=== PATIENT | male | born 1985 | race African-American/Black ===

== ENCOUNTER 2016-05-12 12:33 | Emergency (ER) | payer MEDICAID ==
--- NOTE | 2016-05-12 12:47 | ER Document Report ---
ED Medical Screen (RME) - General Stated Complaint: CHEST DISCOMFORT Mode of Arrival: Ambulatory Information source: Patient Notes: Patient complains of palpitations this morning off and on. Patient denies any chest pain, nausea, vomiting, or shortness of breath. hx: Hypertension, right bundle branch block I have greeted and performed a rapid initial assessment of this patient. A comprehensive ED assessment and evaluation of the patient, analysis of test results and completion of the medical decision making process will be conducted by additional ED providers. TRAVEL OUTSIDE OF THE [place] IN LAST 30 DAYS: No - Related Data Allergies/Adverse Reactions: sulfamethoxazole [From Bactrim] Allergy (Verified 07/08/15 13:34) trimethoprim [From Bactrim] Allergy (Verified 07/08/15 13:34) Past Medical History - Past Medical History Cardiac Medical History: Reports: Hx Hypercholesterolemia, Hx Hypertension Psychiatric Medical History: Denies: Hx Depression - Immunizations Immunizations up to date: Yes Hx Diphtheria, Pertussis, Tetanus Vaccination: Yes Physical Exam - Cardiovascular Rhythm: Regular Heart sounds: S1 appreciated, S2 appreciated
[2016-05-12 13:51] LABS: HEMATOCRIT 51.3 % (37.9-51.0); HEMOGLOBIN 17.3 g/dL (13.5-17.0); HGB HCT DIFFERENCE 0.6; MEAN CORPUSCULAR HEMOGLOBIN 27.9 pg (27.0-33.4); MEAN CORPUSCULAR HGB CONC 33.7 g/dL (32.0-36.0); MEAN CORPUSCULAR VOLUME 83 fl (80-97); RED CELL DISTRIBUTION WIDTH 14.3 % (11.5-14.0); WHITE BLOOD COUNT 4.8 10^3/uL (4.0-10.5)
[2016-05-12 14:08] LABS: ALANINE AMINOTRANSFERASE 61 U/L (21-72); ALBUMIN 4.3 g/dL (3.5-5.0); ALKALINE PHOSPHATASE 254 U/L (38-126); ANION GAP 10 (5-19); ASPARTATE AMINO TRANSFERASE 48 U/L (17-59); BILIRUBIN,TOTAL 0.9 mg/dL (0.2-1.3); BLOOD UREA NITROGEN 19 mg/dL (7-20); CARBON DIOXIDE 25 mmol/L (22-30); CHLORIDE 102 mmol/L (98-107); CREATINE KINASE 110 U/L (55-170); CREATININE RESULT 1.36 mg/dL (0.52-1.25); GLUCOSE 88 mg/dL (75-110); MAGNESIUM 1.8 mg/dL (1.6-2.3); POTASSIUM 4.5 mmol/L (3.6-5.0); TOTAL PROTEIN 7.4 g/dL (6.3-8.2)
[2016-05-12 14:24] LABS: BASOPHILS % (MANUAL) 0 % (0-2); EOSINOPHILS % (MANUAL) 4 % (0-6); LYMPHOCYTES % (MANUAL) 17 % (13-45); TOTAL CELLS COUNTED 100
[2016-05-12 14:25] LABS: RBC MORPHOLOGY COMMENT NORMO-CYTIC/CHROMIC
[2016-05-12 14:26] LABS: CREATINE KINASE MB 0.79 ng/mL (<4.55)
[2016-05-12 14:27] LABS: TROPONIN I < 0.012 ng/mL
--- NOTE | 2016-05-12 14:40 | ER Document Report ---
ED Cardiac - General Chief Complaint: Palpitations Stated Complaint: CHEST DISCOMFORT Time seen by provider: 14:40 Mode of Arrival: Ambulatory Information source: Patient Notes: 30-year-old male with a history of right bundle monik block and PVCs is treated by mail teller Dr. Holguin at [facility]. One year ago they did an ablation and he did not feel any PVCs for 8 months until last night He thinks he forgot one of his flecainide 100 mg that he supposed to take twice a day. He had run out he didn't get it filled untiltoday and took the dose at 11 AM. He has fewer PVCs since he took it 4 hours ago. He wants to make sure his blood work is okay. He has no chest pain or shortness of breath. TRAVEL OUTSIDE OF THE [place] IN LAST 30 DAYS: No - Related Data Allergies/Adverse Reactions: sulfamethoxazole [From Bactrim] Allergy (Verified 07/08/15 13:34) trimethoprim [From Bactrim] Allergy (Verified 07/08/15 13:34) Past Medical History - General Information source: Patient - Social History Smoking Status: Current Every Day Smoker Chew tobacco use (# tins/day): No Frequency of alcohol use: None Drug Abuse: None Lives with: Spouse/Significant other Family History: Reviewed & Not Pertinent Patient has suicidal ideation: No Patient has homicidal ideation: No - Past Medical History Cardiac Medical History: Reports: Hx Hypercholesterolemia, Hx Hypertension Renal/ Medical History: Denies: Hx Peritoneal Dialysis Past Surgical History: Reports: Hx Cardiac Surgery - ablation 1 year ago - Immunizations Immunizations up to date: Yes Hx Diphtheria, Pertussis, Tetanus Vaccination: Yes Review of Systems - Review of Systems Constitutional: No symptoms reported EENT: No symptoms reported Cardiovascular: See HPI Respiratory: No symptoms reported Gastrointestinal: No symptoms reported Genitourinary: No symptoms reported Male Genitourinary: No symptoms reported Musculoskeletal: No symptoms reported Skin: No symptoms reported Hematologic/Lymphatic: No symptoms reported Neurological/Psychological: No symptoms reported Physical Exam - Vital signs Vitals: Temp Pulse Resp BP Pulse Ox 97.7 F 89 19 121/77 99 05/12/16 12:45 05/12/16 12:45 05/12/16 12:45 05/12/16 12:45 05/12/16 12:45 Interpretation: Normal - General General appearance: Appears well, Alert - HEENT Head: Normocephalic, Atraumatic Eyes: Normal Conjunctiva: Normal Pupils: PERRL Pharynx: Normal Neck: Supple. No: Lymphadenopathy, Thyromegally - Respiratory Respiratory status: No respiratory distress Chest status: Nontender Breath sounds: Normal Chest palpation: Normal - Cardiovascular Rhythm: Regular Heart sounds: Normal auscultation Murmur: No - Abdominal Inspection: Normal Distension: No distension Bowel sounds: Normal Tenderness: Nontender Organomegaly: No organomegaly - Back Back: Normal, Nontender. No: CVA tenderness - Extremities General upper extremity: Normal inspection, Nontender, Normal color, Normal ROM , Normal temperature General lower extremity: Normal inspection, Nontender, Normal color, Normal ROM , Normal temperature, Normal weight bearing. No: Abel's sign - Neurological Neuro grossly intact: Yes Cognition: Normal Orientation: AAOx4 [place] Coma Scale Eye Opening: Spontaneous [place] Coma Scale Verbal: Oriented Enrique Coma Scale Motor: Obeys Commands Enrique Coma Scale Total: 15 Speech: Normal Motor strength normal: LUE, RUE, LLE, RLE Sensory: Normal - Psychological Associated symptoms: Normal affect, Normal mood - Skin Skin Temperature: Warm Skin Moisture: Dry Skin Color: Normal Skin irregularity: negative: Rash Course - Re-evaluation Re-evalutation: 05/12/16 15:41 hemoconcentrated. TSH 0.[address] lopez. who he can follow up with for the possible hyperthyroidism, consult dr. bell he can go home and follow up with the mail teller for the resurgence of PVC's 05/12/16 18:24 Free T3 and free T4 are within normal limits. The patient called me back and he googled about elevated creatinine and thyroid function and found that the Biotin supplement that he has been taking may cause that so he is going to stop it and see Dr. Lopez next week. - Vital Signs Vital signs: Temp Pulse Resp BP Pulse Ox 97.7 F 89 17 114/84 98 05/12/16 13:00 05/12/16 13:00 05/12/16 16:14 05/12/16 16:14 05/12/16 15:01 - Laboratory Result Diagrams: 05/12/16 13:35 05/12/16 13:35 Laboratory results interpreted by me: 02/18/17 02/18/17 02/18/17 13:35 13:35 13:35 RBC 6.20 H Hgb 17.3 H Hct 51.3 H RDW 14.3 H Monocytes % (Manual) 17 H Creatinine 1.36 H Alkaline Phosphatase 254 H TSH 0.07 L - EKG Interpretation by Me EKG shows normal: Sinus rhythm Rate: Normal Rhythm: PVC's - a few on the bedside monitor unifocal [place]/QRS: RBBB Additional EKG results interpreted by me: 05/12/16 20:33 no ekg changes from previous ekg's Discharge - Discharge Clinical Impression: Unifocal PVCs, possible hyperthyroidism, mild elevation of creatinine Condition: Good Disposition: HOME, SELF-CARE Instructions: PVCs (REPLACED BY [facility]) Additional Instructions: see Dr. Lopez for the possible overactive thyroid (hyperthyroidism) and the mildly elevated creatinine that he will have to recheck and possibly refer to telephone appointment clerk and herpetology teacher See your mail teller for follow-up in [place] Return to the emergency room for any worsening symptoms call me in 2 hours at [phone] for the thyroid additional test results Referrals: MARYLU HORNE MD [Primary Care Provider] - Follow up as needed
[2016-05-12 16:17] VITALS: BP 114/84
[2016-05-12 16:51] LABS: FREE T3 3.95 pg/mL (2.77-5.27)
--- NOTE | 2016-05-12 18:39 | EKG REPORT ---
SEVERITY:- ABNORMAL ECG - SINUS RHYTHM RBBB AND LPFB CONSIDER INFERIOR INFARCT : Confirmed by: Robert Cabrera 12-May-2016 18:39:23
== END 2016-05-12 16:17 | disposition home or self-care (01) ==
LOC: ER 12:33
DX: I49.3 Ventricular premature depolarization (principal); R00.2 Palpitations; R07.9 Chest pain, unspecified; F17.210 Nicotine dependence, cigarettes, uncomplicated
CPT/HCPCS: 36415; 71020; 80053; 82550; 82553; 83735; 84439; 84443; 84481; 84484; 85025; 93005; 93010; 99285

== ENCOUNTER → 2016-05-16 | Outpatient (CLI) | payer OTHER ==
[2016-05-16 14:15] LABS: ANION GAP 12 (5-19); BLOOD UREA NITROGEN 20 mg/dL (7-20); CALCIUM 9.9 mg/dL (8.4-10.2); CARBON DIOXIDE 22 mmol/L (22-30); CHLORIDE 101 mmol/L (98-107); CHOLESTEROL 164.57 mg/dL (0-200); CREATININE RESULT 1.42 mg/dL (0.52-1.25); Direct HDL 28 mg/dL (>40); GLUCOSE 86 mg/dL (75-110); MAGNESIUM 1.8 mg/dL (1.6-2.3); POTASSIUM 4.6 mmol/L (3.6-5.0); TRIGLYCERIDES 163 mg/dL (<150)
[2016-05-16 14:26] LABS: DIRECT LDL 88 mg/dL (<100)
[2016-05-16 14:31] LABS: VLDL CHOLESTEROL 32.6 mg/dL (10-31)
== END ==
LOC: CCC 12:50
DX: I10 Essential (primary) hypertension (principal); E78.5 Hyperlipidemia, unspecified; I49.9 Cardiac arrhythmia, unspecified
CPT/HCPCS: 36415; 80048; 80061; 83735

== ENCOUNTER → 2016-09-23 | Outpatient (CLI) | payer SELFPAY ==
--- NOTE | 2016-09-23 13:55 | RADIOLOGY REPORT (SQ) ---
EXAM DESCRIPTION: HIP LEFT AP/LATERAL COMPLETED DATE/TIME: 09/23/2016 11:53 am REASON FOR STUDY: LT HIP PAIN, OLD INJURY M25.552 COMPARISON: 05/25/2014 NUMBER OF VIEWS: Two views. TECHNIQUE: AP pelvis and additional frog-leg view of the left hip. LIMITATIONS: None. FINDINGS: MINERALIZATION: Normal. LEFT HIP: 3 cm nonaggressive lesion well corticated in the intertrochanteric left femur stable. Poss ible tiny loose bodies in the joint. RIGHT HIP: No fracture or dislocation. No worrisome bone lesions. PUBIS AND ISCHIUM: No fracture. PELVIS: No fracture. SACRUM: No fracture or dislocation. No worrisome bone lesions. LOWER LUMBAR SPINE: No fracture or dislocation. No worrisome bone lesions. No significant disc disea se. SOFT TISSUES: No findings. OTHER: No other significant finding. IMPRESSION: Stable lesion proximal left femur nonaggressive possibly bone cyst. Tiny radiodensities possible loose bodies in left hip joint. TECHNICAL DOCUMENTATION: JOB ID: [id number]- All Rights Reserved
== END ==
LOC: RAD 10:44
DX: M25.552 Pain in left hip (principal)

== ENCOUNTER 2016-12-19 16:09 | Emergency (ER) | payer SELFPAY ==
--- NOTE | 2016-12-19 16:47 | ER Document Report ---
ED General - General Chief Complaint: Dizziness Stated Complaint: DIZZINESS Time Seen by Provider: 12/19/16 16:45 Notes: The patient is a 31-year-old male, past medical history PVCs s/p ablation, hypertension, presents with 2 days of dry cough and congestion. Multiple family members have URI symptoms at home. He took his blood pressure earlier today and it was 90/65 after he took his blood pressure medications. On arrival to the ER, his blood pressure is 119/72. He denies fevers, hemoptysis, nausea, vomiting, diarrhea, constipation, focal weakness, numbness, tingling or dysuria. TRAVEL OUTSIDE OF THE [place] IN LAST 30 DAYS: No - Related Data Allergies/Adverse Reactions: sulfamethoxazole [From Bactrim] Allergy (Verified 12/19/16 16:13) trimethoprim [From Bactrim] Allergy (Verified 12/19/16 16:13) Home Medications: Current Home Medications Flecainide Acetate [Tambocor 100 mg Tablet] 1 tab PO BID 12/19/16 [History] Magnesium Oxide [Magnesium Oxide] 1 tab PO TID 12/19/16 [History] Potassium Chloride [Klor-Con 10] 10 meq PO DAILY 12/19/16 [History] Valsartan [Diovan] 160 mg PO DAILY 12/19/16 [History] Past Medical History - General Information source: Patient - Social History Smoking Status: Unknown if Ever Smoked Family History: Reviewed & Not Pertinent - Past Medical History Cardiac Medical History: Reports: Hx Hypercholesterolemia, Hx Hypertension Renal/ Medical History: Denies: Hx Peritoneal Dialysis Psychiatric Medical History: Denies: Hx Depression Past Surgical History: Reports: Hx Cardiac Surgery - ablation 1 year ago - Immunizations Immunizations up to date: Yes Hx Diphtheria, Pertussis, Tetanus Vaccination: Yes Review of Systems - Review of Systems Notes: REVIEW OF SYSTEMS: CONSTITUTIONAL: -fevers, -chills EENT: -eye pain, -difficulty swallowing, -nasal congestion CARDIOVASCULAR:-chest pain, -syncope. RESPIRATORY: +cough, -SOB GASTROINTESTINAL: -abdominal pain, - nausea, -vomiting, -diarrhea GENITOURINARY: -dysuria, -hematuria MUSCULOSKELETAL: -back pain, -neck pain SKIN: -rash or skin lesions. HEMATOLOGIC: -easy bruising or bleeding. LYMPHATIC: -swollen, enlarged glands. NEUROLOGICAL: -altered mental status or loss of consciousness, -headache, - neurologic symptoms PSYCHIATRIC: -anxiety, -depression. ALL OTHER SYSTEMS REVIEWED AND NEGATIVE. Physical Exam - Vital signs Vitals: Temp Pulse Resp BP Pulse Ox 98.7 F 91 16 114/71 99 12/19/16 16:13 12/19/16 16:13 12/19/16 16:13 12/19/16 16:13 12/19/16 16:13 - Notes Notes: PHYSICAL EXAMINATION: GENERAL: Well-appearing, well-nourished and in no acute distress. HEAD: Atraumatic, normocephalic. EYES: Pupils equal round and reactive to light, extraocular movements intact, sclera anicteric, conjunctiva are normal. ENT: nares patent, oropharynx clear without exudates. Moist mucous membranes. NECK: Normal range of motion, supple without lymphadenopathy LUNGS: Breath sounds clear to auscultation bilaterally and equal. No wheezes rales or rhonchi. HEART: Regular rate and rhythm without murmurs ABDOMEN: Soft, nontender, normoactive bowel sounds. No guarding, no rebound. No masses appreciated. EXTREMITIES: Normal range of motion, no pitting or edema. No cyanosis. NEUROLOGICAL: Cranial nerves grossly intact. Normal speech, normal gait. Normal sensory and motor exams. PSYCH: Normal mood, normal affect. SKIN: Warm, Dry, normal turgor, no rashes or lesions noted. Course - Re-evaluation Re-evalutation: Patient appears well and he has normal vital signs. His chest x-ray does not show any focal infiltrates or any acute changes. Told him to hold his evening amlodipine tonight due to his prior low blood pressures at home and to follow- up with his pathology technologist for further evaluation and treatment. Instructed patient about URI management symptomatically and he understands. - Vital Signs Vital signs: Temp Pulse Resp BP Pulse Ox 98.7 F 91 18 114/71 99 12/19/16 16:13 12/19/16 16:13 12/19/16 16:35 12/19/16 16:13 12/19/16 16:13 - Diagnostic Test Radiology reviewed: Image reviewed, Reports reviewed Radiology results interpreted by me: CXR: NAD Discharge - Discharge Clinical Impression: Cough URI (upper respiratory infection) Qualifiers: URI type: unspecified URI Qualified Code(s): J06.9 - Acute upper respiratory infection, unspecified Condition: Stable Disposition: HOME, SELF-CARE Additional Instructions: Do not take your amlodipine tonight. Keep a blood pressure log and speak to your pathology technologist for further adjustments to your medications. UPPER RESPIRATORY ILLNESS: You have a viral infection of the respiratory passages -- a "cold." This common infection causes nasal congestion, drainage, and often sore throat and cough. It is highly contagious. The disease usually lasts about 10 to 14 days. There is no "cure" for the viral infection -- it must run its course. If there is a complication, such as bacterial infection in the nose, sinuses, middle ear, or bronchial tubes, antibiotics may be required. The antibiotics won't affect the virus. Drink plenty of fluids. A humidifier may help. An expectorant medication or decongestant may make you more comfortable. Use acetaminophen or ibuprofen for fever or aches. See the doctor if fever persists over two days, if there is any significant worsening of your symptoms, or if you simply fail to improve as expected. COUGH-SUPPRESSANT & EXPECTORANT MEDICATION: You are to use a cough medication as needed for relief of symptoms. This medicine is a combination of an expectorant (to make the mucous thinner and more easily "coughed up") and a cough suppressant (to reduce the frequency of coughing). The cough-suppressant medicine is related to narcotics. You may experience mild nausea and sleepiness. Some patients who are very sensitive to narcotics may have stomach pain from this medicine. Taking the medicine with food reduces these side effects. Do not drive or work with machinery until you know how this medicine affects you. The expectorant should have no side effects. Iodine-containing expectorants (such as organidin) should not be taken by persons with active thyroid disease unless approved by your doctor. Call the doctor if you develop shortness of breath, hives, rash, itching, lightheadedness, or severe nausea and vomiting. USE OF ACETAMINOPHEN (Tylenol): Acetaminophen may be taken for pain relief or fever control. It's much safer than aspirin, offering a wider range of "safe" dosages. It is safe during . Some brand names are Tylenol, Panadol, Datril, Anacin 3, Tempra, and Liquiprin. Acetaminophen can be repeated every four hours. The following are maximum recommended dosages: >89 pounds or adults 650 mg to 900 mg Acetaminophen can be repeated every four hours. Maximum dose not to exceed 4000 mg a day. SMOKING: If you smoke, you should stop smoking. The tar and chemicals in cigarette smoke are harmful. Smoking has been shown to cause: emphysema chronic bronchitis lung cancer mouth and throat cancer stomach and pancreas cancer premature aging defects In addition, smoking increases ear and lung infections in children of smokers. FOLLOW-UP CARE: If you have been referred to a physician for follow-up care, call the physician s office for an appointment as you were instructed or within the next two days. If you experience worsening or a significant change in your symptoms, notify the physician immediately or return to the Emergency Department at any time for re-evaluation. Forms: Return to Work
--- NOTE | 2016-12-19 17:21 | RADIOLOGY REPORT (SQ) ---
EXAM DESCRIPTION: CHEST PA/LAT COMPLETED DATE/TIME: 12/19/2016 5:13 pm REASON FOR STUDY: cough COMPARISON: 05/12/2016 EXAM PARAMETERS: NUMBER OF VIEWS: two views TECHNIQUE: Digital Frontal and Lateral radiographic views of the chest acquired. RADIATION DOSE: NA LIMITATIONS: none FINDINGS: LUNGS AND PLEURA: No opacities, masses or pneumothorax. No pleural effusion. Chronic left midzone scarring. MEDIASTINUM AND HILAR STRUCTURES: No masses or contour abnormalities. HEART AND VASCULAR STRUCTURES: Heart normal size. No evidence for failure. BONES: No acute findings. HARDWARE: None in the chest. OTHER: No other significant finding. IMPRESSION: No acute pulmonary disease. TECHNICAL DOCUMENTATION: JOB ID: [id number] [employer]- All Rights Reserved
[2016-12-19 18:35] VITALS: BP 105/66
== END 2016-12-19 18:35 | disposition home or self-care (01) ==
LOC: ER 16:09
DX: J06.9 Acute upper respiratory infection, unspecified (principal); I10 Essential (primary) hypertension; R05 Cough; Z79.899 Other long term (current) drug therapy; Z88.1 Allergy status to other antibiotic agents
CPT/HCPCS: 71020; 99284

== ENCOUNTER 2016-12-20 14:04 | Emergency (ER) | payer SELFPAY ==
--- NOTE | 2016-12-20 14:27 | ER Document Report ---
ED Medical Screen (RME) - General Chief Complaint: Dizziness Stated Complaint: WEAKNESS Time Seen by Provider: 12/20/16 14:25 Notes: Patient was seen here yesterday. He was diagnosed upper respiratory infection. Patient returns today stating that he feels no better. He states he is still weak and has no energy. Yesterday his blood pressure was low and he states today he continues to be low. He states he has had to discontinue his blood pressure medications because his blood pressure has been running low. He denies any vomiting or diarrhea. No fevers. He has had some upper respiratory cough and congestion. TRAVEL OUTSIDE OF THE [place] IN LAST 30 DAYS: No - Related Data Allergies/Adverse Reactions: sulfamethoxazole [From Bactrim] Allergy (Verified 12/20/16 14:10) trimethoprim [From Bactrim] Allergy (Verified 12/20/16 14:10) Past Medical History - Social History Chew tobacco use (# tins/day): No Frequency of alcohol use: Heavy Drug Abuse: None - Past Medical History Cardiac Medical History: Reports: Hx Hypercholesterolemia, Hx Hypertension Renal/ Medical History: Denies: Hx Peritoneal Dialysis Psychiatric Medical History: Denies: Hx Depression Past Surgical History: Reports: Hx Cardiac Surgery - ablation 1 year ago - Immunizations Immunizations up to date: Yes Hx Diphtheria, Pertussis, Tetanus Vaccination: No Physical Exam - Vital signs Vitals: Temp Pulse Resp BP Pulse Ox 98.5 F 97 18 102/64 98 12/20/16 14:08 12/20/16 14:08 12/20/16 14:08 12/20/16 14:08 12/20/16 14:08 Course - Vital Signs Vital signs: Temp Pulse Resp BP Pulse Ox 98.5 F 97 18 102/64 98 12/20/16 14:08 12/20/16 14:08 12/20/16 14:08 12/20/16 14:08 12/20/16 14:08
[2016-12-20 15:23] LABS: ABSOLUTE EOSINOPHILS # (AUTO) 0.1 10^3/uL (0.0-0.6); ABSOLUTE LYMPHOCYTES (AUTO) 0.9 10^3/uL (0.5-4.7); ABSOLUTE NEUT (AUTO) 6.9 10^3/uL (1.7-8.2); BASOPHILS % (AUTO) 0.4 % (0-2); EOSINOPHILS % (AUTO) 1.4 % (0-6); HEMOGLOBIN 16.1 g/dL (13.5-17.0); HGB HCT DIFFERENCE 2.3; LYMPHOCYTES % (AUTO) 10.1 % (13-45); MEAN CORPUSCULAR HEMOGLOBIN 32.1 pg (27.0-33.4); MEAN CORPUSCULAR VOLUME 92 fl (80-97); MONOCYTES % (AUTO) 10.9 % (3-13); RED BLOOD COUNT 5.02 10^6/uL (4.35-5.55); SEGMENTED NEUTROPHILS % (AUTO) 77.2 % (42-78); WHITE BLOOD COUNT 8.9 10^3/uL (4.0-10.5)
[2016-12-20 15:28] LABS: APPEARANCE,URINE SLIGHTLY-CLOUDY; BILIRUBIN,URINE SMALL (NEGATIVE); GLUCOSE, URINE NEGATIVE (NEGATIVE); KETONES,URINE TRACE mg/dL (NEGATIVE); LEUKOCYTE ESTERASE,URINE NEGATIVE (NEGATIVE); NITRITE,URINE NEGATIVE (NEGATIVE); PROTEIN,URINE 100 mg/dL (NEGATIVE); URINE SPECIFIC GRAVITY 1.039
[2016-12-20 15:38] LABS: ALANINE AMINOTRANSFERASE 128 U/L (21-72); ALBUMIN 4.6 g/dL (3.5-5.0); ALKALINE PHOSPHATASE 287 U/L (38-126); ANION GAP 14 (5-19); ASPARTATE AMINO TRANSFERASE 123 U/L (17-59); BILIRUBIN,DIRECT 0.5 mg/dL (0.0-0.4); BILIRUBIN,TOTAL 0.9 mg/dL (0.2-1.3); BLOOD UREA NITROGEN 24 mg/dL (7-20); CALCIUM 9.8 mg/dL (8.4-10.2); CARBON DIOXIDE 22 mmol/L (22-30); CHLORIDE 104 mmol/L (98-107); CREATININE RESULT 1.62 mg/dL (0.52-1.25); GLUCOSE 115 mg/dL (75-110); MAGNESIUM 2.2 mg/dL (1.6-2.3); POTASSIUM 4.4 mmol/L (3.6-5.0); SODIUM 140.1 mmol/L (137-145); TOTAL PROTEIN 7.6 g/dL (6.3-8.2)
[2016-12-20] MEDS ORDERED: MECLIZINE HCL 25 MG TABLET PO ONE (15:51)
[2016-12-20] MEDS: NORMAL SALINE 1000 ML 1,000 ML IV PRN ×2 (15:57→16:02)
--- NOTE | 2016-12-20 18:23 | ER Document Report ---
ED Dizziness/Weakness - General Chief Complaint: Dizziness Stated Complaint: WEAKNESS Time Seen by Provider: 12/20/16 14:25 Mode of Arrival: Ambulatory Information source: Patient TRAVEL OUTSIDE OF THE [place] IN LAST 30 DAYS: No - HPI Patient complains to provider of: Dizziness Onset/Duration: Intermittent, Persistent Associated symptoms: Lightheaded Exacerbated by: Change in position Notes: Patient is a 31-year-old male presenting to the emergency room today complaining of dizziness with a slight headache, and episodes of decreased blood pressure, he denies any nausea, no vomiting, no abdominal pain, no fever or chills, states when he stands for too long or stands up too quickly he feels like he is going to pass out, he has had a cough, cold and congestion for the past few days, with several family members sick at home recently, and was seen in the emergency room yesterday for this, diagnosed with viral illness, patient is a smoker, states he drinks 2-3 beers daily, has a history of hypertension and cardiac ablation several years ago - Related Data Allergies/Adverse Reactions: sulfamethoxazole [From Bactrim] Allergy (Verified 12/20/16 14:10) trimethoprim [From Bactrim] Allergy (Verified 12/20/16 14:10) Past Medical History - General Information source: Patient - Social History Smoking Status: Current Every Day Smoker Chew tobacco use (# tins/day): No Frequency of alcohol use: Heavy Drug Abuse: None Family History: Reviewed & Not Pertinent - Past Medical History Cardiac Medical History: Reports: Hx Hypercholesterolemia, Hx Hypertension Renal/ Medical History: Denies: Hx Peritoneal Dialysis Psychiatric Medical History: Denies: Hx Depression Past Surgical History: Reports: Hx Cardiac Surgery - ablation 1 year ago - Immunizations Immunizations up to date: Yes Hx Diphtheria, Pertussis, Tetanus Vaccination: No Review of Systems - Review of Systems -: Yes ROS unobtainable due to patient's medical condition Constitutional: No symptoms reported EENT: No symptoms reported Cardiovascular: See HPI Respiratory: No symptoms reported Gastrointestinal: No symptoms reported Genitourinary: No symptoms reported Male Genitourinary: No symptoms reported Musculoskeletal: No symptoms reported Skin: No symptoms reported Hematologic/Lymphatic: No symptoms reported Neurological/Psychological: No symptoms reported -: Yes All other systems reviewed and negative Physical Exam - Vital signs Vitals: Temp Pulse Resp BP Pulse Ox 98.5 F 97 18 102/64 98 12/20/16 14:08 12/20/16 14:08 12/20/16 14:08 12/20/16 14:08 12/20/16 14:08 Interpretation: Normal - General General appearance: Appears well, Alert - HEENT Head: Normocephalic, Atraumatic Eyes: Normal Pupils: PERRL - Respiratory Respiratory status: No respiratory distress Chest status: Nontender Breath sounds: Normal Chest palpation: Normal - Cardiovascular Rhythm: Regular Heart sounds: Normal auscultation Murmur: No - Abdominal Inspection: Normal Distension: No distension Bowel sounds: Normal Tenderness: Nontender Organomegaly: No organomegaly - Back Back: Normal, Nontender - Extremities General upper extremity: Normal inspection, Nontender, Normal color, Normal ROM , Normal temperature General lower extremity: Normal inspection, Nontender, Normal color, Normal ROM , Normal temperature, Normal weight bearing. No: Abel's sign - Neurological Neuro grossly intact: Yes Cognition: Normal Orientation: AAOx4 [place] Coma Scale Eye Opening: Spontaneous Enrique Coma Scale Verbal: Oriented [place] Coma Scale Motor: Obeys Commands Enrique Coma Scale Total: 15 Speech: Normal Motor strength normal: LUE, RUE, LLE, RLE Sensory: Normal - Psychological Associated symptoms: Normal affect, Normal mood - Skin Skin Temperature: Warm Skin Moisture: Dry Skin Color: Normal Course - Re-evaluation Re-evalutation: 12/20/16 18:37 Patient is noted to have slightly elevated liver enzymes, therefore ultrasound was ordered of the right upper quadrant of the abdomen, otherwise labs are relatively unremarkable and stable, symptoms likely related to patient's recent cold symptoms causing him to have some sinus congestion and pressure related to dizziness, patient will be discharged with instructions for follow-up, advised to return if any additional concerns, patient acknowledges understanding and agreement with this plan - Vital Signs Vital signs: Temp Pulse Resp BP Pulse Ox 97.9 F 94 18 117/67 100 12/20/16 17:49 12/20/16 17:49 12/20/16 17:49 12/20/16 17:49 12/20/16 17:49 - Laboratory Result Diagrams: 12/20/16 14:40 12/20/16 14:40 Laboratory results interpreted by me: 12/20/16 12/20/16 12/20/16 14:40 14:40 14:40 Lymphocytes % 10.1 L BUN 24 H Creatinine 1.62 H Est GFR (Non-Af Amer) 50 L Glucose 115 H Direct Bilirubin 0.5 H AST 123 H ALT 128 H Alkaline Phosphatase 287 H Urine Protein 100 H Urine Ketones TRACE H Urine Bilirubin SMALL H Urine Urobilinogen 4.0 H - Diagnostic Test Radiology reviewed: Image reviewed, Reports reviewed Discharge - Discharge Clinical Impression: Dizziness, Elevated liver enzymes Condition: Stable Disposition: HOME, SELF-CARE Instructions: Dizziness ([facility]), Liver Function Abnormality ([facility]) Additional Instructions: Follow up with your primary care provider in one to 2 days. Return to the emergency room immediately if symptoms worsen or any additional concerns.
--- NOTE | 2016-12-20 18:45 | RADIOLOGY REPORT (SQ) ---
EXAM DESCRIPTION: U/S ABDOMEN LIMITED W/O DOP COMPLETED DATE/TIME: 12/20/2016 6:23 pm REASON FOR STUDY: PAIN COMPARISON: None. TECHNIQUE: Dynamic and static grayscale images acquired of the abdomen and recorded on PACS. Additio nal selected color Doppler and spectral images recorded. LIMITATIONS: Study is limited due to overlying bowel gas. FINDINGS: PANCREAS: The pancreas was incompletely visualized due to overlying bowel gas. The visual ized portions of the pancreatic head and body showed no pancreatic masses. LIVER: Echotexture is coarse with increased echogenicity consistent with fatty infiltration. LIVER VASCULATURE: Normal blood flow is identified in the portal vein. GALLBLADDER: No stones. Normal wall thickness. No pericholecystic fluid. ULTRASOUND-DETECTED FREEMAN'S SIGN: Negative. INTRAHEPATIC DUCTS AND COMMON DUCT: CBD and intrahepatic ducts normal caliber. No filling defects. INFERIOR VENA CAVA: Normal flow. AORTA: No aneurysm. RIGHT KIDNEY: 10.7 cm in length. Normal echogenicity. No solid or suspicious masses. No hydron ephrosis. No calcifications. PERITONEAL AND RIGHT PLEURAL SPACE: No ascites or effusions. OTHER: No other significant finding. IMPRESSION: FATTY INFILTRATION OF THE LIVER. No other significant intra-abdominal abnormalities wer e identified. Other findings as noted above TECHNICAL DOCUMENTATION: JOB ID: [id number] [employer]- All Rights Reserved
[2016-12-20] MEDS ORDERED: ONDANSETRON ODT 4 MG TAB (6 TAB/DSPK) PO PRN (18:56)
[2016-12-20 19:11] VITALS: BP 107/71
== END 2016-12-20 19:11 | disposition home or self-care (01) ==
LOC: ER 14:04
DX: R42 Dizziness and giddiness (principal); R74.8 Abnormal levels of other serum enzymes; Z88.2 Allergy status to sulfonamides
CPT/HCPCS: 99284; 96360; 36415; 83735; 85025; 80053; 81001; 76705; J7030

== ENCOUNTER → 2017-01-07 | Outpatient (CLI) | payer OTHER ==
[2017-01-07 10:24] LABS: ABSOLUTE EOSINOPHILS # (AUTO) 0.2 10^3/uL (0.0-0.6); ABSOLUTE LYMPHOCYTES (AUTO) 1.2 10^3/uL (0.5-4.7); ABSOLUTE MONOCYTES (AUTO) 0.8 10^3/uL (0.1-1.4); ABSOLUTE NEUT (AUTO) 2.7 10^3/uL (1.7-8.2); BASOPHILS % (AUTO) 0.8 % (0-2); EOSINOPHILS % (AUTO) 3.4 % (0-6); HEMATOCRIT 42.1 % (37.9-51.0); HEMOGLOBIN 14.7 g/dL (13.5-17.0); LYMPHOCYTES % (AUTO) 25.1 % (13-45); MEAN CORPUSCULAR HEMOGLOBIN 32.5 pg (27.0-33.4); MEAN CORPUSCULAR VOLUME 93 fl (80-97); MONOCYTES % (AUTO) 16.7 % (3-13); RED BLOOD COUNT 4.53 10^6/uL (4.35-5.55); RED CELL DISTRIBUTION WIDTH 14.3 % (11.5-14.0)
[2017-01-07 10:56] LABS: ALANINE AMINOTRANSFERASE 80 U/L (21-72); ALBUMIN 3.6 g/dL (3.5-5.0); ALKALINE PHOSPHATASE 140 U/L (38-126); ANION GAP 11 (5-19); ASPARTATE AMINO TRANSFERASE 46 U/L (17-59); BILIRUBIN,DIRECT 0.4 mg/dL (0.0-0.4); BILIRUBIN,TOTAL 0.5 mg/dL (0.2-1.3); BLOOD UREA NITROGEN 10 mg/dL (7-20); CALCIUM 9.3 mg/dL (8.4-10.2); CARBON DIOXIDE 25 mmol/L (22-30); CHLORIDE 108 mmol/L (98-107); CHOLESTEROL 104.82 mg/dL (0-200); CREATININE RESULT 1.28 mg/dL (0.52-1.25); Direct HDL 33 mg/dL (>40); GLUCOSE 95 mg/dL (75-110); MAGNESIUM 1.8 mg/dL (1.6-2.3); SODIUM 144.2 mmol/L (137-145); TRIGLYCERIDES 86 mg/dL (<150)
[2017-01-07 11:07] LABS: DIRECT LDL 55 mg/dL (<100)
== END ==
LOC: CCC 09:12
DX: I49.9 Cardiac arrhythmia, unspecified (principal); R94.5 Abnormal results of liver function studies; E78.5 Hyperlipidemia, unspecified
CPT/HCPCS: 36415; 80053; 80061; 83036; 83735; 84443; 85025

== ENCOUNTER → 2017-01-30 | Outpatient (CLI) | payer OTHER ==
[2017-02-01 05:40] LABS: HEPATITIS C VIRUS AB 0.1 s/co ratio (0.0-0.9)
== END ==
LOC: OD 16:44
DX: R79.89 Other specified abnormal findings of blood chemistry (principal)
CPT/HCPCS: 36415; 86704; 86705; 86803; 86804

== ENCOUNTER → 2017-02-08 | Outpatient (CLI) | payer OTHER ==
--- NOTE | 2017-02-08 10:37 | RADIOLOGY REPORT (SQ) ---
EXAM DESCRIPTION: U/S ABDOMEN LIMITED W/O DOP COMPLETED DATE/TIME: 02/08/2017 8:45 am REASON FOR STUDY: R79.89 OTHER SPECIFIED ABNORMAL FINDINGS OF BLOOD CHEMISTRY R79.89 OTHER SPECIFIE D ABNORMAL FINDINGS OF BLOOD CHEMISTRY COMPARISON: 12/20/2016 TECHNIQUE: Dynamic and static grayscale images acquired of the abdomen and recorded on PACS. Additio nal selected color Doppler and spectral images recorded. LIMITATIONS: None. FINDINGS: PANCREAS: Obscured by gas. LIVER: 19.3 cm. Increased echogenicity. LIVER VASCULATURE: Normal directional flow of the main portal vein and hepatic veins. GALLBLADDER: There is thickening gallbladder wall at 3 mm. No gallstones are seen. ULTRASOUND-DETECTED FREEMAN'S SIGN: Negative. INTRAHEPATIC DUCTS AND COMMON DUCT: CBD and intrahepatic ducts normal caliber. No filling defects. INFERIOR VENA CAVA: Normal flow. AORTA: No aneurysm. RIGHT KIDNEY: Normal size, 11.4 cm. Normal echogenicity. No solid or suspicious masses. No hydroneph rosis. No calcifications. PERITONEAL AND RIGHT PLEURAL SPACE: No ascites or effusions. OTHER: No other significant findings. IMPRESSION: 1. Fatty infiltration of the liver with hepatomegaly. 2. There is gallbladder wall thickening. Correlate for cholecystitis. TECHNICAL DOCUMENTATION: JOB ID: [id number] [employer]- All Rights Reserved
== END ==
LOC: RAD 07:56
DX: R79.89 Other specified abnormal findings of blood chemistry (principal)
CPT/HCPCS: 76705

== ENCOUNTER 2017-03-21 00:15 | Emergency (ER) | payer OTHER ==
[2017-03-21 00:24] VITALS: BP 133/82
[2017-03-21] MEDS ORDERED: ACETAMINOPHEN 325 MG TABLET PO ONE (01:12)
--- NOTE | 2017-03-21 01:13 | ER Document Report ---
HPI - HPI Patient complains to provider of: ankle injury Onset: Yesterday Onset/Duration: Sudden Quality of pain: Achy Pain Level: 4 Context: Patient states he was moving furniture yesterday and rolled his right ankle. Patient complains of continued right ankle pain with ambulation. Associated Symptoms: Other - Right ankle injury Exacerbated by: Standing, Movement, Walking Relieved by: Denies Similar symptoms previously: No Recently seen / treated by doctor: No - ROS ROS below otherwise negative: Yes Systems Reviewed and Negative: Yes All other systems reviewed and negative - NEURO Neurology: DENIES: Weakness - REPRODUCTIVE Reproductive: DENIES: : - MUSCULOSKELETAL Musculoskeletal: REPORTS: Extremity pain, Swelling - DERM Skin Color: Normal Skin Problems: None Past Medical History - General Information source: Patient - Social History Smoking Status: Current Every Day Smoker Smoking Education Provided: Yes Frequency of alcohol use: None Drug Abuse: None Occupation: Foodservice Family History: Reviewed & Not Pertinent - Past Medical History Cardiac Medical History: Reports: Hx Hypercholesterolemia, Hx Hypertension, Other - PVCs Renal/ Medical History: Denies: Hx Peritoneal Dialysis Psychiatric Medical History: Denies: Hx Depression Past Surgical History: Reports: Hx Cardiac Surgery - ablation 1 year ago - Immunizations Immunizations up to date: Yes Hx Diphtheria, Pertussis, Tetanus Vaccination: No Vertical Provider Document - CONSTITUTIONAL Agree With Documented VS: Yes Exam Limitations: No Limitations General Appearance: WD/WN, No Apparent Distress - INFECTION CONTROL TRAVEL OUTSIDE OF THE [place] IN LAST 30 DAYS: No - HEENT HEENT: Atraumatic, Normocephalic - NECK Neck: Normal Inspection - RESPIRATORY Respiratory: No Respiratory Distress O2 Sat by Pulse Oximetry: 96 - CARDIOVASCULAR Pulses: Normal: Dorsalis pedis - BACK Back: Normal Inspection - MUSCULOSKELETAL/EXTREMETIES Musculoskeletal/Extremeties: MAEW, FROM, Tender - Right ankle tenderness over medial lateral malleolar area, trace edema to the right lateral malleolar area, no deformity. negative: Eccymosis - NEURO Level of Consciousness: Awake, Alert, Appropriate Motor/Sensory: No Motor Deficit - DERM Integumentary: Warm, Dry, No Rash Course - Vital Signs Vital signs: Temp Pulse Resp BP Pulse Ox 98.3 F 71 20 133/82 H 96 03/21/17 00:24 03/21/17 00:24 03/21/17 00:24 03/21/17 00:24 03/21/17 00:24 - Diagnostic Test Radiology reviewed: Pending, Image reviewed Procedures - Immobilization Right Ankle Pre-Proc Neuro Vasc Exam: Normal Immobilizer type: Ankle stirrup Performed by: PCT Post-Proc Neuro Vasc Exam: Normal Alignment checked and good: Yes Discharge - Discharge Clinical Impression: Ankle sprain Qualifiers: Encounter type: initial encounter Involved ligament of ankle: unspecified ligament Laterality: right Qualified Code(s): S93.401A - Sprain of unspecified ligament of right ankle, initial encounter Condition: Stable Disposition: HOME, SELF-CARE Instructions: Ankle Stirrup Splint ([facility]), Use of Crutches ([facility]), Ice & Elevation ([facility]), Oral Narcotic Medication ([facility]), Sprained Ankle ([facility]) Additional Instructions: Return immediately for any new or worsening symptoms Followup with your primary care provider, call tomorrow to make a followup appointment Weightbearing as tolerated Follow-up with orthopedic doctor for any continued pain or problems Prescriptions: Naproxen [Naprosyn 250 Nmg Tablet] 1 tab PO BID #14 tablet Forms: Smoking Cessation Education, Return to Work Referrals: [facility] [Provider Group] - Follow up as needed
[2017-03-21] MEDS ORDERED: HYDROCODONE/ACETAMINOPHEN 5-325 MG (6 TAB/ER DISP) PO PRN (01:50)
--- NOTE | 2017-03-21 01:51 | RADIOLOGY REPORT (SQ) ---
EXAM DESCRIPTION: ANKLE RIGHT COMPLETE CLINICAL HISTORY: rolled ankle COMPARISON: None. FINDINGS: 3 views of the right ankle. No acute fracture or dislocation. Normal osseous mineralization. Tibial plafond and talar dome are intact. Base of the fifth metatarsal is intact. Plantar calcaneal spur. IMPRESSION: No acute fracture or dislocation.
== END 2017-03-21 02:12 | disposition home or self-care (01) ==
LOC: ER 00:15
PROC: 2W3QX1Z Immobilization of Right Lower Leg using Splint (ICD-10-PCS; principal; 2017-03-21)
DX: S93.401A Sprain of unspecified ligament of right ankle, initial encounter (principal); M25.571 Pain in right ankle and joints of right foot; M79.89 Other specified soft tissue disorders; F17.200 Nicotine dependence, unspecified, uncomplicated; X50.1XXA Overexertion from prolonged static or awkward postures, initial encounter
CPT/HCPCS: 99283; 73610; 29515; L1902

== ENCOUNTER 2017-10-06 15:37 | Emergency (ER) | payer SELFPAY ==
--- NOTE | 2017-10-06 16:53 | ER Document Report ---
ED Medical Screen (RME) - General Chief Complaint: Chest Pain Stated Complaint: CHEST PAIN Time Seen by Provider: 10/06/17 16:51 Mode of Arrival: Ambulatory Information source: Patient Notes: 32-year-old male with hypertension, hyperlipidemia, recent cardiac ablation for multiple PVCs presents with complaint of chest pain that started 7 hours prior to arrival while at rest. Patient describes the pain as sharp, intermittent. He denies any associated nausea, diaphoresis, lightheadedness. He is a half of pack per day smoker. He denies any recent illness, cough, fever, chills. Patient's current medications include metoprolol, flecainide and simvastatin for which he states he has been compliant. I have greeted and performed a rapid initial assessment of this patient. A comprehensive ED assessment and evaluation of the patient including analysis of labs and imaging ( if obtained) and completion of medical decision making will be conducted by an additional ED provider. PHYSICAL EXAMINATION: GENERAL: Well-appearing, well-nourished and in no acute distress. HEAD: Atraumatic, normocephalic. EYES: Pupils equal round extraocular movements intact, conjunctiva are normal. ENT: Nares patent NECK: Normal range of motion LUNGS: No respiratory distress Musculoskeletal: Normal range of motion NEUROLOGICAL: Normal speech, normal gait. PSYCH: Normal mood, normal affect. SKIN: Warm, Dry, normal turgor, no rashes or lesions noted. TRAVEL OUTSIDE OF THE [place] IN LAST 30 DAYS: No - Related Data Allergies/Adverse Reactions: sulfamethoxazole [From Bactrim] Allergy (Verified 10/06/17 16:47) trimethoprim [From Bactrim] Allergy (Verified 10/06/17 16:47) Past Medical History - Social History Chew tobacco use (# tins/day): No Frequency of alcohol use: None Drug Abuse: None - Past Medical History Cardiac Medical History: Reports: Hx Hypercholesterolemia, Hx Hypertension Renal/ Medical History: Denies: Hx Peritoneal Dialysis Psychiatric Medical History: Denies: Hx Depression Past Surgical History: Reports: Hx Cardiac Surgery - ablation 1 year ago - Immunizations Immunizations up to date: Yes Hx Diphtheria, Pertussis, Tetanus Vaccination: No Physical Exam - Vital signs Vitals: Temp Pulse Resp BP Pulse Ox 98.9 F 82 16 128/83 H 98 10/06/17 16:01 10/06/17 16:01 10/06/17 16:01 10/06/17 16:01 10/06/17 16:01 Course - Vital Signs Vital signs: Temp Pulse Resp BP Pulse Ox 98.9 F 82 16 128/83 H 98 10/06/17 16:01 10/06/17 16:01 10/06/17 16:01 10/06/17 16:01 10/06/17 16:01 Doctor's Discharge - Discharge Referrals: DAMASO ORELLANA MD [Primary Care Provider] - Follow up as needed
[2017-10-06 17:30] LABS: HEMATOCRIT 46.5 % (37.9-51.0); HEMOGLOBIN 15.7 g/dL (13.5-17.0); MEAN CORPUSCULAR HGB CONC 33.8 g/dL (32.0-36.0); MEAN CORPUSCULAR VOLUME 83 fl (80-97); PLATELET COUNT 219 10^3/uL (150-450); RED BLOOD COUNT 5.62 10^6/uL (4.35-5.55); RED CELL DISTRIBUTION WIDTH 14.6 % (11.5-14.0); WHITE BLOOD COUNT 4.9 10^3/uL (4.0-10.5)
--- NOTE | 2017-10-06 17:36 | RADIOLOGY REPORT (SQ) ---
EXAM DESCRIPTION: CHEST 2 VIEWS COMPLETED DATE/TIME: 10/06/2017 5:23 pm REASON FOR STUDY: chest pain COMPARISON: 12/19/2016 EXAM PARAMETERS: NUMBER OF VIEWS: two views TECHNIQUE: Digital Frontal and Lateral radiographic views of the chest acquired. RADIATION DOSE: NA LIMITATIONS: none FINDINGS: LUNGS AND PLEURA: No acute opacities, masses or pneumothorax. Similar interstitial markin gs -parenchymal scarring. No pleural effusion. MEDIASTINUM AND HILAR STRUCTURES: Stable. HEART AND VASCULAR STRUCTURES: Heart normal size. No evidence for failure. BONES: No acute findings. HARDWARE: None in the chest. OTHER: No other significant finding. IMPRESSION: NO ACUTE RADIOGRAPHIC FINDING IN THE CHEST. TECHNICAL DOCUMENTATION: JOB ID: [id number] [place]-72 2010 [employer]- All Rights Reserved Reading location - IP/workstation name: [email or web address]
[2017-10-06 17:53] LABS: ANION GAP 11 (5-19); BLOOD UREA NITROGEN 18 mg/dL (7-20); CALCIUM 9.7 mg/dL (8.4-10.2); CARBON DIOXIDE 26 mmol/L (22-30); CHLORIDE 103 mmol/L (98-107); CREATINE KINASE 49 U/L (55-170); GLUCOSE 86 mg/dL (75-110); SODIUM 139.6 mmol/L (137-145)
[2017-10-06 18:04] LABS: CREATINE KINASE MB 0.68 ng/mL (<4.55); TROPONIN I 0.02 ng/mL
[2017-10-06 18:06] LABS: ABSOLUTE LYMPHOCYTES# (MANUAL) 1.2 10^3/uL (0.5-4.7); ABSOLUTE MONOCYTES # (MANUAL) 0.8 10^3/uL (0.1-1.4); ABSOLUTE NEUTROPHILS# (MANUAL) 2.7 10^3/uL (1.7-8.2); BAND NEUTROPHILS % (MANUAL) 1 % (3-5); BASOPHILS % (MANUAL) 0 % (0-2); EOSINOPHILS % (MANUAL) 2 % (0-6); LYMPHOCYTES % (MANUAL) 25 % (13-45); MONOCYTES % (MANUAL) 17 % (3-13); SEGMENTED NEUTROPHILS % (MAN) 55 % (42-78); TOTAL CELLS COUNTED 100
[2017-10-06 18:07] LABS: PLATELET COMMENT ADEQUATE; RBC MORPHOLOGY COMMENT NORMO-CYTIC/CHROMIC
--- NOTE | 2017-10-06 20:39 | ER Document Report ---
ED General - General Chief Complaint: Chest Pain Stated Complaint: CHEST PAIN Time Seen by Provider: 10/06/17 16:51 Mode of Arrival: Ambulatory Notes: Patient is a 32 year old male with a past medical history of ventricular tachycardia status post multiple ablations who presents with intermittent chest pain since earlier this morning. The patient states that he has episodes of stabbing pain to the left side of his chest that lasts for approximately 5 seconds and then completely resolved. He states these episodes come on abruptly without any clear trigger and resolve without any intervention. He denies a history of similar symptoms in the past. He denies any symptoms at the time of my evaluation. He denies any associated shortness of breath, nausea , vomiting or diaphoresis. He has not contacted his manager front office regarding today's concerns. TRAVEL OUTSIDE OF THE [place] IN LAST 30 DAYS: No - Related Data Allergies/Adverse Reactions: sulfamethoxazole [From Bactrim] Allergy (Verified 10/06/17 16:47) trimethoprim [From Bactrim] Allergy (Verified 10/06/17 16:47) Past Medical History - General Information source: Patient - Social History Smoking Status: Current Every Day Smoker Chew tobacco use (# tins/day): No Frequency of alcohol use: None Drug Abuse: None Lives with: Family Family History: Reviewed & Not Pertinent Patient has suicidal ideation: No Patient has homicidal ideation: No - Past Medical History Cardiac Medical History: Reports: Hx Hypercholesterolemia, Hx Hypertension Renal/ Medical History: Denies: Hx Peritoneal Dialysis Psychiatric Medical History: Denies: Hx Depression Past Surgical History: Reports: Hx Cardiac Surgery - ablation 1 year ago - Immunizations Immunizations up to date: Yes Hx Diphtheria, Pertussis, Tetanus Vaccination: No Review of Systems - Review of Systems Notes: Constitutional: Negative for fever. HENT: Negative for sore throat. Eyes: Negative for visual changes. Cardiovascular: Positive for chest pain. Respiratory: Negative for shortness of breath. Gastrointestinal: Negative for abdominal pain, vomiting or diarrhea. Genitourinary: Negative for dysuria. Musculoskeletal: Negative for back pain. Skin: Negative for rash. Neurological: Negative for headaches, weakness or numbness. 10 point ROS negative except as marked above and in HPI. Physical Exam - Vital signs Vitals: Temp Pulse Resp BP Pulse Ox 98.9 F 82 16 128/83 H 98 10/06/17 16:01 10/06/17 16:01 10/06/17 16:01 10/06/17 16:01 10/06/17 16:01 Interpretation: Normal Notes: PHYSICAL EXAMINATION: GENERAL: Well-appearing, well-nourished and in no acute distress. HEAD: Atraumatic, normocephalic. EYES: Pupils equal round and reactive to light, extraocular movements intact, sclera anicteric, conjunctiva are normal. ENT: nares patent, oropharynx clear without exudates. Moist mucous membranes. NECK: Normal range of motion, supple without lymphadenopathy LUNGS: Breath sounds clear to auscultation bilaterally and equal. No wheezes rales or rhonchi. HEART: Regular rate and rhythm without murmurs ABDOMEN: Soft, nontender, normoactive bowel sounds. No guarding, no rebound. No masses appreciated. EXTREMITIES: Normal range of motion, no pitting or edema. No cyanosis. NEUROLOGICAL: No focal neurological deficits. Moves all extremities spontaneously and on command. PSYCH: Normal mood, normal affect. SKIN: Warm, Dry, normal turgor, no rashes or lesions noted. Course - Re-evaluation Re-evalutation: 10/06/17 20:36 Presentation of chest pain in an otherwise well appearing patient. Low clinical suspicion for ACS given clinical history, exam, EKG without ST elevations or depressions, and negative initial troponin. HEART score less than or equal to 3. PE also seems unlikely given clinical history, absence of tachycardia or dyspnea. Patient is PERC criteria negative. CXR without evidence of pneumothorax or pneumonia. No widened mediastinum. Aortic dissection also seems unlikely given history, symmetric pulses, CXR, and vitals. Pain has very atypical characterization of intermittent episodes of stabbing pain that lasted less than 5 seconds and none has been present for at least the past 6-8 hours. I do not see an indication for serial cardiac markers. Patient had a negative cardiac catheterization within the last 2 months. At this time will discharge with return precautions and follow-up recommendations. Verbal discharge instructions given a the bedside and opportunity for questions given. Medication warnings reviewed. Patient is in agreement with this plan and has verbalized understanding of return precautions and the need for primary care follow-up in the next 24-72 hours. - Vital Signs Vital signs: Temp Pulse Resp BP Pulse Ox 98.9 F 82 20 135/94 H 99 10/06/17 16:01 10/06/17 16:01 10/06/17 21:01 10/06/17 21:01 10/06/17 21:01 - Laboratory Result Diagrams: 10/06/17 17:10 10/06/17 17:10 Laboratory results interpreted by me: 10/06/17 10/06/17 17:10 17:10 RBC 5.62 H RDW 14.6 H Band Neutrophils % 1 L Monocytes % (Manual) 17 H Creatinine 1.59 H Est GFR (Non-Af Amer) 50 L Creatine Kinase 49 L - Diagnostic Test Radiology reviewed: Image reviewed, Reports reviewed Radiology results interpreted by me: 10/06/17 20:38 Chest x-ray: No acute infiltrate or pneumothorax - EKG Interpretation by Me Additional EKG results interpreted by me: 10/06/17 20:38 Sinus rhythm. Rate 71. Right bundle branch block unchanged from prior. No ST elevations or depressions. QTC is 461. Discharge - Discharge Clinical Impression: Chest pain Qualifiers: Chest pain type: unspecified Qualified Code(s): R07.9 - Chest pain, unspecified Condition: Good Disposition: HOME, SELF-CARE Additional Instructions: You were seen today for chest pain. The exact cause of your pain is unclear. However, based on your cardiac enzyme testing, chest x-ray, and EKG it does not appear that it is from an immediately life-threatening cause at this time. Although your testing here is normal is critical that you follow-up with your primary care physician for continued evaluation of this chest pain. Please return to emergency department immediately if you have worsening of your chest pain, shortness of breath, vomiting, become unable to exert yourself due to pain or difficulty breathing, you pass out, or have any pain that radiates into your arms, jaw, or back. Please also return if you have any additional symptoms that are concerning to you. Referrals: DAMASO ORELLANA MD [Primary Care Provider] - Follow up as needed
[2017-10-06 21:13] VITALS: BP 135/94
--- NOTE | 2017-10-07 00:55 | EKG REPORT ---
SEVERITY:- ABNORMAL ECG - SINUS RHYTHM RBBB AND LPFB : Confirmed by: Sera No MD 07-Oct-2017 00:54:18
== END 2017-10-06 21:12 | disposition home or self-care (01) ==
LOC: ER 15:37
DX: R07.9 Chest pain, unspecified (principal); I45.10 Unspecified right bundle-branch block; I10 Essential (primary) hypertension; F17.200 Nicotine dependence, unspecified, uncomplicated; Z86.79 Personal history of other diseases of the circulatory system; Z98.890 Other specified postprocedural states; Z88.1 Allergy status to other antibiotic agents
CPT/HCPCS: 36415; 71046; 80048; 82550; 82553; 84484; 85025; 93005; 93010; 99285

== ENCOUNTER 2017-11-09 12:48 | Inpatient (IN) | payer SELFPAY ==
[2017-11-09] MEDS ORDERED: NORMAL SALINE 1000 ML 1,000 ML IV ONE ×2 (14:18→15:47)
--- NOTE | 2017-11-09 14:56 | RADIOLOGY REPORT (SQ) ---
EXAM DESCRIPTION: CT LTD RENAL STONE PROTOCOL ON COMPLETED DATE/TIME: 11/09/2017 2:27 pm REASON FOR STUDY: right flank pain dark urine COMPARISON: 01/15/2015 TECHNIQUE: CT scan of the abdomen and pelvis performed without intravenous or oral contrast. Images reviewed with lung, soft tissue, and bone windows. Reconstructed coronal and sagittal MPR images revi ewed. All images stored on PACS. All CT scanners at this facility use dose modulation, iterative reconstruction, and/or weight based d osing when appropriate to reduce radiation dose to as low as reasonably achievable (ALARA). [facility]: Dose Right [facility]: CareDose [facility]: Dose Right [facility]: Teradose 4D [facility]: Smart [facility] RADIATION DOSE: CT Rad equipment meets quality standard of care and radiation dose reduction techniq ues were employed. CTDIvol: 10.8 mGy. DLP: 603 mGy-cm.mGy. LIMITATIONS: None. FINDINGS: LOWER CHEST: Chronic appearing changes of the visualized lung bases. Juxta diaphragmatic lymph node measuring 3.6 x 2.1 cm. NON-CONTRASTED LIVER, SPLEEN, ADRENALS: Evaluation limited by lack of IV contrast. Liver is enlarged with a slightly nodular contour. Spleen is enlarged measuring 14.7 cm in craniocaudal dimension. A drenal glands have a normal noncontrast CT appearance. PANCREAS: No masses. No peripancreatic inflammatory changes. GALLBLADDER: No identified stones by CT criteria. No inflammatory changes to suggest cholecystitis. RIGHT KIDNEY AND URETER: No suspicious masses. Assessment limited by lack of IV contrast. Nonobstru cting 3 mm stone within the proximal right ureter. No associated hydronephrosis or hydroureter. LEFT KIDNEY AND URETER: No suspicious masses. Assessment limited by lack of IV contrast. No signifi cant calcifications. No hydronephrosis or hydroureter. AORTA AND RETROPERITONEUM: No aneurysm. Minimal scattered calcified plaque of the visualized aortoil iac system. Retroperitoneal adenopathy. Reference node measures 1.2 cm in short axis diameter on th e left (axial image 40). There is a soft tissue mass that is isodense to the adjacent liver anterior to the proximal IVC and lateral to the pancreatic head measuring approximately 4.3 x 4.3 cm. Border s however are difficult to discern due to the lack of intravenous contrast and proximity to the adjac ent structures. BOWEL AND PERITONEAL CAVITY: No obvious masses or inflammatory changes. No dilated loops of bowel. Trace free fluid. No free air. Multiple enlarged lymph nodes within the anterior abdomen adjacent t o the inferior stomach. Reference node measures 9 mm in short axis diameter (axial image 32). APPENDIX: Not visualized. PELVIS, BLADDER, AND ABDOMINAL WALL:No abnormal masses. No free fluid. Bladder normal. BONES: 2.5 cm unchanged lucent lesion with a sclerotic margin of the left intertrochanteric region. Some large imaging dating back to 2017. No additional sinister bone lesions. OTHER: No other significant finding. IMPRESSION: 1. Non obstructing 3 mm stone in the proximal right ureter without associated hydronephrosis or hydro ureter. 2. Intraperitoneal and retroperitoneal adenopath. Findings are concerning for metastatic disease or lymphoma. 3. Questionable retroperitoneal mass/lymph node just lateral to the pancreatic head and anterior to t he IVC. Findings may also represent the caudate lobe of the liver. Contrast-enhanced imaging would be of benefit. 4. Splenomegaly. 5. Hepatomegaly with slightly nodular contour, suggestive of hepatic cirrhosis. 6. Trace pelvic ascites. COMMENT: Quality ID # [id number]: Final reports with documentation of one or more dose reduction techniques (e.g., Automated exposure control, adjustment of the mA and/or kV according to patient size, use of iterative reconstruction technique) TECHNICAL DOCUMENTATION: JOB ID: [id number] [employer]- All Rights Reserved Reading location - IP/workstation name: [email or web address]
[2017-11-09 15:10] LABS: APPEARANCE,URINE CLEAR; BILIRUBIN,URINE NEGATIVE (NEGATIVE); GLUCOSE, URINE NEGATIVE (NEGATIVE); KETONES,URINE NEGATIVE (NEGATIVE); LEUKOCYTE ESTERASE,URINE NEGATIVE (NEGATIVE); NITRITE,URINE NEGATIVE (NEGATIVE); PROTEIN,URINE 100 mg/dL (NEGATIVE); URINE SPECIFIC GRAVITY 1.021
[2017-11-09 15:11] LABS: COLOR,URINE RED
[2017-11-09 15:21] LABS: URINE AMPHETAMINES SCREEN NEGATIVE; URINE BARBITURATES SCREEN NEGATIVE; URINE BENZODIAZEPINES SCREEN NEGATIVE; URINE COCAINE SCREEN NEGATIVE; URINE MARIJUANA (THC) SCREEN NEGATIVE; URINE METHADONE SCREEN NEGATIVE; URINE PHENCYCLIDINE SCREEN NEGATIVE
[2017-11-09 15:40] LABS: ALANINE AMINOTRANSFERASE 39 U/L (21-72); ALBUMIN 3.7 g/dL (3.5-5.0); ALKALINE PHOSPHATASE 363 U/L (38-126); ANION GAP 11 (5-19); ASPARTATE AMINO TRANSFERASE 44 U/L (17-59); BILIRUBIN,DIRECT 0.5 mg/dL (0.0-0.4); BILIRUBIN,TOTAL 0.8 mg/dL (0.2-1.3); BLOOD UREA NITROGEN 16 mg/dL (7-20); CALCIUM 9.4 mg/dL (8.4-10.2); CARBON DIOXIDE 26 mmol/L (22-30); CHLORIDE 103 mmol/L (98-107); CREATINE KINASE 61 U/L (55-170); GLUCOSE 83 mg/dL (75-110); SODIUM 139.6 mmol/L (137-145); TOTAL PROTEIN 7.5 g/dL (6.3-8.2)
--- NOTE | 2017-11-09 15:48 | ER Document Report ---
ED GI/ - General Chief Complaint: Urinary Problem Stated Complaint: URINATING PROBLEMS Time Seen by Provider: 11/09/17 14:14 Mode of Arrival: Ambulatory Information source: Patient Notes: 32-year-old male presented to the ED around 2:00 for complaint of hematuria with right flank pain. He states that he felt kind of strange for the last couple weeks but not really bad. He states he has lost 30 pounds in the last 6 months and needs to know why he is urinating so frequently. He states he drinks a lot of water but still feels dehydrated all the time. He states he has a history of 2 cardiac ablations due to irregular fast heart beats with multiple PVCs. He states he also has high blood pressure and cholesterol but no other medical history. TRAVEL OUTSIDE OF THE [place] IN LAST 30 DAYS: No - HPI Patient complains to provider of: Flank pain, Hematuria Onset: Other - Patient states he has had very frequent urination with urgency since yesterday. He states it is progressively gotten worse all night and the day. He states that he had clear urine earlier than it became cloudy and then darker and darker as the day progressed. He states he has been drinking a plenty of water. Timing/Duration: Gradual Quality of pain: Achy - Right flank Severity at maximum: Moderate Severity in ED: Moderate Pain Level: 3 Location: Right flank Associated symptoms: Hematuria, Other - Right flank pain Exacerbated by: Denies Relieved by: Denies Similar symptoms previously: No Recently seen / treated by doctor: No - Related Data Allergies/Adverse Reactions: sulfamethoxazole [From Bactrim] Allergy (Verified 11/09/17 12:49) trimethoprim [From Bactrim] Allergy (Verified 11/09/17 12:49) Past Medical History - General Information source: Patient - Social History Smoking Status: Current Every Day Smoker Cigarette use (# per day): Yes - Half a pack a day Chew tobacco use (# tins/day): No Smoking Education Provided: Yes - Minutes Frequency of alcohol use: None Drug Abuse: None Occupation: Fast food Lives with: Spouse/Significant other Family History: Reviewed & Not Pertinent Patient has suicidal ideation: No Patient has homicidal ideation: No - Past Medical History Cardiac Medical History: Reports: Hx Hypercholesterolemia, Hx Hypertension, Other - Fast irregular heartbeat that he has needed heart ablations 2, PVCs Pulmonary Medical History: Reports: None EENT Medical History: Reports: None Neurological Medical History: Reports: None Endocrine Medical History: Reports: None Renal/ Medical History: Reports: None Malignancy Medical History: Reports None GI Medical History: Reports: None Musculoskeletal Medical History: Reports None Skin Medical History: Reports None Psychiatric Medical History: Reports: None Traumatic Medical History: Reports: None Infectious Medical History: Reports: None Past Surgical History: Reports: Hx Cardiac Catheterization - Cardiac ablation 2 , Hx Cardiac Surgery - ablation 1 year ago - Immunizations Immunizations up to date: Yes Hx Diphtheria, Pertussis, Tetanus Vaccination: No Review of Systems - Review of Systems Constitutional: No symptoms reported EENT: No symptoms reported Cardiovascular: No symptoms reported Respiratory: No symptoms reported Gastrointestinal: No symptoms reported Genitourinary: Frequency, Flank pain, Hematuria, Urgency Male Genitourinary: No symptoms reported Musculoskeletal: No symptoms reported Skin: No symptoms reported Hematologic/Lymphatic: No symptoms reported Neurological/Psychological: No symptoms reported -: Yes All other systems reviewed and negative Physical Exam - Vital signs Vitals: Temp Pulse Resp BP Pulse Ox 98.6 F 65 12 142/91 H 98 11/09/17 12:59 11/09/17 12:59 11/09/17 12:59 11/09/17 12:59 11/09/17 12:59 Interpretation: Normal - General General appearance: Appears well, Alert - HEENT Head: Normocephalic, Atraumatic Eyes: Normal Pupils: PERRL - Respiratory Respiratory status: No respiratory distress Chest status: Nontender Breath sounds: Normal Chest palpation: Normal - Cardiovascular Rhythm: Regular Heart sounds: Normal auscultation Murmur: No - Abdominal Inspection: Normal Distension: No distension Bowel sounds: Normal Tenderness: Nontender Organomegaly: No organomegaly - Back Back: Normal, CVA tenderness - right flank - Extremities General upper extremity: Normal inspection, Nontender, Normal color, Normal ROM , Normal temperature General lower extremity: Normal inspection, Nontender, Normal color, Normal ROM , Normal temperature, Normal weight bearing. No: Abel's sign - Neurological Neuro grossly intact: Yes Cognition: Normal Orientation: AAOx4 Dane Coma Scale Eye Opening: Spontaneous Enrique Coma Scale Verbal: Oriented Enrique Coma Scale Motor: Obeys Commands Dane Coma Scale Total: 15 Speech: Normal Motor strength normal: LUE, RUE, LLE, RLE Sensory: Normal - Psychological Associated symptoms: Normal affect, Normal mood - Skin Skin Temperature: Warm Skin Moisture: Dry Skin Color: Normal Course - Re-evaluation Re-evalutation: 11/09/17 20:[address] palomino and I went in and discussed the CAT scan and lab work with the patient. Dr. palomino had a long conversation about what the CAT scan meant. Patient was very confused and anxious due to the results of the CAT scan. I then consulted Dr. Campos the oncologist concerning the CAT scan results. He stated with his hematuria, his creatinine level, and his kidney stone he would need to be admitted. He stated he would like him to be well hydrated so that he can get a CAT scan tomorrow with contrast which she is not able to be done today with a creatinine of 1.6. Hospitalist was consulted and came and saw the patient. He admitted the patient to medical floor for hematuria and acute kidney injury due to the kidney stone. Patient was admitted with IV fluids running. - Vital Signs Vital signs: Temp Pulse Resp BP Pulse Ox 98.2 F 65 17 145/100 H 99 11/09/17 18:22 11/09/17 18:22 11/09/17 18:22 11/09/17 18:22 11/09/17 18:22 - Laboratory Result Diagrams: 11/09/17 15:03 11/09/17 15:03 Laboratory results interpreted by me: 11/09/17 11/09/17 11/09/17 14:08 15:03 15:03 RDW 15.4 H Monocytes % 18.5 H Creatinine 1.61 H Est GFR (Non-Af Amer) 50 L Direct Bilirubin 0.5 H Alkaline Phosphatase 363 H Urine Protein 100 H Urine Blood MODERATE H Urine Urobilinogen 2.0 H - Diagnostic Test Radiology reviewed: Image reviewed, Reports reviewed Discharge - Discharge Clinical Impression: Hematuria, gross, Acute kidney injury Disposition: ADMITTED INPATIENT Admitting Provider: Hospitalist - [place] [facility] Admitted: Medical Floor
[2017-11-09 16:01] LABS: ABSOLUTE EOSINOPHILS # (AUTO) 0.1 10^3/uL (0.0-0.6); ABSOLUTE LYMPHOCYTES (AUTO) 0.9 10^3/uL (0.5-4.7); ABSOLUTE MONOCYTES (AUTO) 0.8 10^3/uL (0.1-1.4); TOTAL CELLS COUNTED % (AUTO) 100 %
[2017-11-09 16:06] LABS: ABSOLUTE NEUT (AUTO) 2.5 10^3/uL (1.7-8.2); BASOPHILS % (AUTO) 0.6 % (0-2); HEMATOCRIT 46.4 % (37.9-51.0); HEMOGLOBIN 15.6 g/dL (13.5-17.0); LYMPHOCYTES % (AUTO) 20.5 % (13-45); MEAN CORPUSCULAR HEMOGLOBIN 28.1 pg (27.0-33.4); MEAN CORPUSCULAR HGB CONC 33.5 g/dL (32.0-36.0); MEAN CORPUSCULAR VOLUME 84 fl (80-97); MONOCYTES % (AUTO) 18.5 % (3-13); PLATELET COUNT 238 10^3/uL (150-450); RED BLOOD COUNT 5.55 10^6/uL (4.35-5.55); RED CELL DISTRIBUTION WIDTH 15.4 % (11.5-14.0); SEGMENTED NEUTROPHILS % (AUTO) 57.4 % (42-78); WHITE BLOOD COUNT 4.4 10^3/uL (4.0-10.5)
[2017-11-09] MEDS ORDERED: TAMSULOSIN HCL 0.4 MG CAP.SR.24H PO ONE (16:36)
[2017-11-09 17:21] LABS: INTERNATIONAL RATION (INR) 1.08; PROTHROMBIN TIME 14.6 SEC (11.4-15.4)
[2017-11-09] MEDS ORDERED: ACETAMINOPHEN 325 MG TABLET PO PRN (17:21)
[2017-11-09] MEDS ORDERED: ONDANSETRON 4 MG TAB.RAPDIS PO PRN (17:21)
[2017-11-09 17:22] LABS: FIBRINOGEN 339 mg/dL (209-497)
--- NOTE | 2017-11-09 17:51 | PDOC H&P ---
History of Present Illness Admission Date/PCP: 11/09/17 17:25 History of Present Illness: AARON ARIZMENDI is a 32 year old black male patient with past medical history of cirrhosis of the liver, hypertension, ventricular tachycardia requires electrical cardioversion and right bundle branch block, presented with chief complaint of gross painless hematuria of 1 day duration. Patient denies any chills, fever, palpitation or diaphoresis. He does not have any nausea, vomiting, abdominal pain or diarrhea. He endorses mild right flank pain. Initial workup shows acute kidney injury with creatinine of 1.[address] scan of the abdomen shows nonobstructing 3 mm stone in the proximal right ureter without associated hydronephrosis or hydroureter. There is also incidental finding of intra-peritoneal and retroperitoneal adenopathy and per radiologist the findings are concerning for for metastatic disease or lymphoma. For the acute kidney injury and hematuria patient started on aggressive hydration and the patient is being managed with Percocet. Dr. Campos has been consulted for his incidental finding of intraperitoneal and retroperitoneal adenopathy. 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 He smokes half a pack a day. Past Medical History Cardiac Medical History: Reports: Hyperlipidema, Hypertension Psychiatric Medical History: Denies: Depression Social History Smoking Status: Current Some Day Smoker Frequency of Alcohol Use: Social Hx Recreational Drug Use: No Drugs: None Hx Prescription Drug Abuse: No - Advance Directive Resuscitation Status: Full Code Family History Family History: Reviewed & Not Pertinent, DM, Hypertension Parental Family History Reviewed: Yes Children Family History Reviewed: Yes Sibling(s) Family History Reviewed.: Yes Medication/Allergy Home Medications: Amlodipine Besylate [Amlodipine Besylate] 10 mg PO DAILY 05/16/15 Simvastatin [Simvastatin] 20 mg PO DAILY 05/16/15 Chlorthalidone [Chlorthalidone 25 mg Tablet] 12.5 mg PO DAILY 10/20/15 Flecainide Acetate [Tambocor 100 mg Tablet] 1 tab PO BID 12/19/16 Magnesium Oxide [Magnesium Oxide] 1 tab PO TID 12/19/16 Potassium Chloride [Klor-Con 10] 10 meq PO DAILY 12/19/16 Valsartan [Diovan] 160 mg PO DAILY 12/19/16 Naproxen [Naprosyn 250 Nmg Tablet] 1 tab PO BID #14 tablet 12/28/17 Allergies/Adverse Reactions: sulfamethoxazole [From Bactrim] Allergy (Verified 11/09/17 12:49) trimethoprim [From Bactrim] Allergy (Verified 11/09/17 12:49) Review of Systems Constitutional: PRESENT: as per HPI Cardiovascular: PRESENT: as per HPI Gastrointestinal: PRESENT: as per HPI Genitourinary: PRESENT: hematuria Neurological: PRESENT: as per HPI Physical Exam Vital Signs: Temp Pulse Resp BP Pulse Ox 98.6 F 65 12 142/91 H 98 11/09/17 12:59 11/09/17 12:59 11/09/17 12:59 11/09/17 12:59 11/09/17 12:59 General appearance: PRESENT: no acute distress, well-developed, well-nourished Head exam: PRESENT: atraumatic, normocephalic Eye exam: PRESENT: conjunctiva pink, EOMI, PERRLA. ABSENT: scleral icterus Ear exam: PRESENT: normal external ear exam Mouth exam: PRESENT: moist, tongue midline Neck exam: ABSENT: carotid bruit, JVD, lymphadenopathy, thyromegaly Respiratory exam: PRESENT: clear to auscultation cecilio. ABSENT: rales, rhonchi, wheezes Cardiovascular exam: PRESENT: RRR. ABSENT: diastolic murmur, rubs, systolic murmur Pulses: PRESENT: normal dorsalis pedis pul Vascular exam: PRESENT: normal capillary refill GI/Abdominal exam: PRESENT: normal bowel sounds, soft. ABSENT: distended, guarding, mass, organolmegaly, rebound, tenderness Rectal exam: PRESENT: deferred Gentrourinary exam: PRESENT: other - Right CVA tenderness Extremities exam: PRESENT: full ROM. ABSENT: calf tenderness, clubbing, pedal edema Neurological exam: PRESENT: alert, awake, oriented to person, oriented to place , oriented to time, oriented to situation, CN II-XII grossly intact. ABSENT: motor sensory deficit Psychiatric exam: PRESENT: appropriate affect, normal mood. ABSENT: homicidal ideation, suicidal ideation Skin exam: PRESENT: dry, intact, warm. ABSENT: cyanosis, rash Results Impressions: Limited or Localized CT 11/09/17 14:16 IMPRESSION: 1. Non obstructing 3 mm stone in the proximal right ureter without associated hydronephrosis or hydroureter. 2. Intraperitoneal and retroperitoneal adenopath. Findings are concerning for metastatic disease or lymphoma. 3. Questionable retroperitoneal mass/lymph node just lateral to the pancreatic head and anterior to the IVC. Findings may also represent the caudate lobe of the liver. Contrast-enhanced imaging would be of benefit. 4. Splenomegaly. 5. Hepatomegaly with slightly nodular contour, suggestive of hepatic cirrhosis. 6. Trace pelvic ascites. Assessment & Plan - Diagnosis (1) Gross hematuria Is this a current diagnosis for this admission?: Yes Plan: Due to #2 (2) Calculus of proximal right ureter Is this a current diagnosis for this admission?: Yes Plan: Hydration and Flomax (3) Acute kidney injury Is this a current diagnosis for this admission?: Yes Plan: Aggressive hydration (4) Intra and retroperitoneal adenopathy Is this a current diagnosis for this admission?: Yes Plan: Patient is going to be evaluated by Dr. Campos. (5) Compensated cirrhosis of the liver Is this a current diagnosis for this admission?: Yes Plan: Stable (6) Hypertension Qualifiers: Hypertension type: essential hypertension Qualified Code(s): I10 - Essential (primary) hypertension Is this a current diagnosis for this admission?: Yes Plan: Continue home medication (7) Hyperlipidemia Qualifiers: Hyperlipidemia type: unspecified Qualified Code(s): E78.5 - Hyperlipidemia , unspecified Is this a current diagnosis for this admission?: Yes Plan: Continue home medication - Inpatient Certification Medical Necessity: Need Close Monitoring Due to Risk of Patient Decompensation, Need For IV Fluids
[2017-11-09] MEDS ORDERED: FLECAINIDE ACETATE 100 MG TABLET PO ONE (19:00)
[2017-11-09] MEDS ORDERED: SIMVASTATIN 40 MG TABLET PO ONE (19:00)
[2017-11-09] MEDS ORDERED: MAGNESIUM OXIDE 400 MG TABLET PO ONE (19:00)
[2017-11-09] MEDS ORDERED: METOPROLOL TARTRATE 25 MG TABLET PO ONE (19:00)
[2017-11-09] MEDS: NORMAL SALINE 1000 ML 1,000 ML IV PRN (20:11)
[2017-11-09] MEDS ORDERED: FLECAINIDE ACETATE 100 MG TABLET ONE (20:12)
[2017-11-10] MEDS: NORMAL SALINE 1000 ML 1,000 ML IV PRN ×3 (04:52→23:13)
[2017-11-10] MEDS: LANSOPRAZOLE 30 MG TAB.RAP.DR PO SCH (06:06)
[2017-11-10 07:19] LABS: ABSOLUTE EOSINOPHILS # (AUTO) 0.2 10^3/uL (0.0-0.6); ABSOLUTE LYMPHOCYTES (AUTO) 0.8 10^3/uL (0.5-4.7); ABSOLUTE MONOCYTES (AUTO) 0.8 10^3/uL (0.1-1.4); ABSOLUTE NEUT (AUTO) 2.1 10^3/uL (1.7-8.2); BASOPHILS % (AUTO) 0.6 % (0-2); LYMPHOCYTES % (AUTO) 20.4 % (13-45); MEAN CORPUSCULAR HEMOGLOBIN 28.5 pg (27.0-33.4); MEAN CORPUSCULAR VOLUME 84 fl (80-97); MONOCYTES % (AUTO) 19.9 % (3-13); PLATELET COUNT 160 10^3/uL (150-450); RED BLOOD COUNT 4.65 10^6/uL (4.35-5.55); RED CELL DISTRIBUTION WIDTH 15.2 % (11.5-14.0); SEGMENTED NEUTROPHILS % (AUTO) 55.1 % (42-78); TOTAL CELLS COUNTED % (AUTO) 100 %; WHITE BLOOD COUNT 3.9 10^3/uL (4.0-10.5)
[2017-11-10 07:22] LABS: HEMOGLOBIN 13.2 g/dL (13.5-17.0)
[2017-11-10 07:31] LABS: BLOOD UREA NITROGEN 19 mg/dL (7-20); CALCIUM 8.4 mg/dL (8.4-10.2); GLUCOSE 95 mg/dL (75-110)
[2017-11-10 07:32] LABS: ANION GAP 9 (5-19); CARBON DIOXIDE 21 mmol/L (22-30); CHLORIDE 108 mmol/L (98-107); SODIUM 137.7 mmol/L (137-145)
[2017-11-10] MEDS: METOPROLOL TARTRATE 25 MG TABLET PO SCH ×2 (09:15→21:51)
[2017-11-10] MEDS: MAGNESIUM OXIDE 400 MG TABLET PO SCH ×3 (09:16→18:29)
[2017-11-10] MEDS ORDERED: FLECAINIDE ACETATE 100 MG TABLET PO SCH (10:00)
[2017-11-10] MEDS: FLECAINIDE ACETATE 100 MG TABLET PO SCH ×2 (11:13→21:49)
--- NOTE | 2017-11-10 12:14 | PDOC PROGRESS REPORT ---
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 He CT scan of the abdomen revealed 0.3 mm right distal ureteral stone without obstruction. Incidentally CT of the abdomen also showed intra- abdominal and retroperitoneal lymphadenopathy worrisome for metastatic disease. His blood workup also revealed acute kidney injury with creatinine of 1.7 and after aggressive hydration his creatinine trended down to 1.3. CT scan of the abdomen and pelvis with contrast scheduled for this afternoon. Oncologist Dr. Campos is on board. Reason For Visit: GROSS HEMATURIA,ACUTE KIDNEY INJURY,INTRAPERITONEA Physical Exam Vital Signs: Temp Pulse Resp BP Pulse Ox 98.7 F 67 20 120/77 98 11/09/17 23:48 11/09/17 23:48 11/09/17 23:48 11/09/17 23:48 11/09/17 23:48 Intake & Output 11/09/17 11/10/17 11/11/17 06:59 06:59 06:59 Intake Total 1999 Balance 1999 Weight 95.9 kg General appearance: PRESENT: no acute distress, well-developed, well-nourished Head exam: PRESENT: atraumatic, normocephalic Eye exam: PRESENT: conjunctiva pink, EOMI, PERRLA. ABSENT: scleral icterus Ear exam: PRESENT: normal external ear exam Mouth exam: PRESENT: moist, tongue midline Neck exam: ABSENT: carotid bruit, JVD, lymphadenopathy, thyromegaly Respiratory exam: PRESENT: clear to auscultation cecilio. ABSENT: rales, rhonchi, wheezes Cardiovascular exam: PRESENT: RRR. ABSENT: diastolic murmur, rubs, systolic murmur Pulses: PRESENT: normal dorsalis pedis pul Vascular exam: PRESENT: normal capillary refill GI/Abdominal exam: PRESENT: normal bowel sounds, soft. ABSENT: distended, guarding, mass, organolmegaly, rebound, tenderness Rectal exam: PRESENT: deferred Gentrourinary exam: PRESENT: other - Right CVA tenderness Extremities exam: PRESENT: full ROM. ABSENT: calf tenderness, clubbing, pedal edema Neurological exam: PRESENT: alert, awake, oriented to person, oriented to place , oriented to time, oriented to situation, CN II-XII grossly intact. ABSENT: motor sensory deficit Psychiatric exam: PRESENT: appropriate affect, normal mood. ABSENT: homicidal ideation, suicidal ideation Skin exam: PRESENT: dry, intact, warm. ABSENT: cyanosis, rash Results Laboratory Results: 11/10/17 06:09 11/10/17 06:09 11/10/17 11/10/17 06:09 06:09 WBC 3.9 L RBC 4.65 Hgb 13.2 L D Hct 39.0 MCV 84 MCH 28.5 MCHC 34.0 RDW 15.2 H Plt Count 160 Seg Neutrophils % 55.1 Lymphocytes % 20.4 Monocytes % 19.9 H Eosinophils % 4.0 Basophils % 0.6 Absolute Neutrophils 2.1 Absolute Lymphocytes 0.8 Absolute Monocytes 0.8 Absolute Eosinophils 0.2 Absolute Basophils 0.0 Sodium 137.7 Potassium 4.0 Chloride 108 H Carbon Dioxide 21 L Anion Gap 9 BUN 19 Creatinine 1.34 H Est GFR ( Amer) > 60 Est GFR (Non-Af Amer) > 60 Glucose 95 Calcium 8.4 Impressions: Limited or Localized CT 11/09/17 14:16 IMPRESSION: 1. Non obstructing 3 mm stone in the proximal right ureter without associated hydronephrosis or hydroureter. 2. Intraperitoneal and retroperitoneal adenopath. Findings are concerning for metastatic disease or lymphoma. 3. Questionable retroperitoneal mass/lymph node just lateral to the pancreatic head and anterior to the IVC. Findings may also represent the caudate lobe of the liver. Contrast-enhanced imaging would be of benefit. 4. Splenomegaly. 5. Hepatomegaly with slightly nodular contour, suggestive of hepatic cirrhosis. 6. Trace pelvic ascites. Assessment & Plan - Diagnosis (1) Gross hematuria Is this a current diagnosis for this admission?: Yes Plan: Due to #2 (2) Calculus of proximal right ureter Is this a current diagnosis for this admission?: Yes Plan: Hydration and Flomax (3) Acute kidney injury Is this a current diagnosis for this admission?: Yes Plan: Aggressive hydration (4) Intra and retroperitoneal adenopathy Is this a current diagnosis for this admission?: Yes Plan: Patient scheduled to have CT abdomen and pelvis with contrast since his creatinine is trending down. (5) Compensated cirrhosis of the liver Is this a current diagnosis for this admission?: Yes Plan: Alcohol induced. Currently patient is sober (6) Hypertension Qualifiers: Hypertension type: essential hypertension Qualified Code(s): I10 - Essential (primary) hypertension Is this a current diagnosis for this admission?: Yes Plan: Continue home medication (7) Hyperlipidemia Qualifiers: Hyperlipidemia type: unspecified Qualified Code(s): E78.5 - Hyperlipidemia , unspecified Is this a current diagnosis for this admission?: Yes Plan: Continue home medication
--- NOTE | 2017-11-10 12:31 | PDOC CONSULTATION ---
Consultation Consult Date: 11/10/17 Attending physician:: ALISON OSULLIVAN Consult reason:: Newly noted diffuse adenopathy History of Present Illness Admission Date/PCP: 11/09/17 17:25 Patient complains of: Hematuria, weight loss History of Present Illness: AARON ARIZMENDI is a 32 year old male with recent history of hematuria, this is really what brought him in, he was not experiencing any severe back pain but he has had a weight loss of over 60 pounds over the last year. He tells me that some of that was intentional. He denies fevers chills and night sweats. Upon admission given the hematuria he had a CT stone protocol of the abdomen pelvis, this unfortunately indicated diffuse adenopathy, especially in the retroperitoneum with lymph nodes as large as 4-6 cm, also other abdominal adenopathy. He also had some element of acute renal failure with creatinine in the 1.6 range it is improved now to 1.3. He has had aggressive hydration. He feels better today. Past Medical History Cardiac Medical History: Reports: Hyperlipidema, Hypertension, Other - Fast irregular heartbeat that he has needed heart ablations 2, PVCs Cardiac History Note: Bog Cutter is Dr. Martinez [facility] and Dr. Villarreal EP of [facility] Pulmonary Medical History: Reports: None EENT Medical History: Reports: None Neurological Medical History: Reports: None Endocrine Medical History: Reports: None Renal/ Medical History: Reports: None Malignancy Medical History: Reports: None GI Medical History: Reports: None Musculoskeltal Medical History: Reports: None Skin Medical History: Reports: None Psychiatric Medical History: Reports: None Denies: Depression Traumatic Medical History: Reports: None Infectious Medical History: Reports: None Past Surgical History Past Surgical History: Reports: Cardiac Catheterization - Cardiac ablation 2, Other - Ablation Social History Information Source: Patient Lives with: Spouse/Significant other Smoking Status: Current Every Day Smoker Cigarettes Packs Per Day: 0.5 Frequency of Alcohol Use: None - He quit alcohol use about 1 year ago, previously was drinking 6-8 beers per day Hx Recreational Drug Use: No Drugs: None Hx Prescription Drug Abuse: No - Advance Directive Resuscitation Status: Full Code Family History Family History: Reviewed & Not Pertinent Parental Family History Reviewed: Yes Children Family History Reviewed: Yes Sibling(s) Family History Reviewed.: Yes Medication/Allergy Home Medications: Flecainide Acetate [Tambocor 100 mg Tablet] 100 mg PO Q12 11/10/17 Magnesium Oxide [Mag-Ox 400 mg Tablet] 400 mg PO Q8 11/10/17 Metoprolol Tartrate [Lopressor 25 mg Tablet] 25 mg PO Q12 11/10/17 Simvastatin [Zocor 20 mg Tablet] 20 mg PO QHS 11/10/17 Allergies/Adverse Reactions: sulfamethoxazole [From Bactrim] Allergy (Verified 11/09/17 12:49) trimethoprim [From Bactrim] Allergy (Verified 11/09/17 12:49) Review of Systems Constitutional: PRESENT: weight loss. ABSENT: chills, fever(s), headache(s), weight gain Eyes: ABSENT: visual disturbances Ears: ABSENT: hearing changes Cardiovascular: ABSENT: chest pain, dyspnea on exertion, edema, orthropnea, palpitations Respiratory: ABSENT: cough, hemoptysis Gastrointestinal: ABSENT: abdominal pain, constipation, diarrhea, hematemesis, hematochezia, nausea, vomiting Genitourinary: PRESENT: hematuria. ABSENT: dysuria Musculoskeletal: ABSENT: joint swelling Integumentary: ABSENT: rash, wounds Neurological: ABSENT: abnormal gait, abnormal speech, confusion, dizziness, focal weakness, syncope Psychiatric: ABSENT: anxiety, depression, homidical ideation, suicidal ideation Endocrine: ABSENT: cold intolerance, heat intolerance, polydipsia, polyuria Hematologic/Lymphatic: ABSENT: easy bleeding, easy bruising Physical Exam Vital Signs: Temp Pulse Resp BP Pulse Ox 98.7 F 67 20 120/77 98 11/09/17 23:48 11/09/17 23:48 11/09/17 23:48 11/09/17 23:48 11/09/17 23:48 Intake & Output 11/09/17 11/10/17 11/11/17 06:59 06:59 06:59 Intake Total 1999 Balance 1999 Weight 95.9 kg General appearance: PRESENT: no acute distress, well-developed, well-nourished Head exam: PRESENT: atraumatic, normocephalic Eye exam: PRESENT: conjunctiva pink, EOMI, PERRLA. ABSENT: scleral icterus Ear exam: PRESENT: normal external ear exam Mouth exam: PRESENT: moist, tongue midline Neck exam: ABSENT: carotid bruit, JVD, lymphadenopathy, thyromegaly Respiratory exam: PRESENT: clear to auscultation cecilio. ABSENT: rales, rhonchi, wheezes Cardiovascular exam: PRESENT: RRR. ABSENT: diastolic murmur, rubs, systolic murmur Pulses: PRESENT: normal dorsalis pedis pul Vascular exam: PRESENT: normal capillary refill GI/Abdominal exam: PRESENT: normal bowel sounds, soft. ABSENT: distended, guarding, mass, organolmegaly, rebound, tenderness Rectal exam: PRESENT: deferred Extremities exam: PRESENT: full ROM. ABSENT: calf tenderness, clubbing, pedal edema Neurological exam: PRESENT: alert, awake, oriented to person, oriented to place , oriented to time, oriented to situation, CN II-XII grossly intact. ABSENT: motor sensory deficit Psychiatric exam: PRESENT: appropriate affect, normal mood. ABSENT: homicidal ideation, suicidal ideation Skin exam: PRESENT: dry, intact, warm. ABSENT: cyanosis, rash Results Laboratory Results: 11/10/17 06:09 11/10/17 06:09 11/10/17 11/10/17 06:09 06:09 WBC 3.9 L RBC 4.65 Hgb 13.2 L D Hct 39.0 MCV 84 MCH 28.5 MCHC 34.0 RDW 15.2 H Plt Count 160 Seg Neutrophils % 55.1 Lymphocytes % 20.4 Monocytes % 19.9 H Eosinophils % 4.0 Basophils % 0.6 Absolute Neutrophils 2.1 Absolute Lymphocytes 0.8 Absolute Monocytes 0.8 Absolute Eosinophils 0.2 Absolute Basophils 0.0 Sodium 137.7 Potassium 4.0 Chloride 108 H Carbon Dioxide 21 L Anion Gap 9 BUN 19 Creatinine 1.34 H Est GFR ( Amer) > 60 Est GFR (Non-Af Amer) > 60 Glucose 95 Calcium 8.4 Impressions: Limited or Localized CT 11/09/17 14:16 IMPRESSION: 1. Non obstructing 3 mm stone in the proximal right ureter without associated hydronephrosis or hydroureter. 2. Intraperitoneal and retroperitoneal adenopath. Findings are concerning for metastatic disease or lymphoma. 3. Questionable retroperitoneal mass/lymph node just lateral to the pancreatic head and anterior to the IVC. Findings may also represent the caudate lobe of the liver. Contrast-enhanced imaging would be of benefit. 4. Splenomegaly. 5. Hepatomegaly with slightly nodular contour, suggestive of hepatic cirrhosis. 6. Trace pelvic ascites. Status: Image reviewed by me Assessment & Plan - Diagnosis (1) Intra and retroperitoneal adenopathy Is this a current diagnosis for this admission?: Yes Plan: Overall picture concerning for lymphoma process, in conjunction with extreme weight loss. CT of the neck chest abdomen pelvis ordered with IV contrast as his creatinine is improved to 1.3. Based upon that we will need to proceed with core needle biopsy of some area. - Time Time Spent: Greater than 70 Minutes - Inpatient Certification Based on my medical assessment, after consideration of the patient's comorbidities, presenting symptoms, or acuity I expect that the services needed warrant INPATIENT care.: Yes I certify that my determination is in accordance with my understanding of Medicare's requirements for reasonable and necessary INPATIENT services [42 CFR 412.3e].: Yes Medical Necessity: Need For IV Fluids, Need for Surgery, Risk of Complication if Not Cared For in Hospital
--- NOTE | 2017-11-10 13:37 | RADIOLOGY REPORT (SQ) ---
EXAM DESCRIPTION: CT SOFT TISSUE NECK WITH; CT ABD/PELVIS WITH IV ONLY; CT CHEST WITH COMPLETED DATE/TIME: 11/10/2017 12:32 pm REASON FOR STUDY: LYMPHOMA; Intraperitoneal and retroperitoneal lymphadenopathy; Lymphoma RENAL FUNCTION: BUN 19 creatinine 1.34 CHEST: See below COMPARISON: CT abdomen pelvis 11/09/2017 RADIATION DOSE: CT Rad equipment meets quality standard of care and radiation dose reduction techniq ues were employed. CTDIvol: 17.1 - 26.1 mGy. DLP: 4646 mGy-cm. mGy. TECHNIQUE: CT scan of the soft tissues of the neck, chest abdomen and pelvis performed with intraven ous and oral contrast using helical scanning technique with dynamic intravenous contrast injection. Images reviewed with lung, soft tissue and bone windows. Reconstructed coronal and sagittal MPR imag es reviewed. Delayed images were not acquired. All images stored on PACS. All CT scanners at this facility use dose modulation, iterative reconstruction, and/or weight based d osing when appropriate to reduce radiation dose to as low as reasonably achievable (ALARA). [facility]: Dose Right [facility]: [employer] [facility]: Dose Right [facility]: Teradose 4D [facility]: [employer] CT scan of the chest performed using helical scanning technique with dynamic intravenous contrast inj ection. Images reviewed with lung, soft tissue and bone windows. Reconstructed coronal and sagittal MPR images reviewed. All images stored on PACS. FINDINGS: NECK: SKULL BASE: Intact. MAJOR SALIVARY GLANDS: No solid or cystic masses. No inflammatory changes. LYMPHADENOPATHY: Symmetrically prominent bilateral supraclavicular lymph nodes. Otherwise, no adenop athy of the neck. MUCOSAL MASSES OR ASYMMETRY: No masses. LARYNX/CORDS: No abnormal findings. VASCULAR STRUCTURES: The major vessels are patent. Mild scattered vascular calcifications. BONES: Intact. THYROID: Normal size. No masses. PARANASAL SINUSES: Mild mucoperiosteal thickening of the right maxillary sinus. Remainder of the par anasal sinuses are clear. OTHER: No other significant finding. CHEST: AXILLAE: Unable to evaluate the left axilla due to artifact from dense contrast within the vessels of the left axilla. No right axillary adenopathy. CHEST WALL: No masses. No subcutaneous air. LUNGS: Peripheral ground-glass opacities, left greater than right. 1.5 x 2.2 cm mass like opacity of the peripheral left lower lobe. Atelectasis in the left upper lobe and right middle lobe. No addit ional focal consolidation. No pleural effusion or pneumothorax. THYROID: No masses or significant asymmetry. HILAR AND MEDIASTINAL STRUCTURES: Right peritracheal lymph node measuring 1.0 cm in short axis diamet er. Few additional prominent mediastinal lymph nodes. Right anterior juxta diaphragmatic/pericardia l conglomerate of lymph nodes measuring 2.4 x 4.1 cm. Soft tissue prominence within the posterior me diastinum just below the maria t, likely representing a tortuous, collapsed esophagus. No hilar adeno dev AORTA AND GREAT VESSELS: No aneurysm. No dissection. PULMONARY ARTERIES: No identified pulmonary emboli. Study not optimized for the pulmonary arteries. HEART: No pericardial effusion. HARDWARE AND LIFELINES: None. BONES: No significant finding. OTHER: No other significant finding. ABDOMEN/PELVIS: LIVER: Enlarged, heterogenous with a nodular contour. No discrete solid or cystic hepatic mass. SPLEEN: Enlarged with multiple hypoattenuating round masses. PANCREAS: No masses. No significant calcifications. No adjacent inflammation or peripancreatic flui d collections. Pancreatic duct not dilated. GALLBLADDER: Collapsed. ADRENAL GLANDS: No significant masses or asymmetry. RIGHT KIDNEY AND URETER: No solid masses. Unchanged nonobstructing 3 mm stone in the proximal right ureter. No hydronephrosis or hydroureter. LEFT KIDNEY AND URETER: No solid masses. No significant calcifications. No hydronephrosis or hydr oureter. AORTA AND VESSELS: No aneurysm. Mild scattered calcified noncalcified plaque. No dissection. Renal arteries, SMA, celiac without stenosis. RETROPERITONEUM: Multiple retroperitoneal lymph nodes. Large retroperitoneal lymph node located ante rior to the IVC and just lateral to the pancreatic head measuring 6.0 x 4.6 cm. LARGE AND SMALL BOWEL: No dilated loops of bowel. APPENDIX: Not visualized. ABDOMINAL WALL: No hernia or masses. PERITONEAL CAVITY: No free air. Trace pelvic free fluid. Multiple intraperitoneal lymph nodes of th e superior abdomen. Reference lymph node measures 1.2 x 1.2 cm located just anterior to the anterior ,inferior stomach wall. PELVIS: No mass or free fluid. Normal bladder. Prostate calcifications. BONES: Peripherally sclerotic lucent lesion of the intertrochanteric region of the left femur, unchan ged. No additional bone lesions. OTHER: No other significant finding. IMPRESSION: 1. Supraclavicular and mediastinal adenopathy. 2. Peripheral bilateral ground-glass opacities of the chest with a small masslike consolidation of th e left lower lobe. Findings may be due to underlying infectious or inflammatory etiology. However, metastatic disease is not excluded given the additional findings. 3. Previously questioned retroperitoneal mass between IVC and pancreas represents a large lymph node. Multiple splenic masses. Additional findings of the abdomen/pelvis are unchanged when compared to CT of 11/09/2017 TECHNICAL DOCUMENTATION: JOB ID: [id number] Quality ID # [id number]: Final reports with documentation of one or more dose reduction techniques (e.g., Au tomated exposure control, adjustment of the mA and/or kV according to patient size, use of iterative reconstruction technique) 2010 [employer]- All Rights Reserved RADIATION DOSE: CT Rad equipment meets quality standard of care and radiation dose reduction techniq ues were employed. CTDIvol: 17.1 - 26.1 mGy. DLP: 4646 mGy-cm. . LIMITATIONS: None. FINDINGS: See above IMPRESSION: See above ABDOMEN AND PELVIS See above CONTRAST TYPE AND DOSE: contrast/concentration: Isovue 350.00 mg/ml; Total Contrast Delivered: 100.0 ml; Total Saline Delivered: 72.0 ml 100 mL of Omnipaque 350- low osmolar. Reading location - IP/workstation name: [email or web address]
[2017-11-10] MEDS: SIMVASTATIN 40 MG TABLET PO SCH (21:50)
[2017-11-11] MEDS: LANSOPRAZOLE 30 MG TAB.RAP.DR PO SCH (05:42)
[2017-11-11] MEDS: NORMAL SALINE 1000 ML 1,000 ML IV PRN ×3 (05:42→21:39)
[2017-11-11 05:43] LABS: ABSOLUTE EOSINOPHILS # (AUTO) 0.1 10^3/uL (0.0-0.6); ABSOLUTE LYMPHOCYTES (AUTO) 0.8 10^3/uL (0.5-4.7); ABSOLUTE MONOCYTES (AUTO) 0.7 10^3/uL (0.1-1.4); BASOPHILS % (AUTO) 0.5 % (0-2); EOSINOPHILS % (AUTO) 3.7 % (0-6); HEMOGLOBIN 12.6 g/dL (13.5-17.0); MEAN CORPUSCULAR HEMOGLOBIN 28.4 pg (27.0-33.4); MEAN CORPUSCULAR HGB CONC 33.9 g/dL (32.0-36.0); MEAN CORPUSCULAR VOLUME 84 fl (80-97); MONOCYTES % (AUTO) 19.6 % (3-13); PLATELET COUNT 169 10^3/uL (150-450); RED BLOOD COUNT 4.43 10^6/uL (4.35-5.55); RED CELL DISTRIBUTION WIDTH 15.1 % (11.5-14.0); SEGMENTED NEUTROPHILS % (AUTO) 55.2 % (42-78); TOTAL CELLS COUNTED % (AUTO) 100 %; WHITE BLOOD COUNT 3.7 10^3/uL (4.0-10.5)
[2017-11-11 06:06] LABS: ANION GAP 10 (5-19); BLOOD UREA NITROGEN 13 mg/dL (7-20); CALCIUM 8.6 mg/dL (8.4-10.2); CARBON DIOXIDE 22 mmol/L (22-30); CHLORIDE 107 mmol/L (98-107); GLUCOSE 92 mg/dL (75-110); POTASSIUM 3.8 mmol/L (3.6-5.0); SODIUM 138.7 mmol/L (137-145)
--- NOTE | 2017-11-11 08:29 | PDOC PROGRESS REPORT ---
Subjective Progress Note for:: 11/11/17 Subjective:: Reviewed CT N/C/A/P, b/l supraclav, mediastinal and retroper LN, retroper are largest and most pathologic in appearance, d/w Gen Surg, Dr Montemayor who will see pt today. I Made pt NPO now Reason For Visit: GROSS HEMATURIA,ACUTE KIDNEY INJURY,INTRAPERITONEA Physical Exam Vital Signs: Temp Pulse Resp BP Pulse Ox 99.1 F 64 16 128/77 H 96 11/11/17 03:48 11/11/17 07:00 11/11/17 03:48 11/11/17 03:48 11/11/17 03:48 Intake & Output 11/10/17 11/11/17 11/12/17 06:59 06:59 06:59 Intake Total 1999 4505 Output Total 1725 Balance 1999 2780 Weight 95.9 kg 95.5 kg General appearance: PRESENT: no acute distress, well-developed, well-nourished Head exam: PRESENT: atraumatic, normocephalic Eye exam: PRESENT: conjunctiva pink, EOMI, PERRLA. ABSENT: scleral icterus Ear exam: PRESENT: normal external ear exam Mouth exam: PRESENT: moist, tongue midline Neck exam: ABSENT: carotid bruit, JVD, lymphadenopathy, thyromegaly Respiratory exam: PRESENT: clear to auscultation cecilio. ABSENT: rales, rhonchi, wheezes Cardiovascular exam: PRESENT: RRR. ABSENT: diastolic murmur, rubs, systolic murmur Pulses: PRESENT: normal dorsalis pedis pul Vascular exam: PRESENT: normal capillary refill GI/Abdominal exam: PRESENT: normal bowel sounds, soft. ABSENT: distended, guarding, mass, organolmegaly, rebound, tenderness Rectal exam: PRESENT: deferred Extremities exam: PRESENT: full ROM. ABSENT: calf tenderness, clubbing, pedal edema Neurological exam: PRESENT: alert, awake, oriented to person, oriented to place , oriented to time, oriented to situation, CN II-XII grossly intact. ABSENT: motor sensory deficit Psychiatric exam: PRESENT: appropriate affect, normal mood. ABSENT: homicidal ideation, suicidal ideation Skin exam: PRESENT: dry, intact, warm. ABSENT: cyanosis, rash Results Laboratory Results: 11/11/17 05:03 11/11/17 05:03 11/11/17 11/11/17 05:03 05:03 WBC 3.7 L RBC 4.43 Hgb 12.6 L Hct 37.0 L MCV 84 MCH 28.4 MCHC 33.9 RDW 15.1 H Plt Count 169 Seg Neutrophils % 55.2 Lymphocytes % 21.0 Monocytes % 19.6 H Eosinophils % 3.7 Basophils % 0.5 Absolute Neutrophils 2.0 Absolute Lymphocytes 0.8 Absolute Monocytes 0.7 Absolute Eosinophils 0.1 Absolute Basophils 0.0 Sodium 138.7 Potassium 3.8 Chloride 107 Carbon Dioxide 22 Anion Gap 10 BUN 13 Creatinine 1.35 H Est GFR ( Amer) > 60 Est GFR (Non-Af Amer) > 60 Glucose 92 Calcium 8.6 Impressions: Limited or Localized CT 11/09/17 14:16 IMPRESSION: 1. Non obstructing 3 mm stone in the proximal right ureter without associated hydronephrosis or hydroureter. 2. Intraperitoneal and retroperitoneal adenopath. Findings are concerning for metastatic disease or lymphoma. 3. Questionable retroperitoneal mass/lymph node just lateral to the pancreatic head and anterior to the IVC. Findings may also represent the caudate lobe of the liver. Contrast-enhanced imaging would be of benefit. 4. Splenomegaly. 5. Hepatomegaly with slightly nodular contour, suggestive of hepatic cirrhosis. 6. Trace pelvic ascites. Abdomen/Pelvis CT 11/10/17 00:00 IMPRESSION: 1. Supraclavicular and mediastinal adenopathy. 2. Peripheral bilateral ground-glass opacities of the chest with a small masslike consolidation of the left lower lobe. Findings may be due to underlying infectious or inflammatory etiology. However, metastatic disease is not excluded given the additional findings. 3. Previously questioned retroperitoneal mass between IVC and pancreas represents a large lymph node. Multiple splenic masses. Additional findings of the abdomen/pelvis are unchanged when compared to CT of 11/09/2017 IMPRESSION: See above Chest CT 11/10/17 00:00 IMPRESSION: 1. Supraclavicular and mediastinal adenopathy. 2. Peripheral bilateral ground-glass opacities of the chest with a small masslike consolidation of the left lower lobe. Findings may be due to underlying infectious or inflammatory etiology. However, metastatic disease is not excluded given the additional findings. 3. Previously questioned retroperitoneal mass between IVC and pancreas represents a large lymph node. Multiple splenic masses. Additional findings of the abdomen/pelvis are unchanged when compared to CT of 11/09/2017 IMPRESSION: See above Soft Tissue Neck CT 11/10/17 00:00 IMPRESSION: 1. Supraclavicular and mediastinal adenopathy. 2. Peripheral bilateral ground-glass opacities of the chest with a small masslike consolidation of the left lower lobe. Findings may be due to underlying infectious or inflammatory etiology. However, metastatic disease is not excluded given the additional findings. 3. Previously questioned retroperitoneal mass between IVC and pancreas represents a large lymph node. Multiple splenic masses. Additional findings of the abdomen/pelvis are unchanged when compared to CT of 11/09/2017 IMPRESSION: See above Assessment & Plan - Diagnosis (1) Intra and retroperitoneal adenopathy Is this a current diagnosis for this admission?: Yes Plan: Will need bx. - Time Time Spent with patient: 35 or more minutes
--- NOTE | 2017-11-11 10:45 | PDOC CONSULTATION ---
Consultation Consult Date: 11/11/17 Attending physician:: GEORGI CAMPOS Consult reason:: Biopsy lymph node History of Present Illness Admission Date/PCP: 11/09/17 17:25 History of Present Illness: AARON ARIZMENDI is a 32 year old male Patient is a 32-year-old male, previously healthy, with a several month history of anorexia, weight loss possibly up to 80 pounds, decreased energy. The patient was admitted to [facility] with acute renal insufficiency and hematuria. These symptoms have improved with hydration. He was worked up and found to have diffuse adenopathy, specifically right upper diaphragmatic lymph node, and a mass at the confluence of the head of the pancreas and the inferior vena cava. There was diffuse adenopathy, small, along the periaortic region. It is being evaluated for systemic viral infection ; he is not immunosuppressed. Surgery was consulted for lymph node biopsy Past Medical History Past Medical History: History of ventricular tachycardia status post cardioversion; local blocker and sewer is Dr. Martinez Cardiac Medical History: Reports: Hyperlipidema, Hypertension, Other - Fast irregular heartbeat that he has needed heart ablations 2, PVCs Pulmonary Medical History: Reports: None EENT Medical History: Reports: None Neurological Medical History: Reports: None Endocrine Medical History: Reports: None Renal/ Medical History: Reports: None Malignancy Medical History: Reports: None GI Medical History: Reports: None Musculoskeltal Medical History: Reports: None Skin Medical History: Reports: None Psychiatric Medical History: Reports: None Denies: Depression Traumatic Medical History: Reports: None Infectious Medical History: Reports: None Past Surgical History Past Surgical History: Reports: Cardiac Catheterization - Cardiac ablation 2, Other - Ablation Social History Lives with: Spouse/Significant other Smoking Status: Current Every Day Smoker Cigarettes Packs Per Day: 0.5 Frequency of Alcohol Use: None - He quit alcohol use about 1 year ago, previously was drinking 6-8 beers per day Hx Recreational Drug Use: No Drugs: None Hx Prescription Drug Abuse: No - Advance Directive Resuscitation Status: Full Code Family History Family History: Reviewed & Not Pertinent Parental Family History Reviewed: Yes Children Family History Reviewed: Yes Sibling(s) Family History Reviewed.: Yes Medication/Allergy Home Medications: Flecainide Acetate [Tambocor 100 mg Tablet] 100 mg PO Q12 11/10/17 Magnesium Oxide [Mag-Ox 400 mg Tablet] 400 mg PO Q8 11/10/17 Metoprolol Tartrate [Lopressor 25 mg Tablet] 25 mg PO Q12 11/10/17 Simvastatin [Zocor 20 mg Tablet] 20 mg PO QHS 11/10/17 Allergies/Adverse Reactions: sulfamethoxazole [From Bactrim] Allergy (Verified 11/09/17 12:49) trimethoprim [From Bactrim] Allergy (Verified 11/09/17 12:49) Review of Systems Constitutional: PRESENT: as per HPI Ears: ABSENT: hearing changes Cardiovascular: ABSENT: chest pain, dyspnea on exertion, edema, orthropnea, palpitations Gastrointestinal: ABSENT: abdominal pain, constipation, diarrhea, hematemesis, hematochezia, nausea, vomiting Genitourinary: PRESENT: as per HPI Neurological: ABSENT: abnormal gait, abnormal speech, confusion, dizziness, focal weakness, syncope Physical Exam Vital Signs: Temp Pulse Resp BP Pulse Ox 99.1 F 64 16 128/77 H 96 11/11/17 03:48 11/11/17 07:00 11/11/17 03:48 11/11/17 03:48 11/11/17 03:48 Intake & Output 11/10/17 11/11/17 11/12/17 06:59 06:59 06:59 Intake Total 1999 4505 Output Total 1725 Balance 1999 2780 Weight 95.9 kg 95.5 kg General appearance: PRESENT: no acute distress Head exam: PRESENT: normocephalic Eye exam: PRESENT: EOMI Mouth exam: PRESENT: dry mucosa Neck exam: PRESENT: full ROM, other - Small pea-sized lymph node left posterior cervical region, compartment 5, mobile; Respiratory exam: PRESENT: clear to auscultation cecilio Cardiovascular exam: PRESENT: RRR Pulses: PRESENT: normal carotid pulses, normal radial pulses, normal dorsalis pedis pul GI/Abdominal exam: PRESENT: soft Rectal exam: PRESENT: deferred Gentrourinary exam: PRESENT: other - Unable to appreciate any groin hernias Extremities exam: PRESENT: full ROM Musculoskeletal exam: PRESENT: full ROM Neurological exam: PRESENT: alert, awake, oriented to person, oriented to place , oriented to time, oriented to situation Psychiatric exam: PRESENT: appropriate affect Results Laboratory Results: 11/11/17 05:03 11/11/17 05:03 11/11/17 11/11/17 05:03 05:03 WBC 3.7 L RBC 4.43 Hgb 12.6 L Hct 37.0 L MCV 84 MCH 28.4 MCHC 33.9 RDW 15.1 H Plt Count 169 Seg Neutrophils % 55.2 Lymphocytes % 21.0 Monocytes % 19.6 H Eosinophils % 3.7 Basophils % 0.5 Absolute Neutrophils 2.0 Absolute Lymphocytes 0.8 Absolute Monocytes 0.7 Absolute Eosinophils 0.1 Absolute Basophils 0.0 Sodium 138.7 Potassium 3.8 Chloride 107 Carbon Dioxide 22 Anion Gap 10 BUN 13 Creatinine 1.35 H Est GFR ( Amer) > 60 Est GFR (Non-Af Amer) > 60 Glucose 92 Calcium 8.6 Impressions: Limited or Localized CT 11/09/17 14:16 IMPRESSION: 1. Non obstructing 3 mm stone in the proximal right ureter without associated hydronephrosis or hydroureter. 2. Intraperitoneal and retroperitoneal adenopath. Findings are concerning for metastatic disease or lymphoma. 3. Questionable retroperitoneal mass/lymph node just lateral to the pancreatic head and anterior to the IVC. Findings may also represent the caudate lobe of the liver. Contrast-enhanced imaging would be of benefit. 4. Splenomegaly. 5. Hepatomegaly with slightly nodular contour, suggestive of hepatic cirrhosis. 6. Trace pelvic ascites. Abdomen/Pelvis CT 11/10/17 00:00 IMPRESSION: 1. Supraclavicular and mediastinal adenopathy. 2. Peripheral bilateral ground-glass opacities of the chest with a small masslike consolidation of the left lower lobe. Findings may be due to underlying infectious or inflammatory etiology. However, metastatic disease is not excluded given the additional findings. 3. Previously questioned retroperitoneal mass between IVC and pancreas represents a large lymph node. Multiple splenic masses. Additional findings of the abdomen/pelvis are unchanged when compared to CT of 11/09/2017 IMPRESSION: See above Chest CT 11/10/17 00:00 IMPRESSION: 1. Supraclavicular and mediastinal adenopathy. 2. Peripheral bilateral ground-glass opacities of the chest with a small masslike consolidation of the left lower lobe. Findings may be due to underlying infectious or inflammatory etiology. However, metastatic disease is not excluded given the additional findings. 3. Previously questioned retroperitoneal mass between IVC and pancreas represents a large lymph node. Multiple splenic masses. Additional findings of the abdomen/pelvis are unchanged when compared to CT of 11/09/2017 IMPRESSION: See above Soft Tissue Neck CT 11/10/17 00:00 IMPRESSION: 1. Supraclavicular and mediastinal adenopathy. 2. Peripheral bilateral ground-glass opacities of the chest with a small masslike consolidation of the left lower lobe. Findings may be due to underlying infectious or inflammatory etiology. However, metastatic disease is not excluded given the additional findings. 3. Previously questioned retroperitoneal mass between IVC and pancreas represents a large lymph node. Multiple splenic masses. Additional findings of the abdomen/pelvis are unchanged when compared to CT of 11/09/2017 IMPRESSION: See above Assessment & Plan - Diagnosis (1) Intra and retroperitoneal adenopathy Is this a current diagnosis for this admission?: Yes Plan: New onset intra-abdominal retroperitoneal adenopathy with scarcity of peripheral adenopathy; 6 cm pericaval node versus mass of uncertain etiology; also has suspicious mass anterior mediastinum abutting the right hemidiaphragm; I do not believe the left neck compartment 5 lymph node is pathologic; therefore no accessible peripheral lymph nodes suitable for excisional biopsy. I reviewed the imaging studies independently, and with Dr. Chase, radiologist , and discussed the above with Dr. Campos. The fco-caval mass may require additional imaging and/or evaluation for diagnosis; Recommendations: 1. Dr. Chase has offered to biopsy periaortic lymph node for diagnostic purposes. 2. If this fails to yield a tissue diagnosis, the pericaval mass should be considered for biopsy; this may require additional imaging or even endoscopic ultrasound. May require transfer to tertiary care institution for more sophisticated biopsy technology (2) Acute kidney injury Is this a current diagnosis for this admission?: Yes (3) Compensated cirrhosis of the liver Is this a current diagnosis for this admission?: Yes (4) Ventricular tachycardia Is this a current diagnosis for this admission?: Yes (5) Tobacco dependency Is this a current diagnosis for this admission?: Yes - Time Time Spent: 50 to 70 Minutes Smoking Cessation Education: over 10 minutes Medications reviewed and adjusted accordingly: Yes Anticipated discharge: Home - Inpatient Certification Based on my medical assessment, after consideration of the patient's comorbidities, presenting symptoms, or acuity I expect that the services needed warrant INPATIENT care.: Yes I certify that my determination is in accordance with my understanding of Medicare's requirements for reasonable and necessary INPATIENT services [42 CFR 412.3e].: Yes
[2017-11-11] MEDS: METOPROLOL TARTRATE 25 MG TABLET PO SCH ×2 (12:05→21:36)
[2017-11-11] MEDS: MAGNESIUM OXIDE 400 MG TABLET PO SCH ×3 (12:05→18:01)
[2017-11-11] MEDS: FLECAINIDE ACETATE 100 MG TABLET PO SCH ×2 (12:05→21:40)
--- NOTE | 2017-11-11 14:30 | PDOC PROGRESS REPORT ---
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 He CT scan of the abdomen revealed 0.3 mm right distal ureteral stone without obstruction. Incidentally CT of the abdomen also showed intra- abdominal and retroperitoneal lymphadenopathy worrisome for metastatic disease. His blood workup also revealed acute kidney injury with creatinine of 1.7 and after aggressive hydration his creatinine trended down to 1.3. CT scan of the abdomen and pelvis with contrast reported as follows: Supraclavicular and mediastinal adenopathy previously seen retroperitoneal mass between IVC and pancreas present enlarged lymph node. Multiple splenic masses. Dr. Campos is on board. Patient scheduled for biopsy by interventional radiologist Dr. Eze Viramontes. Reason For Visit: GROSS HEMATURIA,ACUTE KIDNEY INJURY,INTRAPERITONEA Physical Exam Vital Signs: Temp Pulse Resp BP Pulse Ox 99.1 F 64 16 128/77 H 96 11/11/17 03:48 11/11/17 07:00 11/11/17 03:48 11/11/17 03:48 11/11/17 03:48 Intake & Output 11/10/17 11/11/17 11/12/17 06:59 06:59 06:59 Intake Total 1999 4505 1000 Output Total 1725 Balance 1999 2780 1000 Weight 95.9 kg 95.5 kg General appearance: PRESENT: no acute distress, well-developed, well-nourished Head exam: PRESENT: atraumatic, normocephalic Eye exam: PRESENT: conjunctiva pink, EOMI, PERRLA. ABSENT: scleral icterus Ear exam: PRESENT: normal external ear exam Mouth exam: PRESENT: moist, tongue midline Neck exam: ABSENT: carotid bruit, JVD, lymphadenopathy, thyromegaly Respiratory exam: PRESENT: clear to auscultation cecilio. ABSENT: rales, rhonchi, wheezes Cardiovascular exam: PRESENT: RRR. ABSENT: diastolic murmur, rubs, systolic murmur Pulses: PRESENT: normal dorsalis pedis pul Vascular exam: PRESENT: normal capillary refill GI/Abdominal exam: PRESENT: normal bowel sounds, soft. ABSENT: distended, guarding, mass, organolmegaly, rebound, tenderness Rectal exam: PRESENT: deferred Extremities exam: PRESENT: full ROM. ABSENT: calf tenderness, clubbing, pedal edema Neurological exam: PRESENT: alert, awake, oriented to person, oriented to place , oriented to time, oriented to situation, CN II-XII grossly intact. ABSENT: motor sensory deficit Psychiatric exam: PRESENT: appropriate affect, normal mood. ABSENT: homicidal ideation, suicidal ideation Skin exam: PRESENT: dry, intact, warm. ABSENT: cyanosis, rash Results Laboratory Results: 11/11/17 05:03 11/11/17 05:03 11/11/17 11/11/17 05:03 05:03 WBC 3.7 L RBC 4.43 Hgb 12.6 L Hct 37.0 L MCV 84 MCH 28.4 MCHC 33.9 RDW 15.1 H Plt Count 169 Seg Neutrophils % 55.2 Lymphocytes % 21.0 Monocytes % 19.6 H Eosinophils % 3.7 Basophils % 0.5 Absolute Neutrophils 2.0 Absolute Lymphocytes 0.8 Absolute Monocytes 0.7 Absolute Eosinophils 0.1 Absolute Basophils 0.0 Sodium 138.7 Potassium 3.8 Chloride 107 Carbon Dioxide 22 Anion Gap 10 BUN 13 Creatinine 1.35 H Est GFR ( Amer) > 60 Est GFR (Non-Af Amer) > 60 Glucose 92 Calcium 8.6 Impressions: Limited or Localized CT 11/09/17 14:16 IMPRESSION: 1. Non obstructing 3 mm stone in the proximal right ureter without associated hydronephrosis or hydroureter. 2. Intraperitoneal and retroperitoneal adenopath. Findings are concerning for metastatic disease or lymphoma. 3. Questionable retroperitoneal mass/lymph node just lateral to the pancreatic head and anterior to the IVC. Findings may also represent the caudate lobe of the liver. Contrast-enhanced imaging would be of benefit. 4. Splenomegaly. 5. Hepatomegaly with slightly nodular contour, suggestive of hepatic cirrhosis. 6. Trace pelvic ascites. Abdomen/Pelvis CT 11/10/17 00:00 IMPRESSION: 1. Supraclavicular and mediastinal adenopathy. 2. Peripheral bilateral ground-glass opacities of the chest with a small masslike consolidation of the left lower lobe. Findings may be due to underlying infectious or inflammatory etiology. However, metastatic disease is not excluded given the additional findings. 3. Previously questioned retroperitoneal mass between IVC and pancreas represents a large lymph node. Multiple splenic masses. Additional findings of the abdomen/pelvis are unchanged when compared to CT of 11/09/2017 IMPRESSION: See above Chest CT 11/10/17 00:00 IMPRESSION: 1. Supraclavicular and mediastinal adenopathy. 2. Peripheral bilateral ground-glass opacities of the chest with a small masslike consolidation of the left lower lobe. Findings may be due to underlying infectious or inflammatory etiology. However, metastatic disease is not excluded given the additional findings. 3. Previously questioned retroperitoneal mass between IVC and pancreas represents a large lymph node. Multiple splenic masses. Additional findings of the abdomen/pelvis are unchanged when compared to CT of 11/09/2017 IMPRESSION: See above Soft Tissue Neck CT 11/10/17 00:00 IMPRESSION: 1. Supraclavicular and mediastinal adenopathy. 2. Peripheral bilateral ground-glass opacities of the chest with a small masslike consolidation of the left lower lobe. Findings may be due to underlying infectious or inflammatory etiology. However, metastatic disease is not excluded given the additional findings. 3. Previously questioned retroperitoneal mass between IVC and pancreas represents a large lymph node. Multiple splenic masses. Additional findings of the abdomen/pelvis are unchanged when compared to CT of 11/09/2017 IMPRESSION: See above Assessment & Plan - Diagnosis (1) Gross hematuria Is this a current diagnosis for this admission?: Yes Plan: Due to #2 (2) Calculus of proximal right ureter Is this a current diagnosis for this admission?: Yes Plan: Hydration and Flomax (3) Acute kidney injury Is this a current diagnosis for this admission?: Yes Plan: Aggressive hydration (4) Intra and retroperitoneal adenopathy Is this a current diagnosis for this admission?: Yes Plan: Patient scheduled to have CT abdomen and pelvis with contrast since his creatinine is trending down. (5) Compensated cirrhosis of the liver Is this a current diagnosis for this admission?: Yes Plan: Alcohol induced. Currently patient is sober (6) Hypertension Qualifiers: Hypertension type: essential hypertension Qualified Code(s): I10 - Essential (primary) hypertension Is this a current diagnosis for this admission?: Yes Plan: Continue home medication (7) Hyperlipidemia Qualifiers: Hyperlipidemia type: unspecified Qualified Code(s): E78.5 - Hyperlipidemia , unspecified Is this a current diagnosis for this admission?: Yes Plan: Continue home medication
[2017-11-11] MEDS: SIMVASTATIN 40 MG TABLET PO SCH (21:36)
[2017-11-12 04:13] LABS: ABSOLUTE EOSINOPHILS # (AUTO) 0.1 10^3/uL (0.0-0.6); ABSOLUTE LYMPHOCYTES (AUTO) 0.8 10^3/uL (0.5-4.7); ABSOLUTE MONOCYTES (AUTO) 0.7 10^3/uL (0.1-1.4); ABSOLUTE NEUT (AUTO) 1.9 10^3/uL (1.7-8.2); BASOPHILS % (AUTO) 0.9 % (0-2); EOSINOPHILS % (AUTO) 3.3 % (0-6); HEMATOCRIT 37.5 % (37.9-51.0); HEMOGLOBIN 12.6 g/dL (13.5-17.0); LYMPHOCYTES % (AUTO) 23.4 % (13-45); MEAN CORPUSCULAR HEMOGLOBIN 28.2 pg (27.0-33.4); MEAN CORPUSCULAR HGB CONC 33.7 g/dL (32.0-36.0); MEAN CORPUSCULAR VOLUME 84 fl (80-97); MONOCYTES % (AUTO) 18.8 % (3-13); PLATELET COUNT 150 10^3/uL (150-450); RED BLOOD COUNT 4.48 10^6/uL (4.35-5.55); RED CELL DISTRIBUTION WIDTH 15.2 % (11.5-14.0); SEGMENTED NEUTROPHILS % (AUTO) 53.6 % (42-78); TOTAL CELLS COUNTED % (AUTO) 100 %; WHITE BLOOD COUNT 3.6 10^3/uL (4.0-10.5)
[2017-11-12 04:37] LABS: ANION GAP 9 (5-19); BLOOD UREA NITROGEN 14 mg/dL (7-20); CALCIUM 8.7 mg/dL (8.4-10.2); CARBON DIOXIDE 22 mmol/L (22-30); CHLORIDE 107 mmol/L (98-107); GLUCOSE 90 mg/dL (75-110); SODIUM 137.6 mmol/L (137-145)
[2017-11-12] MEDS: LANSOPRAZOLE 30 MG TAB.RAP.DR PO SCH (05:29)
[2017-11-12] MEDS: NORMAL SALINE 1000 ML 1,000 ML IV PRN ×3 (05:47→23:40)
[2017-11-12] MEDS: FLECAINIDE ACETATE 100 MG TABLET PO SCH ×2 (09:39→21:34)
[2017-11-12] MEDS: MAGNESIUM OXIDE 400 MG TABLET PO SCH ×3 (09:39→19:06)
[2017-11-12] MEDS: METOPROLOL TARTRATE 25 MG TABLET PO SCH ×2 (09:40→21:33)
[2017-11-12 10:38] LABS: HEPATITIS A AB IGM Negative (Negative); HEPATITIS B CORE AB IGM Negative (Negative); HEPATITS B SURFACE ANTIGEN Negative (Negative)
[2017-11-12] MEDS ORDERED: MIDAZOLAM 2 MG/2 ML INJ ONE (11:24)
[2017-11-12] MEDS ORDERED: LIDOCAINE 1% INJ-PF (10 MG/ML) 30 ML SDV ONE (11:24)
[2017-11-12] MEDS ORDERED: FENTANYL CITRATE INJ/PF 250 MCG/5 ML AMPULE ONE (11:24)
--- NOTE | 2017-11-12 12:47 | RADIOLOGY REPORT (SQ) ---
EXAM DESCRIPTION: CT BIOPSY ABD/RETROPERIT MASS; CT NEEDLE PLACEMENT COMPLETED DATE/TIME: 11/12/2017 12:19 pm; 11/12/2017 12:16 pm REASON FOR STUDY: obtain tissue dx of retroperitoneal mass; LYMPHNODE BIOPSY COMPARISON: None. TECHNIQUE: CT guided biopsy of the left retroperitoneal enlarged lymph node performed with conscious sedation. CT Fluoroscopy Time: [address] scanners at this facility use dose modulation, iterative reconstruction, and/or weight based d osing when appropriate to reduce radiation dose to as low as reasonably achievable (ALARA). [facility]: Dose Right [facility]: CareDose [facility]: Dose Right [facility]: Teradose 4D [facility]: [employer] RADIATION DOSE: mGy. FINDINGS: After obtaining informed consent and explaining the risks and benefits of conscious sedati on,the patient agreed to the procedure. Prior to the procedure, a time out was performed to verify th e patient's identity and planned procedure. IV sedation was administered and physician direction by the registered nurse using 2 milligrams of Ve rsed and 100 micrograms of fentanyl, for conscious sedation. Physiologic monitoring was provided befo re, during, and after sedation. The total sedation time was 38 minutes. Documentation face to face time, the performing proceduralist, spent monitoring the patient: [address] scanning was performed to localize the percutaneous site for the biopsy approach. After sterile skin prep and local lidocaine for skin and deep tissue anesthesia, a coaxial biopsy nee dle was used to obtain multiple cores of tissue. Lilia from cytology was present, reviewed touch pre p of the material obtained. The biopsy tissue was submitted to the lab in formalin. There were no immediate complications. Pathology is pending at the time of dictation. IMPRESSION: CT GUIDED BIOPSY OF THE LEFT RETROPERITONEAL ENLARGED LYMPH NODES PERFORMED WITHOUT IMME DIATE COMPLICATION. PATHOLOGY PENDING. IV CONSCIOUS SEDATION COMMENT: Quality ID 145: Final reports for procedures using fluoroscopy that document radiation exp osure indices, or exposure time and number of fluorographic images (if radiation exposure indices are not available) Patient medication list reviewed: Yes- Quality ID# [id number]:Eligible professional attests to documenting i n the medical record they obtained, updated, or reviewed the patient's current medications.. TECHNICAL DOCUMENTATION: JOB ID: [id number] Quality ID# [id number]: Final reports with documentation of one or more dose reduction techniques (e.g., Aut omated exposure control, adjustment of the mA and/or kV according to patient size, use of iterative r econstruction technique) 2010 [employer]- All Rights Reserved Reading location - IP/workstation name: MANAGER [employer]ODUCT-[email or web address]
--- NOTE | 2017-11-12 12:47 | RADIOLOGY REPORT (SQ) ---
EXAM DESCRIPTION: CT BIOPSY ABD/RETROPERIT MASS; CT NEEDLE PLACEMENT COMPLETED DATE/TIME: 11/12/2017 12:19 pm; 11/12/2017 12:16 pm REASON FOR STUDY: obtain tissue dx of retroperitoneal mass; LYMPHNODE BIOPSY COMPARISON: None. TECHNIQUE: CT guided biopsy of the left retroperitoneal enlarged lymph node performed with conscious sedation. CT Fluoroscopy Time: [address] scanners at this facility use dose modulation, iterative reconstruction, and/or weight based d osing when appropriate to reduce radiation dose to as low as reasonably achievable (ALARA). [facility]: Dose Right [facility]: CareDose [facility]: Dose Right [facility]: Teradose 4D [facility]: [employer] RADIATION DOSE: mGy. FINDINGS: After obtaining informed consent and explaining the risks and benefits of conscious sedati on,the patient agreed to the procedure. Prior to the procedure, a time out was performed to verify th e patient's identity and planned procedure. IV sedation was administered and physician direction by the registered nurse using 2 milligrams of Ve rsed and 100 micrograms of fentanyl, for conscious sedation. Physiologic monitoring was provided befo re, during, and after sedation. The total sedation time was 38 minutes. Documentation face to face time, the performing proceduralist, spent monitoring the patient: [address] scanning was performed to localize the percutaneous site for the biopsy approach. After sterile skin prep and local lidocaine for skin and deep tissue anesthesia, a coaxial biopsy nee dle was used to obtain multiple cores of tissue. Lilia from cytology was present, reviewed touch pre p of the material obtained. The biopsy tissue was submitted to the lab in formalin. There were no immediate complications. Pathology is pending at the time of dictation. IMPRESSION: CT GUIDED BIOPSY OF THE LEFT RETROPERITONEAL ENLARGED LYMPH NODES PERFORMED WITHOUT IMME DIATE COMPLICATION. PATHOLOGY PENDING. IV CONSCIOUS SEDATION COMMENT: Quality ID 145: Final reports for procedures using fluoroscopy that document radiation exp osure indices, or exposure time and number of fluorographic images (if radiation exposure indices are not available) Patient medication list reviewed: Yes- Quality ID# [id number]:Eligible professional attests to documenting i n the medical record they obtained, updated, or reviewed the patient's current medications.. TECHNICAL DOCUMENTATION: JOB ID: [id number] Quality ID# [id number]: Final reports with documentation of one or more dose reduction techniques (e.g., Aut omated exposure control, adjustment of the mA and/or kV according to patient size, use of iterative r econstruction technique) 2010 [employer]- All Rights Reserved Reading location - IP/workstation name: [employer] O[employer]ATOR-[email or web address]
[2017-11-12 14:58] LABS: HEPATITIS C VIRUS ANTIBODY <0.1 s/co ratio (0.0-0.9)
--- NOTE | 2017-11-12 17:15 | PDOC PROGRESS REPORT ---
Subjective Progress Note for:: 11/12/17 Subjective:: Pt going for bx today, no new c/o Reason For Visit: GROSS HEMATURIA,ACUTE KIDNEY INJURY,INTRAPERITONEA Physical Exam Vital Signs: Temp Pulse Resp BP Pulse Ox 97.4 F 61 12 141/91 H 99 11/12/17 16:00 11/12/17 16:00 11/12/17 16:00 11/12/17 16:00 11/12/17 16:00 Intake & Output 11/11/17 11/12/17 11/13/17 06:59 06:59 06:59 Intake Total 4505 3657 1000 Output Total 1725 1800 Balance 2780 1857 1000 Weight 95.5 kg 101.1 kg General appearance: PRESENT: no acute distress, well-developed, well-nourished Head exam: PRESENT: atraumatic, normocephalic Eye exam: PRESENT: conjunctiva pink, EOMI, PERRLA. ABSENT: scleral icterus Ear exam: PRESENT: normal external ear exam Mouth exam: PRESENT: moist, tongue midline Neck exam: ABSENT: carotid bruit, JVD, lymphadenopathy, thyromegaly Respiratory exam: PRESENT: clear to auscultation cecilio. ABSENT: rales, rhonchi, wheezes Cardiovascular exam: PRESENT: RRR. ABSENT: diastolic murmur, rubs, systolic murmur Pulses: PRESENT: normal dorsalis pedis pul Vascular exam: PRESENT: normal capillary refill GI/Abdominal exam: PRESENT: normal bowel sounds, soft. ABSENT: distended, guarding, mass, organolmegaly, rebound, tenderness Rectal exam: PRESENT: deferred Extremities exam: PRESENT: full ROM. ABSENT: calf tenderness, clubbing, pedal edema Neurological exam: PRESENT: alert, awake, oriented to person, oriented to place , oriented to time, oriented to situation, CN II-XII grossly intact. ABSENT: motor sensory deficit Psychiatric exam: PRESENT: appropriate affect, normal mood. ABSENT: homicidal ideation, suicidal ideation Skin exam: PRESENT: dry, intact, warm. ABSENT: cyanosis, rash Results Laboratory Results: 11/12/17 03:55 11/12/17 03:55 11/12/17 11/12/17 03:55 03:55 WBC 3.6 L RBC 4.48 Hgb 12.6 L Hct 37.5 L MCV 84 MCH 28.2 MCHC 33.7 RDW 15.2 H Plt Count 150 Seg Neutrophils % 53.6 Lymphocytes % 23.4 Monocytes % 18.8 H Eosinophils % 3.3 Basophils % 0.9 Absolute Neutrophils 1.9 Absolute Lymphocytes 0.8 Absolute Monocytes 0.7 Absolute Eosinophils 0.1 Absolute Basophils 0.0 Sodium 137.6 Potassium 4.0 Chloride 107 Carbon Dioxide 22 Anion Gap 9 BUN 14 Creatinine 1.32 H Est GFR ( Amer) > 60 Est GFR (Non-Af Amer) > 60 Glucose 90 Calcium 8.7 Impressions: Limited or Localized CT 11/09/17 14:16 IMPRESSION: 1. Non obstructing 3 mm stone in the proximal right ureter without associated hydronephrosis or hydroureter. 2. Intraperitoneal and retroperitoneal adenopath. Findings are concerning for metastatic disease or lymphoma. 3. Questionable retroperitoneal mass/lymph node just lateral to the pancreatic head and anterior to the IVC. Findings may also represent the caudate lobe of the liver. Contrast-enhanced imaging would be of benefit. 4. Splenomegaly. 5. Hepatomegaly with slightly nodular contour, suggestive of hepatic cirrhosis. 6. Trace pelvic ascites. Abdomen/Pelvis CT 11/10/17 00:00 IMPRESSION: 1. Supraclavicular and mediastinal adenopathy. 2. Peripheral bilateral ground-glass opacities of the chest with a small masslike consolidation of the left lower lobe. Findings may be due to underlying infectious or inflammatory etiology. However, metastatic disease is not excluded given the additional findings. 3. Previously questioned retroperitoneal mass between IVC and pancreas represents a large lymph node. Multiple splenic masses. Additional findings of the abdomen/pelvis are unchanged when compared to CT of 11/09/2017 IMPRESSION: See above Chest CT 11/10/17 00:00 IMPRESSION: 1. Supraclavicular and mediastinal adenopathy. 2. Peripheral bilateral ground-glass opacities of the chest with a small masslike consolidation of the left lower lobe. Findings may be due to underlying infectious or inflammatory etiology. However, metastatic disease is not excluded given the additional findings. 3. Previously questioned retroperitoneal mass between IVC and pancreas represents a large lymph node. Multiple splenic masses. Additional findings of the abdomen/pelvis are unchanged when compared to CT of 11/09/2017 IMPRESSION: See above Soft Tissue Neck CT 11/10/17 00:00 IMPRESSION: 1. Supraclavicular and mediastinal adenopathy. 2. Peripheral bilateral ground-glass opacities of the chest with a small masslike consolidation of the left lower lobe. Findings may be due to underlying infectious or inflammatory etiology. However, metastatic disease is not excluded given the additional findings. 3. Previously questioned retroperitoneal mass between IVC and pancreas represents a large lymph node. Multiple splenic masses. Additional findings of the abdomen/pelvis are unchanged when compared to CT of 11/09/2017 IMPRESSION: See above Abdomen Biopsy CT 11/12/17 00:00 IMPRESSION: CT GUIDED BIOPSY OF THE LEFT RETROPERITONEAL ENLARGED LYMPH NODES PERFORMED WITHOUT IMMEDIATE COMPLICATION. PATHOLOGY PENDING. IV CONSCIOUS SEDATION Guidance Needle Placement CT 11/12/17 00:00 IMPRESSION: CT GUIDED BIOPSY OF THE LEFT RETROPERITONEAL ENLARGED LYMPH NODES PERFORMED WITHOUT IMMEDIATE COMPLICATION. PATHOLOGY PENDING. IV CONSCIOUS SEDATION Assessment & Plan - Diagnosis (1) Intra and retroperitoneal adenopathy Is this a current diagnosis for this admission?: Yes Plan: Bx pending, will f/u results if stable, ok for d/c tomorrow and we will have f/ u 1 wk in office.
--- NOTE | 2017-11-12 18:28 | PDOC PROGRESS REPORT ---
Subjective Progress Note for:: 11/12/17 Subjective:: No new complaints. Reason For Visit: GROSS HEMATURIA,ACUTE KIDNEY INJURY,INTRAPERITONEA Physical Exam Vital Signs: Temp Pulse Resp BP Pulse Ox 97.4 F 61 12 141/91 H 99 11/12/17 16:00 11/12/17 16:00 11/12/17 16:00 11/12/17 16:00 11/12/17 16:00 Intake & Output 11/11/17 11/12/17 11/13/17 06:59 06:59 06:59 Intake Total 4505 3657 1550 Output Total 1725 1800 600 Balance 2780 1857 950 Weight 95.5 kg 101.1 kg General appearance: PRESENT: cooperative, well-developed, well-nourished Respiratory exam: PRESENT: other - No increased work of breathing.. ABSENT: rales, rhonchi, wheezes Cardiovascular exam: PRESENT: RRR. ABSENT: gallop, rubs, systolic murmur Pulses: PRESENT: normal carotid pulses, normal dorsalis pedis pul GI/Abdominal exam: PRESENT: normal bowel sounds, soft. ABSENT: hernia, mass, organolmegaly, tenderness Rectal exam: PRESENT: deferred Musculoskeletal exam: ABSENT: deformity, dislocation, normal inspection Neurological exam: PRESENT: alert, awake, oriented to person, oriented to place , oriented to time, oriented to situation, CN II-XII grossly intact. ABSENT: motor sensory deficit Skin exam: PRESENT: dry, intact, warm Results Laboratory Results: 11/12/17 03:55 11/12/17 03:55 11/12/17 11/12/17 03:55 03:55 WBC 3.6 L RBC 4.48 Hgb 12.6 L Hct 37.5 L MCV 84 MCH 28.2 MCHC 33.7 RDW 15.2 H Plt Count 150 Seg Neutrophils % 53.6 Lymphocytes % 23.4 Monocytes % 18.8 H Eosinophils % 3.3 Basophils % 0.9 Absolute Neutrophils 1.9 Absolute Lymphocytes 0.8 Absolute Monocytes 0.7 Absolute Eosinophils 0.1 Absolute Basophils 0.0 Sodium 137.6 Potassium 4.0 Chloride 107 Carbon Dioxide 22 Anion Gap 9 BUN 14 Creatinine 1.32 H Est GFR ( Amer) > 60 Est GFR (Non-Af Amer) > 60 Glucose 90 Calcium 8.7 Impressions: Limited or Localized CT 11/09/17 14:16 IMPRESSION: 1. Non obstructing 3 mm stone in the proximal right ureter without associated hydronephrosis or hydroureter. 2. Intraperitoneal and retroperitoneal adenopath. Findings are concerning for metastatic disease or lymphoma. 3. Questionable retroperitoneal mass/lymph node just lateral to the pancreatic head and anterior to the IVC. Findings may also represent the caudate lobe of the liver. Contrast-enhanced imaging would be of benefit. 4. Splenomegaly. 5. Hepatomegaly with slightly nodular contour, suggestive of hepatic cirrhosis. 6. Trace pelvic ascites. Abdomen/Pelvis CT 11/10/17 00:00 IMPRESSION: 1. Supraclavicular and mediastinal adenopathy. 2. Peripheral bilateral ground-glass opacities of the chest with a small masslike consolidation of the left lower lobe. Findings may be due to underlying infectious or inflammatory etiology. However, metastatic disease is not excluded given the additional findings. 3. Previously questioned retroperitoneal mass between IVC and pancreas represents a large lymph node. Multiple splenic masses. Additional findings of the abdomen/pelvis are unchanged when compared to CT of 11/09/2017 IMPRESSION: See above Chest CT 11/10/17 00:00 IMPRESSION: 1. Supraclavicular and mediastinal adenopathy. 2. Peripheral bilateral ground-glass opacities of the chest with a small masslike consolidation of the left lower lobe. Findings may be due to underlying infectious or inflammatory etiology. However, metastatic disease is not excluded given the additional findings. 3. Previously questioned retroperitoneal mass between IVC and pancreas represents a large lymph node. Multiple splenic masses. Additional findings of the abdomen/pelvis are unchanged when compared to CT of 11/09/2017 IMPRESSION: See above Soft Tissue Neck CT 11/10/17 00:00 IMPRESSION: 1. Supraclavicular and mediastinal adenopathy. 2. Peripheral bilateral ground-glass opacities of the chest with a small masslike consolidation of the left lower lobe. Findings may be due to underlying infectious or inflammatory etiology. However, metastatic disease is not excluded given the additional findings. 3. Previously questioned retroperitoneal mass between IVC and pancreas represents a large lymph node. Multiple splenic masses. Additional findings of the abdomen/pelvis are unchanged when compared to CT of 11/09/2017 IMPRESSION: See above Abdomen Biopsy CT 11/12/17 00:00 IMPRESSION: CT GUIDED BIOPSY OF THE LEFT RETROPERITONEAL ENLARGED LYMPH NODES PERFORMED WITHOUT IMMEDIATE COMPLICATION. PATHOLOGY PENDING. IV CONSCIOUS SEDATION Guidance Needle Placement CT 11/12/17 00:00 IMPRESSION: CT GUIDED BIOPSY OF THE LEFT RETROPERITONEAL ENLARGED LYMPH NODES PERFORMED WITHOUT IMMEDIATE COMPLICATION. PATHOLOGY PENDING. IV CONSCIOUS SEDATION Assessment & Plan - Diagnosis (1) Acute kidney injury Is this a current diagnosis for this admission?: Yes Plan: IV fluids. Somewhat improved. Monitor creatinine, volume status, and electrolytes. (2) Calculus of proximal right ureter Is this a current diagnosis for this admission?: Yes Plan: Non-obstructive. (3) Compensated cirrhosis of the liver Is this a current diagnosis for this admission?: Yes Plan: Noted. (4) Hematuria, gross Is this a current diagnosis for this admission?: Yes Plan: Secondary to #2. Monitor. Improving. (5) Hyperlipidemia Qualifiers: Hyperlipidemia type: unspecified Qualified Code(s): E78.5 - Hyperlipidemia , unspecified Is this a current diagnosis for this admission?: Yes Plan: Statin as at home. (6) Hypertension Qualifiers: Hypertension type: essential hypertension Qualified Code(s): I10 - Essential (primary) hypertension Is this a current diagnosis for this admission?: Yes Plan: Continue home medications as possible. (7) Intra and retroperitoneal adenopathy Is this a current diagnosis for this admission?: Yes Plan: Biopsy today. - Time Time Spent with patient: 25-34 minutes Medications reviewed and adjusted accordingly: Yes
[2017-11-12] MEDS: SIMVASTATIN 40 MG TABLET PO SCH (21:33)
[2017-11-13] MEDS: LANSOPRAZOLE 30 MG TAB.RAP.DR PO SCH (07:03)
[2017-11-13] MEDS: MAGNESIUM OXIDE 400 MG TABLET PO SCH (09:50)
[2017-11-13] MEDS: FLECAINIDE ACETATE 100 MG TABLET PO SCH (09:50)
[2017-11-13] MEDS: METOPROLOL TARTRATE 25 MG TABLET PO SCH (09:51)
--- NOTE | 2017-11-13 13:05 | PDOC PROGRESS REPORT ---
Subjective Progress Note for:: 11/13/17 Subjective:: Pt tolerated bx well, after I came back to office, was told by path that bx looks only like granuloma so suggested TB and sarcoidosis testing. Reason For Visit: GROSS HEMATURIA,ACUTE KIDNEY INJURY,INTRAPERITONEA Physical Exam Vital Signs: Temp Pulse Resp BP Pulse Ox 98.4 F 63 19 133/87 H 98 11/13/17 11:27 11/13/17 11:27 11/13/17 11:27 11/13/17 11:27 11/13/17 11:27 Intake & Output 11/12/17 11/13/17 11/14/17 06:59 06:59 06:59 Intake Total 3657 2790 1000 Output Total 1800 1200 Balance 1857 1590 1000 Weight 101.1 kg 101.1 kg General appearance: PRESENT: no acute distress, well-developed, well-nourished Head exam: PRESENT: atraumatic, normocephalic Eye exam: PRESENT: conjunctiva pink, EOMI, PERRLA. ABSENT: scleral icterus Ear exam: PRESENT: normal external ear exam Mouth exam: PRESENT: moist, tongue midline Neck exam: ABSENT: carotid bruit, JVD, lymphadenopathy, thyromegaly Respiratory exam: PRESENT: clear to auscultation cecilio. ABSENT: rales, rhonchi, wheezes Cardiovascular exam: PRESENT: RRR. ABSENT: diastolic murmur, rubs, systolic murmur Pulses: PRESENT: normal dorsalis pedis pul Vascular exam: PRESENT: normal capillary refill GI/Abdominal exam: PRESENT: normal bowel sounds, soft. ABSENT: distended, guarding, mass, organolmegaly, rebound, tenderness Rectal exam: PRESENT: deferred Extremities exam: PRESENT: full ROM. ABSENT: calf tenderness, clubbing, pedal edema Neurological exam: PRESENT: alert, awake, oriented to person, oriented to place , oriented to time, oriented to situation, CN II-XII grossly intact. ABSENT: motor sensory deficit Psychiatric exam: PRESENT: appropriate affect, normal mood. ABSENT: homicidal ideation, suicidal ideation Skin exam: PRESENT: dry, intact, warm. ABSENT: cyanosis, rash Results Laboratory Results: 11/12/17 03:55 11/12/17 03:55 Impressions: Limited or Localized CT 11/09/17 14:16 IMPRESSION: 1. Non obstructing 3 mm stone in the proximal right ureter without associated hydronephrosis or hydroureter. 2. Intraperitoneal and retroperitoneal adenopath. Findings are concerning for metastatic disease or lymphoma. 3. Questionable retroperitoneal mass/lymph node just lateral to the pancreatic head and anterior to the IVC. Findings may also represent the caudate lobe of the liver. Contrast-enhanced imaging would be of benefit. 4. Splenomegaly. 5. Hepatomegaly with slightly nodular contour, suggestive of hepatic cirrhosis. 6. Trace pelvic ascites. Abdomen/Pelvis CT 11/10/17 00:00 IMPRESSION: 1. Supraclavicular and mediastinal adenopathy. 2. Peripheral bilateral ground-glass opacities of the chest with a small masslike consolidation of the left lower lobe. Findings may be due to underlying infectious or inflammatory etiology. However, metastatic disease is not excluded given the additional findings. 3. Previously questioned retroperitoneal mass between IVC and pancreas represents a large lymph node. Multiple splenic masses. Additional findings of the abdomen/pelvis are unchanged when compared to CT of 11/09/2017 IMPRESSION: See above Chest CT 11/10/17 00:00 IMPRESSION: 1. Supraclavicular and mediastinal adenopathy. 2. Peripheral bilateral ground-glass opacities of the chest with a small masslike consolidation of the left lower lobe. Findings may be due to underlying infectious or inflammatory etiology. However, metastatic disease is not excluded given the additional findings. 3. Previously questioned retroperitoneal mass between IVC and pancreas represents a large lymph node. Multiple splenic masses. Additional findings of the abdomen/pelvis are unchanged when compared to CT of 11/09/2017 IMPRESSION: See above Soft Tissue Neck CT 11/10/17 00:00 IMPRESSION: 1. Supraclavicular and mediastinal adenopathy. 2. Peripheral bilateral ground-glass opacities of the chest with a small masslike consolidation of the left lower lobe. Findings may be due to underlying infectious or inflammatory etiology. However, metastatic disease is not excluded given the additional findings. 3. Previously questioned retroperitoneal mass between IVC and pancreas represents a large lymph node. Multiple splenic masses. Additional findings of the abdomen/pelvis are unchanged when compared to CT of 11/09/2017 IMPRESSION: See above Abdomen Biopsy CT 11/12/17 00:00 IMPRESSION: CT GUIDED BIOPSY OF THE LEFT RETROPERITONEAL ENLARGED LYMPH NODES PERFORMED WITHOUT IMMEDIATE COMPLICATION. PATHOLOGY PENDING. IV CONSCIOUS SEDATION Guidance Needle Placement CT 08/21/18 00:00 IMPRESSION: CT GUIDED BIOPSY OF THE LEFT RETROPERITONEAL ENLARGED LYMPH NODES PERFORMED WITHOUT IMMEDIATE COMPLICATION. PATHOLOGY PENDING. IV CONSCIOUS SEDATION Assessment & Plan - Diagnosis (1) Intra and retroperitoneal adenopathy Is this a current diagnosis for this admission?: Yes Plan: Prev felt to be concerning for lymphoma, but now seems to be 2nd granulomatous dx, ok for d/c today, f/u next week for final results, TB and sarcoid pending, highly unlikely to be TB given total lack of symptomatology, more likely to be indolent dx such as sarcoidosis
[2017-11-13 14:15] VITALS: BP 141/91
--- NOTE | 2017-11-13 17:21 | PDOC DISCHARGE SUMMARY ---
General - Admit/Disc Date/PCP Admission Date/Primary Care Provider: 11/09/17 17:25 Discharge Date: 11/13/17 - Discharge Diagnosis (1) Acute kidney injury Is this a current diagnosis for this admission?: Yes (2) Calculus of proximal right ureter Is this a current diagnosis for this admission?: Yes (3) Compensated cirrhosis of the liver Is this a current diagnosis for this admission?: Yes (4) Hematuria, gross Is this a current diagnosis for this admission?: Yes (5) Hyperlipidemia Is this a current diagnosis for this admission?: Yes (6) Hypertension Is this a current diagnosis for this admission?: Yes (7) Intra and retroperitoneal adenopathy Is this a current diagnosis for this admission?: Yes - Additional Information Resuscitation Status: Full Code Discharge Diet: Regular Discharge Activity: Activity As Tolerated Home Medications: Flecainide Acetate [Tambocor 100 mg Tablet] 100 mg PO Q12 11/10/17 Magnesium Oxide [Mag-Ox 400 mg Tablet] 400 mg PO Q8 11/10/17 Metoprolol Tartrate [Lopressor 25 mg Tablet] 25 mg PO Q12 11/10/17 Simvastatin [Zocor 20 mg Tablet] 20 mg PO QHS 11/10/17 History of Present Illness History of Present Illness: AARON ARIZMENDI is a 32 year old black male patient with past medical history of cirrhosis of the liver, hypertension, ventricular tachycardia requires electrical cardioversion and right bundle branch block, presented with chief complaint of gross painless hematuria of 1 day duration. Patient denies any chills, fever, palpitation or diaphoresis. He does not have any nausea, vomiting, abdominal pain or diarrhea. He endorses mild right flank pain. Initial workup shows acute kidney injury with creatinine of 1.[address] scan of the abdomen shows nonobstructing 3 mm stone in the proximal right ureter without associated hydronephrosis or hydroureter. There is also incidental finding of intra-peritoneal and retroperitoneal adenopathy and per radiologist the findings are concerning for for metastatic disease or lymphoma. For the acute kidney injury and hematuria patient started on aggressive hydration and the patient is being managed with Percocet. Dr. Campos has been consulted for his incidental finding of intraperitoneal and retroperitoneal adenopathy. 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 He smokes half a pack a day. Hospital Course Hospital Course: The patient was admitted to a medical bed. He was sent to interventional radiology to get a biopsy of the retroperitoneal masses. Dr. Barrios was consulted for hematology/oncology. The pathology on this biopsy returned as granuloma today. I have discussed the patient with Dr. Barrios. Once possible explanation for this finding other than tb is sarcoid. I have orderd ANGELA and serum ADA to investigate this possibility. The patient's hematuria has resolved. He will be discharged to home to follow up with Dr. Barrios as outpatient. Physical Exam Vital Signs: Temp Pulse Resp BP Pulse Ox 98.4 F 63 19 141/91 H 98 11/13/17 14:13 11/13/17 14:13 11/13/17 14:13 11/13/17 14:13 11/13/17 14:13 Intake & Output 11/12/17 11/13/17 11/14/17 06:59 06:59 06:59 Intake Total 3657 2790 1000 Output Total 1800 1200 Balance 1857 1590 1000 Weight 101.1 kg 101.1 kg General appearance: PRESENT: no acute distress, cooperative, other Eye exam: PRESENT: PERRLA Respiratory exam: PRESENT: other - No increased work of breathing.. ABSENT: rales, rhonchi, wheezes Cardiovascular exam: PRESENT: RRR. ABSENT: gallop, rubs, systolic murmur Pulses: PRESENT: normal femoral pulses, normal dorsalis pedis pul GI/Abdominal exam: PRESENT: mass, normal bowel sounds, soft. ABSENT: hernia, organolmegaly, tenderness Rectal exam: PRESENT: deferred Neurological exam: PRESENT: alert, awake, oriented to person, oriented to place , oriented to time, oriented to situation, CN II-XII grossly intact. ABSENT: motor sensory deficit Psychiatric exam: PRESENT: appropriate affect, normal mood Skin exam: PRESENT: dry, intact, warm Results Laboratory Results: 11/12/17 03:55 11/12/17 03:55 Impressions: Limited or Localized CT 11/09/17 14:16 IMPRESSION: 1. Non obstructing 3 mm stone in the proximal right ureter without associated hydronephrosis or hydroureter. 2. Intraperitoneal and retroperitoneal adenopath. Findings are concerning for metastatic disease or lymphoma. 3. Questionable retroperitoneal mass/lymph node just lateral to the pancreatic head and anterior to the IVC. Findings may also represent the caudate lobe of the liver. Contrast-enhanced imaging would be of benefit. 4. Splenomegaly. 5. Hepatomegaly with slightly nodular contour, suggestive of hepatic cirrhosis. 6. Trace pelvic ascites. Abdomen/Pelvis CT 11/10/17 00:00 IMPRESSION: 1. Supraclavicular and mediastinal adenopathy. 2. Peripheral bilateral ground-glass opacities of the chest with a small masslike consolidation of the left lower lobe. Findings may be due to underlying infectious or inflammatory etiology. However, metastatic disease is not excluded given the additional findings. 3. Previously questioned retroperitoneal mass between IVC and pancreas represents a large lymph node. Multiple splenic masses. Additional findings of the abdomen/pelvis are unchanged when compared to CT of 11/09/2017 IMPRESSION: See above Chest CT 11/10/17 00:00 IMPRESSION: 1. Supraclavicular and mediastinal adenopathy. 2. Peripheral bilateral ground-glass opacities of the chest with a small masslike consolidation of the left lower lobe. Findings may be due to underlying infectious or inflammatory etiology. However, metastatic disease is not excluded given the additional findings. 3. Previously questioned retroperitoneal mass between IVC and pancreas represents a large lymph node. Multiple splenic masses. Additional findings of the abdomen/pelvis are unchanged when compared to CT of 11/09/2017 IMPRESSION: See above Soft Tissue Neck CT 11/10/17 00:00 IMPRESSION: 1. Supraclavicular and mediastinal adenopathy. 2. Peripheral bilateral ground-glass opacities of the chest with a small masslike consolidation of the left lower lobe. Findings may be due to underlying infectious or inflammatory etiology. However, metastatic disease is not excluded given the additional findings. 3. Previously questioned retroperitoneal mass between IVC and pancreas represents a large lymph node. Multiple splenic masses. Additional findings of the abdomen/pelvis are unchanged when compared to CT of 11/09/2017 IMPRESSION: See above Abdomen Biopsy CT 11/12/17 00:00 IMPRESSION: CT GUIDED BIOPSY OF THE LEFT RETROPERITONEAL ENLARGED LYMPH NODES PERFORMED WITHOUT IMMEDIATE COMPLICATION. PATHOLOGY PENDING. IV CONSCIOUS SEDATION Guidance Needle Placement CT 11/12/17 00:00 IMPRESSION: CT GUIDED BIOPSY OF THE LEFT RETROPERITONEAL ENLARGED LYMPH NODES PERFORMED WITHOUT IMMEDIATE COMPLICATION. PATHOLOGY PENDING. IV CONSCIOUS SEDATION Qualifiers - * PATIENT BEING DISCHARGED WITH ANY OF THE FOLLOWING DIAGNOSIS: No Plan Discharge Plan: The patient will be discharged to home. ADA, ANGELA, and Tb Gold labs have been drawn as the patient's biopsy has come back as simply granulomatous tissue. The patient is completely asymptomatic. He will follow up with Dr. Barrios as outpatient.
== END 2017-11-13 14:31 | disposition home or self-care (01) | DRG 683 ==
LOC: ER 12:48 → EH 17:25 → 4N 18:16
PROVIDERS: ADMIT Internal Medicine; ATTEND Internal Medicine
PROC: 0WBH3ZX Excision of Retroperitoneum, Percutaneous Approach, Diagnostic (ICD-10-PCS; principal; 2017-11-12)
DX: N17.9 Acute kidney failure, unspecified (principal); N20.1 Calculus of ureter; I47.2 Ventricular tachycardia; R31.0 Gross hematuria; K74.60 Unspecified cirrhosis of liver; E78.5 Hyperlipidemia, unspecified; I10 Essential (primary) hypertension; R59.9 Enlarged lymph nodes, unspecified; D86.9 Sarcoidosis, unspecified; K66.8 Other specified disorders of peritoneum; R63.4 Abnormal weight loss; F17.210 Nicotine dependence, cigarettes, uncomplicated; Z68.31 Body mass index [BMI] 31.0-31.9, adult
CPT/HCPCS: 36415; 49180; 70491; 71260; 74177; 76380; 77012; 80048; 80053; 80074; 80307; 81001; 82164; 82550; 83615; 85025; 85384; 85610; 85730; 86480; 86701; 88305; 88312; 96360; 96361; 99285; J2250; J3010; J3490; J7030

== ENCOUNTER 2018-02-21 17:10 | Emergency (ER) | payer SELFPAY ==
[2018-02-21] MEDS ORDERED: ASPIRIN 81 MG TABLET, CHEWABLE PO ONE (18:32)
--- NOTE | 2018-02-21 18:34 | ER Document Report ---
ED Medical Screen (RME) - General Chief Complaint: Palpitations Stated Complaint: ABNORMAL TESTS Time Seen by Provider: 02/21/18 18:30 Notes: 32 years old male with a history of cardiac ablation, on flecainide and metoprolol. Presents today with palpitation since this morning. No chest pain. EKG shows multiple PVCs. TRAVEL OUTSIDE OF THE [place] IN LAST 30 DAYS: No - Related Data Allergies/Adverse Reactions: sulfamethoxazole [From Bactrim] Allergy (Verified 02/21/18 17:12) trimethoprim [From Bactrim] Allergy (Verified 02/21/18 17:12) Past Medical History - Social History Chew tobacco use (# tins/day): No Frequency of alcohol use: None Drug Abuse: None - Past Medical History Cardiac Medical History: Reports: Hx Hypercholesterolemia, Hx Hypertension Renal/ Medical History: Denies: Hx Peritoneal Dialysis Psychiatric Medical History: Denies: Hx Depression Past Surgical History: Reports: Hx Cardiac Catheterization - Cardiac ablation 2 , Hx Cardiac Surgery - ablation 1 year ago, Other - Ablation - Immunizations Immunizations up to date: Yes Hx Diphtheria, Pertussis, Tetanus Vaccination: No
--- NOTE | 2018-02-21 19:21 | RADIOLOGY REPORT (SQ) ---
EXAM DESCRIPTION: CHEST SINGLE VIEW COMPLETED DATE/TIME: 02/21/2018 7:02 pm REASON FOR STUDY: Palpitation COMPARISON: 10/06/2017 and earlier EXAM PARAMETERS: NUMBER OF VIEWS: One view. TECHNIQUE: Single frontal radiographic view of the chest acquired. RADIATION DOSE: NA LIMITATIONS: None. FINDINGS: LUNGS AND PLEURA: No opacities, masses or pneumothorax. No pleural effusion. Unchanged li near atelectasis versus scarring of the left mid lung. MEDIASTINUM AND HILAR STRUCTURES: No masses. Contour normal. HEART AND VASCULAR STRUCTURES: Heart normal in size. Normal vasculature. BONES: No acute findings. HARDWARE: None in the chest. OTHER: No other significant finding. IMPRESSION: NO ACUTE RADIOGRAPHIC FINDING IN THE CHEST. TECHNICAL DOCUMENTATION: JOB ID: [id number] [employer]- All Rights Reserved Reading location - IP/workstation name: [email or web address]
--- NOTE | 2018-02-21 19:47 | EKG REPORT ---
SEVERITY:- ABNORMAL ECG - SINUS RHYTHM RUN OF VENTRICULAR PREMATURE COMPLEXES RBBB AND LPFB PROBABLE INFERIOR INFARCT, AGE INDETERMINATE : Confirmed by: Cricket Holden MD 21-Feb-2018 19:47:10
[2018-02-21 19:49] LABS: ABSOLUTE EOSINOPHILS # (AUTO) 0.2 10^3/uL (0.0-0.6); ABSOLUTE LYMPHOCYTES (AUTO) 1.1 10^3/uL (0.5-4.7); ABSOLUTE MONOCYTES (AUTO) 0.7 10^3/uL (0.1-1.4); ABSOLUTE NEUT (AUTO) 1.5 10^3/uL (1.7-8.2); BASOPHILS % (AUTO) 0.9 % (0-2); EOSINOPHILS % (AUTO) 5.1 % (0-6); HEMATOCRIT 45.7 % (37.9-51.0); HEMOGLOBIN 15.5 g/dL (13.5-17.0); LYMPHOCYTES % (AUTO) 32.1 % (13-45); MEAN CORPUSCULAR HEMOGLOBIN 29.2 pg (27.0-33.4); MEAN CORPUSCULAR HGB CONC 33.8 g/dL (32.0-36.0); MEAN CORPUSCULAR VOLUME 87 fl (80-97); MONOCYTES % (AUTO) 19.7 % (3-13); PLATELET COUNT 159 10^3/uL (150-450); RED BLOOD COUNT 5.29 10^6/uL (4.35-5.55); RED CELL DISTRIBUTION WIDTH 16.7 % (11.5-14.0); SEGMENTED NEUTROPHILS % (AUTO) 42.2 % (42-78); TOTAL CELLS COUNTED % (AUTO) 100 %; WHITE BLOOD COUNT 3.5 10^3/uL (4.0-10.5)
[2018-02-21 20:05] LABS: ALANINE AMINOTRANSFERASE 36 U/L (21-72); ALBUMIN 3.9 g/dL (3.5-5.0); ALKALINE PHOSPHATASE 310 U/L (38-126); ANION GAP 15 (5-19); ASPARTATE AMINO TRANSFERASE 41 U/L (17-59); BILIRUBIN,DIRECT 0.4 mg/dL (0.0-0.4); BILIRUBIN,TOTAL 0.7 mg/dL (0.2-1.3); BLOOD UREA NITROGEN 19 mg/dL (7-20); CALCIUM 9.5 mg/dL (8.4-10.2); CARBON DIOXIDE 24 mmol/L (22-30); CHLORIDE 104 mmol/L (98-107); CREATINE KINASE 80 U/L (55-170); GLUCOSE 84 mg/dL (75-110); SODIUM 143.1 mmol/L (137-145); TOTAL PROTEIN 7.6 g/dL (6.3-8.2)
[2018-02-21] MEDS ORDERED: METOPROLOL TARTRATE 50 MG TABLET PO ONE (20:15)
[2018-02-21] MEDS ORDERED: FLECAINIDE ACETATE 100 MG TABLET PO ONE (20:15)
[2018-02-21 20:17] LABS: CREATINE KINASE MB 1.3 ng/mL (<4.55); TROPONIN I 0.032 ng/mL
--- NOTE | 2018-02-21 20:19 | ER Document Report ---
ED General - General Chief Complaint: Palpitations Stated Complaint: ABNORMAL TESTS Time Seen by Provider: 02/21/18 18:30 Notes: Patient is a 32-year old male with a past medical history of ventricular tachycardia, recurrent PVCs, has had multiple ablations in the past, currently on flecainide and metoprolol who presents with 24 hours of palpitations, lightheadedness but denies associated chest pain or shortness of breath. Patient states this feels similar to when his palpitations and PVCs have become uncontrolled in the past. States that he has been taking his flecainide and metoprolol as directed although notes that these medications are decreased after his most recent ablation at [facility] approximately 2-3 months ago. He has not contacted his yard jockey regarding today's concerns. He denies any syncope. Denies any alcohol or drug use. Nothing seems to improve or worsen his symptoms. TRAVEL OUTSIDE OF THE [place] IN LAST 30 DAYS: No - Related Data Allergies/Adverse Reactions: sulfamethoxazole [From Bactrim] Allergy (Verified 02/21/18 17:12) trimethoprim [From Bactrim] Allergy (Verified 02/21/18 17:12) Past Medical History - General Information source: Patient - Social History Smoking Status: Current Every Day Smoker Chew tobacco use (# tins/day): No Frequency of alcohol use: None Drug Abuse: None Lives with: Spouse/Significant other Family History: Reviewed & Not Pertinent Patient has suicidal ideation: No Patient has homicidal ideation: No - Past Medical History Cardiac Medical History: Reports: Hx Hypercholesterolemia, Hx Hypertension Renal/ Medical History: Denies: Hx Peritoneal Dialysis Psychiatric Medical History: Denies: Hx Depression Past Surgical History: Reports: Hx Cardiac Catheterization - Cardiac ablation 2 , Hx Cardiac Surgery - ablation 1 year ago, Other - Ablation - Immunizations Immunizations up to date: Yes Hx Diphtheria, Pertussis, Tetanus Vaccination: No Review of Systems - Review of Systems Notes: Constitutional: Negative for fever. HENT: Negative for sore throat. Eyes: Negative for visual changes. Cardiovascular: Positive for palpitations and lightheadedness Respiratory: Negative for shortness of breath. Gastrointestinal: Negative for abdominal pain, vomiting or diarrhea. Genitourinary: Negative for dysuria. Musculoskeletal: Negative for back pain. Skin: Negative for rash. Neurological: Negative for headaches, weakness or numbness. 10 point ROS negative except as marked above and in HPI. Physical Exam - Vital signs Vitals: Resp 17 02/21/18 19:38 Interpretation: Tachycardic Notes: PHYSICAL EXAMINATION: GENERAL: Well-appearing, well-nourished and in no acute distress. HEAD: Atraumatic, normocephalic. EYES: Pupils equal round and reactive to light, extraocular movements intact, sclera anicteric, conjunctiva are normal. ENT: nares patent, oropharynx clear without exudates. Moist mucous membranes. NECK: Normal range of motion, supple without lymphadenopathy LUNGS: Breath sounds clear to auscultation bilaterally and equal. No wheezes rales or rhonchi. HEART: Irregularly irregular rhythm, without murmurs ABDOMEN: Soft, nontender, normoactive bowel sounds. No guarding, no rebound. No masses appreciated. EXTREMITIES: Normal range of motion, no pitting or edema. No cyanosis. NEUROLOGICAL: No focal neurological deficits. Moves all extremities spontaneously and on command. PSYCH: Normal mood, normal affect. SKIN: Warm, Dry, normal turgor, no rashes or lesions noted. Course - Re-evaluation Re-evalutation: 02/21/18 20:18 Patient presents with a significant number of PVCs. He is having runs of bigeminy and trigeminy although sometimes actually has up to 6 PVCs in a row followed by a prolonged pause. The patient has a known history of this, is on both flecainide and metoprolol, dose was recently decreased to 50 twice daily both down to 25 twice daily of both. He denies any symptoms other than palpitations. Labs unremarkable. He follows with Dr. Villarreal who is an elective die baker at [facility]. I have contacted for consultation. Will give a dose of 50 mg of metoprolol and flecainide given the frequency of his palpitations and continue to monitor the patient closely. 02/21/18 20:59 I did discuss this case with Dr. Ford the elective die baker on-call for [facility]. I did relate the concern of patient having very frequent PVCs that were symptomatic. She did advise that we increase the metoprolol and flecainide to 50 mg twice daily. The patient subsequently told me that he was mistaken and that he has been on flecainide 50 twice daily. Will monitor the patient as he has received both of these medications at the appropriate dose for improvement of his symptoms and then plan for discharge home. I did discuss with Dr. Ford regarding possible hospitalization versus outpatient follow-up and she did advise that the patient does not require transfer at this point and that he should increase his metoprolol to 50 mg twice daily as well as lichenoid 50 mg twice daily should be continued. The patient's laboratories otherwise unremarkable. Symptomatically improved after receiving the appropriate medications here in the emergency department. At this time will discharge with return precautions and follow-up recommendations. Verbal discharge instructions given a the bedside and opportunity for questions given. Medication warnings reviewed. Patient is in agreement with this plan and has verbalized understanding of return precautions and the need for electrophysiology on Saturday. - Vital Signs Vital signs: Temp Pulse Resp BP Pulse Ox 25 H 150/84 H 98 02/21/18 21:02 02/21/18 21:02 02/21/18 21:02 - Laboratory Result Diagrams: 02/21/18 19:26 02/21/18 19:26 Laboratory results interpreted by me: 02/21/18 02/21/18 19:26 19:26 WBC 3.5 L RDW 16.7 H Monocytes % 19.7 H Absolute Neutrophils 1.5 L Creatinine 1.54 H Est GFR (Non-Af Amer) 52 L Alkaline Phosphatase 310 H - Diagnostic Test Radiology reviewed: Image reviewed, Reports reviewed Radiology results interpreted by me: 02/21/18 21:01 CXR: No acute infiltrate or pneumothorax - EKG Interpretation by Me Additional EKG results interpreted by me: 02/21/18 21:04 Sinus rhythm, rate 99. Frequent PVCs. Right bundle branch block and left posterior fascicular block unchanged from prior. Discharge - Discharge Clinical Impression: History of cardioversion, Frequent PVCs, Lightheadedness Condition: Good Disposition: HOME, SELF-CARE Additional Instructions: I did speak with Dr.Park santiago who was self contained behavior unit teacher for cardiology at [facility]. Please continue your flecainide 50 mg twice daily. Increase metoprolol to 50 mg twice daily. Follow-up with Dr. Villarreal in the office on Saturday. Please return to the emergency department immediately if you develop chest pain , worsening or palpitations, pass out, having shortness of breath, or have any other symptoms that are worrisome to you. Prescriptions: Metoprolol Tartrate [Lopressor 50 mg Tablet] 50 mg PO Q12H #60 tablet
[2018-02-21 21:49] VITALS: BP 150/84
--- NOTE | 2018-02-22 08:13 | EKG REPORT ---
SEVERITY:- ABNORMAL ECG - VENTRICULAR TACHYCARDIA 11 BEAT RUN RIGHT BUNDLE BRANCH BLOCK LONG QT 493MS. HR78/MIN. : Confirmed by: Cricket Holden MD 22-Feb-2018 08:12:31
== END 2018-02-21 22:19 | disposition home or self-care (01) ==
LOC: ER 17:10
DX: I49.3 Ventricular premature depolarization (principal); R42 Dizziness and giddiness; R00.2 Palpitations; F17.200 Nicotine dependence, unspecified, uncomplicated; E78.00 Pure hypercholesterolemia, unspecified; Z88.3 Allergy status to other anti-infective agents
CPT/HCPCS: 93005; 99285; 36415; 82553; 82550; 85025; 80053; 84484; 71045; 93010; J3490

== ENCOUNTER 2019-06-06 15:08 | Emergency (ER) | payer MEDICAID ==
[2019-06-06] MEDS ORDERED: DEXAMETHASONE SOD PHOS INJ 10 MG/1 ML VIAL IM ONE (15:16)
[2019-06-06] MEDS ORDERED: METHYLPREDNISOLONE ACETATE INJ 40 MG/1 ML ML IM ONE (15:16)
--- NOTE | 2019-06-06 15:18 | ER Document Report ---
HPI - HPI Time Seen by Provider: 06/06/19 15:14 Onset: Other - This is a 34-year-old male who presented to the emergency room today requesting to be flu tested because he is coming contact with it through his son about a week ago. He has no fever no nausea no vomiting no coughing. However he does have a pronounced nasal discharge he does feel little congested Mucinex has been working he is a smoker 1 pack a day smoker. Quality of pain: No pain Associated Symptoms: None Exacerbated by: Denies - REPRODUCTIVE Reproductive: DENIES: : Past Medical History - General Information source: Patient - Social History Smoking Status: Never Smoker Cigarette use (# per day): No Chew tobacco use (# tins/day): No Smoking Education Provided: No Family History: Reviewed & Not Pertinent - Past Medical History Cardiac Medical History: Reports: Hx Hypercholesterolemia, Hx Hypertension Renal/ Medical History: Denies: Hx Peritoneal Dialysis Psychiatric Medical History: Denies: Hx Depression Past Surgical History: Reports: Hx Cardiac Catheterization - Cardiac ablation 2, Hx Cardiac Surgery - ablation 1 year ago, Other - Ablation - Immunizations Immunizations up to date: Yes Hx Diphtheria, Pertussis, Tetanus Vaccination: No Vertical Provider Document - CONSTITUTIONAL Agree With Documented VS: Yes - INFECTION CONTROL TRAVEL OUTSIDE OF THE [place] IN LAST 30 DAYS: No - HEENT HEENT: Atraumatic, Conjuctival Injection, Normocephalic, PERRLA - NECK Neck: Normal Inspection - RESPIRATORY Respiratory: Breath Sounds Normal - GI/ABDOMEN Gastrointestinal: Abdomen Soft, Abdomen Non-Tender Discharge - Discharge Clinical Impression: Allergic rhinitis Qualifiers: Allergic rhinitis trigger: other Allergic rhinitis seasonality: seasonal Qualified Code(s): J30.89 - Other allergic rhinitis Condition: Good Disposition: HOME, SELF-CARE Additional Instructions: Increase fluid intake rest follow-up with PMD in 3 to 5 days.
[2019-06-06 15:56] LABS: A TYPE INFLUENZA AG NEGATIVE (NEGATIVE); B INFLUENZA AG NEGATIVE (NEGATIVE)
[2019-06-06 16:28] VITALS: BP 119/72
== END 2019-06-06 16:27 | disposition home or self-care (01) ==
LOC: ER 15:08
DX: J30.2 Other seasonal allergic rhinitis (principal); Z20.828 Contact with and (suspected) exposure to other viral communicable diseases; I10 Essential (primary) hypertension
CPT/HCPCS: 99283; 96372; 87804; J1030; J1100

== ENCOUNTER → 2019-06-16 | Outpatient (CLI) | payer MEDICAID ==
--- NOTE | 2019-06-16 10:33 | RADIOLOGY REPORT (SQ) ---
EXAM DESCRIPTION: CT CHEST WITHOUT COMPLETED DATE/TIME: 06/16/2019 9:21 am REASON FOR STUDY: SARCCOIDOSIS OF LUNG D86.2 SARCOIDOSIS OF LUNG WITH SARCOIDOSIS OF LYMPH NODES COMPARISON: 11/10/2017 TECHNIQUE: CT scan performed of the chest without intravenous contrast. Images reviewed with lung, soft tissue and bone windows. Reconstructed coronal and sagittal MPR images reviewed. All images st ored on PACS. All CT scanners at this facility use dose modulation, iterative reconstruction, and/or weight based d osing when appropriate to reduce radiation dose to as low as reasonably achievable (ALARA). [facility]: Dose Right [facility]: CareDose [facility]: Dose Right [facility]: Teradose 4D [facility]: [employer] RADIATION DOSE: CT Rad equipment meets quality standard of care and radiation dose reduction techniq ues were employed. CTDIvol: 10.2 mGy. DLP: 435 mGy-cm. mGy. LIMITATIONS: No technical limitations. FINDINGS: LUNGS AND PLEURA: Patchy reticulonodular pattern more prevalent in the lower lobes. No co nsolidation or fibrosis. HILAR AND MEDIASTINAL STRUCTURES: Small mediastinal nodes measuring up to 10 mm in short axis. No bu lky adenopathy. HEART AND VASCULAR STRUCTURES: No aneurysm. No pericardial effusion. UPPER ABDOMEN: No significant findings. Limited exam. THYROID AND OTHER SOFT TISSUES: No masses. No adenopathy. BONES: No significant finding. HARDWARE: Left-sided defibrillator. OTHER: No other significant findings. IMPRESSION: Interstitial lung disease consistent with clinical history sarcoid. No fibrosis. TECHNICAL DOCUMENTATION: JOB ID: [id number] Quality ID # [id number]: Final reports with documentation of one or more dose reduction techniques (e.g., Au tomated exposure control, adjustment of the mA and/or kV according to patient size, use of iterative reconstruction technique) 2010 [employer]- All Rights Reserved Reading location - IP/workstation name: [email or web address]
== END ==
LOC: RAD 08:42
PROVIDERS: ATTEND Internal Medicine
DX: D86.2 Sarcoidosis of lung with sarcoidosis of lymph nodes (principal)
CPT/HCPCS: 71250; 82565

== ENCOUNTER → 2019-08-03 | Outpatient (CLI) | payer MEDICAID ==
--- NOTE | 2019-08-03 10:59 | RADIOLOGY REPORT (SQ) ---
EXAM DESCRIPTION: U/S RETROPERITON LTD IMAGES COMPLETED DATE/TIME: 08/03/2019 8:04 am REASON FOR STUDY: ABN RESULTS OF KIDNEY FUNCTION STUDIES (R94.4) R94.4 ABNORMAL RESULTS OF KIDNEY F UNCTION STUDIES COMPARISON: CT of the abdomen and pelvis with contrast from 11/10/2017. TECHNIQUE: Dynamic and static grayscale images acquired of the kidneys and bladder and recorded on P ACS. Additional selected color Doppler and spectral images recorded. LIMITATIONS: None. FINDINGS: RIGHT KIDNEY: The right kidney measures 9.9 cm in length. The corticomedullary different iation is preserved. There is no calcification, hydronephrosis or mass. LEFT KIDNEY: The left kidney measures 10.8 cm in length. The corticomedullary differentiation is pr eserved. There is no calcification, hydronephrosis or mass. BLADDER: The urinary bladder is partially distended. OTHER FINDINGS: The spleen is enlarged and it measures 15.4 cm in length. There is a hypoechoic mass with a echogenic focus in its center that measures 2.5 x 2 x 2.4 cm. IMPRESSION: 1. No abnormality of the kidneys. 2. Limited evaluation of the partially distended urinary bladder. 3. Splenomegaly and hypoechoic splenic mass that measures 2.5 x 2 x 2.4 cm. TECHNICAL DOCUMENTATION: JOB ID: [id number] 2010 [employer]- All Rights Reserved Reading location - IP/workstation name: [email or web address]
== END ==
LOC: RAD 07:22
PROVIDERS: ATTEND Internal Medicine
DX: R94.4 Abnormal results of kidney function studies (principal); R16.1 Splenomegaly, not elsewhere classified
CPT/HCPCS: 76775

== ENCOUNTER → 2019-09-17 | Outpatient (CLI) | payer MEDICAID ==
--- NOTE | 2019-09-17 13:27 | RADIOLOGY REPORT (SQ) ---
EXAM DESCRIPTION: CT ABD/PELVIS ORAL ONLY IMAGES COMPLETED DATE/TIME: 09/17/2019 12:14 pm REASON FOR STUDY: SPLENOMEGALY, NOT ELSEWHERE CLASSIFIED R16.1 SPLENOMEGALY, NOT ELSEWHERE CLASSIFI ED COMPARISON: None. TECHNIQUE: CT scan of the abdomen and pelvis performed without intravenous contrast and with oral co ntrast. Images reviewed with lung, soft tissue, and bone windows. Reconstructed coronal and sagittal MPR images reviewed. All images stored on PACS. All CT scanners at this facility use dose modulation, iterative reconstruction, and/or weight based d osing when appropriate to reduce radiation dose to as low as reasonably achievable (ALARA). [facility]: Dose Right [facility]: CareDose [facility]: Dose Right [facility]: Teradose 4D [facility]: [employer] RADIATION DOSE: CT Rad equipment meets quality standard of care and radiation dose reduction techniq ues were employed. CTDIvol: 7.4 mGy. DLP: 434 mGy-cm.mGy. LIMITATIONS: None. FINDINGS: LOWER CHEST: Chronic changes in the lung bases. NON-CONTRASTED LIVER, SPLEEN, ADRENALS: The spleen is enlarged, measuring 15.8 cm. The liver and adr enal glands are unremarkable. PANCREAS: No masses. No peripancreatic inflammatory changes. GALLBLADDER: No identified stones by CT criteria. No inflammatory changes to suggest cholecystitis. RIGHT KIDNEY AND URETER: No suspicious masses. Assessment limited by lack of IV contrast. There are 2 tiny nonobstructing intrarenal calculi. No hydronephrosis or hydroureter. LEFT KIDNEY AND URETER: No suspicious masses. Assessment limited by lack of IV contrast. No signifi cant calcifications. No hydronephrosis or hydroureter. AORTA AND RETROPERITONEUM: No aneurysm. Periaortic adenopathy is present. BOWEL AND PERITONEAL CAVITY: No obvious masses or inflammatory changes. No free fluid. APPENDIX: Not identified. PELVIS, BLADDER, AND ABDOMINAL WALL:No abnormal masses. No free fluid. Bladder normal. BONES: There is a well-circumscribed 21.5 mm bone cyst in the intertrochanteric region of the left hi p. OTHER: No other significant finding. IMPRESSION: 1. Splenomegaly with periaortic adenopathy. 2. There are 2 tiny nonobstructing right intrarenal calculi. 3. There is a well-circumscribed thick-walled benign-appearing bone cyst in the left hip. COMMENT: Quality ID # [id number]: Final reports with documentation of one or more dose reduction techniques (e.g., Automated exposure control, adjustment of the mA and/or kV according to patient size, use of iterative reconstruction technique) TECHNICAL DOCUMENTATION: JOB ID: [id number] 2010 [employer] ([employer] All Rights Reserved Reading location - IP/workstation name: [email or web address]
== END ==
LOC: RAD 09:58
PROVIDERS: ATTEND Internal Medicine
DX: R16.1 Splenomegaly, not elsewhere classified (principal)
CPT/HCPCS: 74176

== ENCOUNTER 2020-03-28 20:49 | Inpatient (IN) | payer MEDICAID ==
--- NOTE | 2020-03-28 21:49 | ER Document Report ---
ED Medical Screen (RME) - General Chief Complaint: Abdominal Pain Stated Complaint: ABDOMINAL PAIN Time Seen by Provider: 03/28/20 21:45 Primary Care Provider: MARKY WEI MD [Primary Care Provider] - Follow up as needed Mode of Arrival: Ambulatory Information source: Patient Notes: 34-year-old male presented to ED for complaint of severe bilateral abdominal pain that started about 4 PM today. He states he does have a history of kidney stones he also has a defibrillator pacemaker. He is not on any blood thinners that I can see from his prescriptions he has with him. He is alert oriented respirations regular nonlabored speaking in full sentences. He states it feels a little short of breath when he takes a deep breath due to his abdominal pain but he is not nauseated he is not really short of breath he is not coughing congestion and has had no fever. We will get blood urine and CT abdomen pelvis. Will give dose of [place] at this time. After performing a Medical Screening Examination, I spoke with the patient at length in regards to leaving the hospital against medical advice. I do not believe the patient should leave but the patient is alert oriented x4, understands the risks and benefits of staying and leaving including disability and . Pt understands that he can return at any time for further care and is more than welcome to do so. Pt verbalizes this understanding. TRAVEL OUTSIDE OF THE [place] IN LAST 30 DAYS: No - Related Data Allergies/Adverse Reactions: sulfamethoxazole [From Bactrim] Allergy (Verified 06/06/19 15:15) trimethoprim [From Bactrim] Allergy (Verified 06/06/19 15:15) Past Medical History - Past Medical History Cardiac Medical History: Reports: Hx Hypercholesterolemia, Hx Hypertension Renal/ Medical History: Denies: Hx Peritoneal Dialysis Psychiatric Medical History: Denies: Hx Depression Past Surgical History: Reports: Hx Cardiac Catheterization - Cardiac ablation 2, Hx Cardiac Surgery - ablation 1 year ago, Other - Ablation - Immunizations Immunizations up to date: Yes Hx Diphtheria, Pertussis, Tetanus Vaccination: No Physical Exam - Vital signs Vitals: Temp Pulse BP Pulse Ox 97.5 F 49 L 114/72 100 03/28/20 20:55 03/28/20 20:55 03/28/20 20:55 03/28/20 20:55 Course - Vital Signs Vital signs: Temp Pulse Resp BP Pulse Ox 97.5 F 49 L 114/72 100 03/28/20 20:55 03/28/20 20:55 03/28/20 20:55 03/28/20 20:55 Doctor's Discharge - Discharge Referrals: MARKY WEI MD [Primary Care Provider] - Follow up as needed
[2020-03-28] MEDS ORDERED: HYDROCODONE/ACETAMINOPHEN 5-325 MG TABLET PO ONE (21:54)
[2020-03-28 23:02] LABS: ABSOLUTE BASOPHILS # (AUTO) 0.1 10^3/uL (0.0-0.2); ABSOLUTE EOSINOPHILS # (AUTO) 0.1 10^3/uL (0.0-0.6); ABSOLUTE LYMPHOCYTES (AUTO) 1.1 10^3/uL (0.5-4.7); ABSOLUTE MONOCYTES (AUTO) 0.8 10^3/uL (0.1-1.4); ABSOLUTE NEUT (AUTO) 10.9 10^3/uL (1.7-8.2); BASOPHILS % (AUTO) 0.5 % (0-2); EOSINOPHILS % (AUTO) 0.5 % (0-6); HEMATOCRIT 48.5 % (37.9-51.0); HEMOGLOBIN 16.4 g/dL (13.5-17.0); LYMPHOCYTES % (AUTO) 8.8 % (13-45); MEAN CORPUSCULAR HEMOGLOBIN 32.7 pg (27.0-33.4); MEAN CORPUSCULAR HGB CONC 33.8 g/dL (32.0-36.0); MEAN CORPUSCULAR VOLUME 97 fl (80-97); MONOCYTES % (AUTO) 5.8 % (3-13); PLATELET COUNT 181 10^3/uL (150-450); RED BLOOD COUNT 5.01 10^6/uL (4.35-5.55); RED CELL DISTRIBUTION WIDTH 17.1 % (11.5-14.0); SEGMENTED NEUTROPHILS % (AUTO) 84.4 % (42-78); TOTAL CELLS COUNTED % (AUTO) 100 %; WHITE BLOOD COUNT 12.9 10^3/uL (4.0-10.5)
[2020-03-28 23:06] LABS: APPEARANCE,URINE SLIGHTLY-CLOUDY; BILIRUBIN,URINE NEGATIVE (NEGATIVE); COLOR,URINE AMBER; GLUCOSE, URINE NEGATIVE (NEGATIVE); KETONES,URINE TRACE mg/dL (NEGATIVE); LEUKOCYTE ESTERASE,URINE TRACE (NEGATIVE); NITRITE,URINE NEGATIVE (NEGATIVE); PROTEIN,URINE 100 mg/dL (NEGATIVE); URINE SPECIFIC GRAVITY 1.033
[2020-03-28 23:11] LABS: ALKALINE PHOSPHATASE 209 U/L (38-126); ANION GAP 8 (5-19); ASPARTATE AMINO TRANSFERASE 37 U/L (17-59); BILIRUBIN,DIRECT 0.4 mg/dL (0.0-0.4); BILIRUBIN,TOTAL 1.5 mg/dL (0.2-1.3); BLOOD UREA NITROGEN 25 mg/dL (7-20); CALCIUM 9.4 mg/dL (8.4-10.2); CARBON DIOXIDE 29 mmol/L (22-30); CHLORIDE 98 mmol/L (98-107); GLUCOSE 114 mg/dL (75-110); POTASSIUM 3.2 mmol/L (3.6-5.0)
--- NOTE | 2020-03-28 23:44 | RADIOLOGY REPORT (SQ) ---
CT abdomen and pelvis without contrast on 03/28/2020 at 10:57 PM CLINICAL INDICATION: Bilateral generalized abdominal pain, history of kidney stones TECHNIQUE: Multiple axial images are obtained throughout the abdomen and pelvis without the administration of contrast. This exam was performed according to our departmental dose-optimization program, which includes automated exposure control, adjustment of the mA and/or kV according to patient size and/or use of iterative reconstruction technique. Total DLP is 420.87 mGy*cm. COMPARISON: 09/17/2019 FINDINGS: Abdomen: There is minimal bibasilar atelectasis. The lung bases are otherwise clear. There has been decrease in size of apparent adenopathy along the right anterior pericardium seen on axial image 10. There is an irregular contour of the liver consistent with changes of cirrhosis. There is extensive peripancreatic fluid and stranding greatest around the pancreatic tail consistent with changes of acute pancreatitis. There are couple of tiny nonobstructing bilateral renal stones. There are no ureteral stones and no hydronephrosis. The unenhanced solid abdominal organs are otherwise unremarkable. There has been decrease in size of retroperitoneal adenopathy. The abdominal portion of the GI tract is unremarkable. There is no free air in the abdomen. Pelvis: Small amount of free fluid is noted in the pelvis likely related to the pancreatitis. The pelvic portion of the GI tract including the appendix is unremarkable. There is no pelvic adenopathy. No acute bony abnormality is noted. IMPRESSION: 1. Findings consistent with acute pancreatitis. 2. Irregular contour of the liver consistent with changes of cirrhosis. 3. Improvement in abdominal adenopathy, please correlate if the patient underwent treatment for malignancy that would account for this. Otherwise this may represent improved reactive adenopathy.
--- NOTE | 2020-03-29 06:22 | ER Document Report ---
ED GI/ - General Chief Complaint: Abdominal Pain Stated Complaint: ABDOMINAL PAIN Time Seen by Provider: 03/28/20 21:45 Mode of Arrival: Ambulatory Notes: 34-year-old male presented to ED for complaint of severe bilateral abdominal pain that started about 4 PM today. He states he does have a history of kidney stones he also has a defibrillator pacemaker. He is not on any blood thinners that I can see from his prescriptions he has with him. He is alert oriented respirations regular nonlabored speaking in full sentences. He states it feels a little short of breath when he takes a deep breath due to his abdominal pain but he is not nauseated he is not really short of breath he is not coughing congestion and has had no fever. We will get blood urine and CT abdomen pelvis. Will give dose of Burke at this time. Constitutional: Negative for fever. HENT: Negative for sore throat. Eyes: Negative for visual changes. Cardiovascular: Negative for chest pain. Respiratory: Negative for shortness of breath. Gastrointestinal: Complains of epigastric pain started yesterday but he has had loss of appetite for several days due to Genitourinary: Negative for dysuria. Musculoskeletal: Negative for back pain. Skin: Negative for rash. Neurological: Negative for headaches, weakness or numbness. 10 point ROS negative except as marked above and in HPI. VITAL SIGNS: Within normal limits. GENERAL: No acute distress, non-toxic appearance. HEAD: Normal with no signs of head trauma. EYES: PERRLA, EOMI, conjunctiva normal, no discharge. EARS: Hearing grossly intact. NOSE: Normal. THROAT: Oropharynx is normal. NECK: Normal range of motion, no tenderness, supple, no lymphadenopathy, No adenopathy, no JVD. CHEST: Clear breath sounds bilaterally. No wheezes, rales, or rhonchi. CARDIAC: Regular rate and rhythm. S1 and S2, without murmurs, gallops, or rubs. VASCULAR: No Edema. Peripheral pulses normal and equal in all extremities. ABDOMEN: Epigastric tenderness. CT positive for acute pancreatitis, lipase 3819 GASTROINTESTINAL: Bowel sounds normal GENITOURINARY: Normal, No tenderness LYMPATHTIC: No lymphadenopathy noted. MUSCULOSKELETAL: Good range of motion of all major joints. Extremities without clubbing, cyanosis or edema. NEUROLOGICAL: Alert and oriented x 3. No focal sensory or strength deficits. Speech normal. Follows commands appropriately. PSYCHIATRIC: Normal Affect, judgement and mood. SKIN: Normal appearance with no rashes or lesions. TRAVEL OUTSIDE OF THE [place] IN LAST 30 DAYS: No - HPI Patient complains to provider of: Abdominal pain, Other - Painful to eat or drink anything since 03/28/2020. No: Vomiting Onset: Yesterday Timing/Duration: Persistent Quality of pain: Sharp Severity at maximum: Moderate Severity in ED: Moderate Pain Level: 4 Location: Epigastric Associated symptoms: Loss of appetite Exacerbated by: Movement, Food Relieved by: Denies Similar symptoms previously: No Recently seen / treated by doctor: No - Related Data Allergies/Adverse Reactions: sulfamethoxazole [From Bactrim] Allergy (Verified 03/29/20 01:02) trimethoprim [From Bactrim] Allergy (Verified 03/29/20 01:02) Past Medical History - General Information source: Patient - Social History Smoking Status: Current Every Day Smoker Cigarette use (# per day): Yes Smoking Education Provided: Yes Frequency of alcohol use: Heavy Drug Abuse: None Family History: Reviewed & Not Pertinent Patient has suicidal ideation: No Patient has homicidal ideation: No - Past Medical History Cardiac Medical History: Reports: Hx Hypercholesterolemia, Hx Hypertension, Other - Cardiac arrhythmia Pulmonary Medical History: Reports: None EENT Medical History: Reports: None Endocrine Medical History: Reports: None Renal/ Medical History: Reports: Hx Kidney Stones Malignancy Medical History: Reports None GI Medical History: Reports: None Musculoskeletal Medical History: Reports None Skin Medical History: Reports None Psychiatric Medical History: Reports: None Traumatic Medical History: Reports: None Infectious Medical History: Reports: None Past Surgical History: Reports: Hx Cardiac Catheterization - Cardiac ablation 2, Hx Cardiac Surgery - ablation 1 year ago, Hx Pacemaker - Pacemaker defibrillator, Other - Ablation - Immunizations Immunizations up to date: Yes Hx Diphtheria, Pertussis, Tetanus Vaccination: No Physical Exam - Vital signs Vitals: Temp Pulse BP Pulse Ox 97.5 F 49 L 114/72 100 03/28/20 20:55 03/28/20 20:55 03/28/20 20:55 03/28/20 20:55 Course - Re-evaluation Re-evalutation: 03/29/20 07:[address] Corea concerning elevated lipase and pancreatitis on CT. Before I could give him the results of the potassium and sodium he said go ahead and admit him to the IMCU. His potassium was 3.[address] Peters who stated to just give him 1K rider and he recommended getting a magnesium level and make sure he had a EKG on file. He does he does have cardiac history with a pacemaker defibrillator. I have also ordered him 4 mg of morphine I be due to his pain. - Vital Signs Vital signs: Temp Pulse Resp BP Pulse Ox 97.5 F 75 116/88 H 100 03/28/20 20:55 03/29/20 03:40 03/29/20 03:40 03/29/20 03:40 - Laboratory Results Result Diagrams: 03/28/20 22:48 03/28/20 22:48 Laboratory Results Interpreted: 03/28/20 03/28/20 03/28/20 22:48 22:48 22:48 WBC 12.9 H RDW 17.1 H Lymph % (Auto) 8.8 L Absolute Neuts (auto) 10.9 H Seg Neutrophils % 84.4 H Sodium 134.6 L Potassium 3.2 L BUN 25 H Creatinine 1.34 H Glucose 114 H Magnesium Total Bilirubin 1.5 H Alkaline Phosphatase 209 H Lipase Urine Protein 100 H Urine Ketones TRACE H Urine Blood LARGE H Urine Urobilinogen 4.0 H Ur Leukocyte Esterase TRACE H 03/28/20 03/28/20 22:48 22:48 WBC RDW Lymph % (Auto) Absolute Neuts (auto) Seg Neutrophils % Sodium Potassium BUN Creatinine Glucose Magnesium 1.4 L Total Bilirubin Alkaline Phosphatase Lipase 3819.1 H Urine Protein Urine Ketones Urine Blood Urine Urobilinogen Ur Leukocyte Esterase Critical Laboratory Results Reviewed: No Critical Results Attending or Supervising Physician who Reviewed Labs: CHARISSE PETERS - Radiology Results Critical Radiology Results Reviewed: Yes Attending or Supervising Physician who Reviewed Radiology: CHARISSE PETERS Discharge - Discharge Clinical Impression: Pancreatitis Qualifiers: Chronicity: acute Pancreatitis type: alcohol induced Acute pancreatitis complication: unspecified Qualified Code(s): K85.20 - Alcohol induced acute pancreatitis without necrosis or infection Disposition: ADMITTED INPATIENT Admitting Provider: [facility] Unit Admitted: [facility]
[2020-03-29] MEDS: NORMAL SALINE 1000 ML 1,000 ML IV PRN ×2 (06:56→08:03)
[2020-03-29] MEDS ORDERED: MORPHINE SULFATE 10 MG/ML INJ IV ONE (07:33)
[2020-03-29] MEDS ORDERED: POTASSI CL 20 MEQ/50 ML RIDER 20 MEQ/50 ML RTUPB IV ONE (07:33)
[2020-03-29] MEDS ORDERED: DEXTROSE 40% GEL 15 GM TUBE PO PRN ×2 (08:10)
[2020-03-29] MEDS ORDERED: GLUCAGON,HUMAN RECOMB 1 MG INJ SUBCUT PRN (08:10)
[2020-03-29] MEDS ORDERED: DEXTROSE 50%-WATER 25 GM/50 ML DISP.SYRIN IV PRN ×2 (08:10)
[2020-03-29] MEDS ORDERED: DEXTROSE 5%-NORMAL SALINE 1,000 ML IV PRN (08:10)
--- NOTE | 2020-03-29 10:32 | EKG REPORT ---
SEVERITY:- ABNORMAL ECG - SINUS BRADYCARDIA PAIRED VENTRICULAR PREMATURE COMPLEXES RIGHT BUNDLE BRANCH BLOCK : Confirmed by: Robert Cabrera 29-Mar-2020 10:32:25
[2020-03-29 10:47] LABS: PROTHROMBIN TIME 14.4 SEC (11.4-15.4)
[2020-03-29 10:48] LABS: FIBRINOGEN 201 mg/dL (209-497); PARTIAL THROMBOPLASTIN TIME 26.9 SEC (23.5-35.8)
[2020-03-29 10:51] LABS: D-DIMER 1.77 ug/mL (0.00-0.50)
[2020-03-29 11:06] LABS: C-REACTIVE PROTEIN 10.5 mg/L (<10.0)
[2020-03-29] MEDS: HEPARIN SOD (PORCINE) 5,000 UNIT/ML 1 ML VIAL SUBCUT SCH ×3 (11:06→21:31)
[2020-03-29] MEDS: MORPHINE SULFATE 10 MG/ML INJ IV PRN ×3 (11:07→20:33)
[2020-03-29] MEDS: LORAZEPAM INJ 2 MG/1 ML VIAL IV SCH ×2 (11:23→21:31)
--- NOTE | 2020-03-29 19:46 | PDOC H&P ---
History of Present Illness Admission Date/PCP: 03/29/20 07:39 MARKY WEI MD History of Present Illness: AARON ARIZMENDI is a 34 year old male, He has a history of alcohol abuse, he presented to the emergency room for evaluation of abdominal pain, in the emergency room he was found to have elevated serum lipase 3819, CAT scan of the abdomen and pelvis without contrast was obtained, there is minimal bibasilar atelectasis. There is irregular contour of the liver consistent with changes of cirrhosis. There is extensive peripancreatic fluid and stranding greatest around the pancreatic tail consistent with changes of acute pancreatitis.There are couple of tiny nonobstructing bilateral kidney stones. There are no ureteral stones and no hydronephrosis, he has a history of sarcoidosis on this CT scan that was decrease in the size of the retroperitoneal adenopathy Past Medical History Cardiac Medical History: Reports: Hyperlipidema, Hypertension, Other - Cardiac arrhythmia Pulmonary Medical History: Reports: None EENT Medical History: Reports: None Endocrine Medical History: Reports: None, Other - Sarcoidosis Malignancy Medical History: Reports: None GI Medical History: Reports: None Musculoskeltal Medical History: Reports: None Skin Medical History: Reports: None Psychiatric Medical History: Reports: None Traumatic Medical History: Reports: None Infectious Medical History: Reports: None Past Surgical History Past Surgical History: Reports: Cardiac Catheterization - Cardiac ablation 2, Internal Defibrillator, Other - Ablation Social History Smoking Status: Current Every Day Smoker Frequency of Alcohol Use: Heavy Hx Recreational Drug Use: No Drugs: None Hx Prescription Drug Abuse: No Family History Family History: Reviewed & Not Pertinent Parental Family History Reviewed: Yes Children Family History Reviewed: Yes Sibling(s) Family History Reviewed.: Yes Medication/Allergy Home Medications: Amlodipine Besylate [Norvasc 10 mg Tablet] 10 mg PO DAILY 03/29/20 Atorvastatin Calcium [Lipitor 20 mg Tablet] 20 mg PO DAILY 03/29/20 Hydrochlorothiazide [Hydrodiuril 25 mg Tablet] 25 mg PO QAM 03/29/20 Sotalol HCl [Betapace 80 mg Tablet] 1 tab PO Q12 03/29/20 Allergies/Adverse Reactions: sulfamethoxazole [From Bactrim] Allergy (Verified 03/29/20 01:02) trimethoprim [From Bactrim] Allergy (Verified 03/29/20 01:02) Review of Systems Constitutional: PRESENT: fatigue Eyes: ABSENT: visual disturbances Ears: ABSENT: hearing changes Cardiovascular: ABSENT: chest pain, dyspnea on exertion, edema, orthropnea, palpitations Respiratory: ABSENT: cough, hemoptysis Gastrointestinal: PRESENT: abdominal pain Genitourinary: ABSENT: dysuria, hematuria Musculoskeletal: ABSENT: joint swelling Integumentary: ABSENT: rash, wounds Neurological: ABSENT: abnormal gait, abnormal speech, confusion, dizziness, focal weakness, syncope Psychiatric: ABSENT: anxiety, depression, homidical ideation, suicidal ideation Endocrine: ABSENT: cold intolerance, heat intolerance, menstrual abnormalities, polydipsia, polyuria Hematologic/Lymphatic: ABSENT: easy bleeding, easy bruising, lymphadenopathy Physical Exam Vital Signs: Temp Pulse Resp BP Pulse Ox 98.2 F 80 18 120/80 98 03/29/20 15:14 03/29/20 15:14 03/29/20 15:14 03/29/20 15:14 03/29/20 15:14 Intake & Output 03/28/20 03/29/20 03/30/20 06:59 06:59 06:59 Intake Total 2049 Balance 2049 Weight 84.9 kg General appearance: PRESENT: no acute distress Head exam: PRESENT: atraumatic, normocephalic Eye exam: PRESENT: PERRLA Ear exam: PRESENT: normal external ear exam Mouth exam: PRESENT: moist, tongue midline Neck exam: PRESENT: full ROM Respiratory exam: PRESENT: clear to auscultation cecilio Cardiovascular exam: PRESENT: RRR, +S1, +S2 Pulses: PRESENT: normal dorsalis pedis pul, +2 pedal pulses bilateral Vascular exam: PRESENT: normal capillary refill GI/Abdominal exam: PRESENT: normal bowel sounds, soft, tenderness Rectal exam: PRESENT: deferred Neurological exam: PRESENT: alert, CN II-XII grossly intact Psychiatric exam: PRESENT: appropriate affect, normal mood Skin exam: PRESENT: dry, intact, warm Results Laboratory Results: 03/28/20 22:48 03/28/20 22:48 03/28/20 03/28/20 03/28/20 22:48 22:48 22:48 WBC 12.9 H RBC 5.01 Hgb 16.4 Hct 48.5 MCV 97 MCH 32.7 MCHC 33.8 RDW 17.1 H Plt Count 181 Seg Neutrophils % 84.4 H Sodium 134.6 L Potassium 3.2 L Chloride 98 Carbon Dioxide 29 Anion Gap 8 BUN 25 H Creatinine 1.34 H Est GFR ( Amer) > 60 Glucose 114 H Calcium 9.4 Magnesium Ferritin Total Bilirubin 1.5 H AST 37 Alkaline Phosphatase 209 H C-Reactive Protein Total Protein 7.0 Albumin 4.0 Lipase Urine Color JOSÉ Urine Appearance SLIGHTLY-CLOUDY Urine pH 5.0 Ur Specific [place] 1.033 Urine Protein 100 H Urine Glucose (UA) NEGATIVE Urine Ketones TRACE H Urine Blood LARGE H Urine Nitrite NEGATIVE Ur Leukocyte Esterase TRACE H Urine WBC (Auto) 10 Urine RBC (Auto) 47 03/28/20 03/28/20 03/29/20 22:48 22:48 10:28 WBC RBC Hgb Hct MCV MCH MCHC RDW Plt Count Seg Neutrophils % Sodium Potassium Chloride Carbon Dioxide Anion Gap BUN Creatinine Est GFR ( Amer) Glucose Calcium Magnesium 1.4 L Ferritin 290.00 Total Bilirubin AST Alkaline Phosphatase C-Reactive Protein 10.5 H Total Protein Albumin Lipase 3819.1 H Urine Color Urine Appearance Urine pH Ur Specific [place] Urine Protein Urine Glucose (UA) Urine Ketones Urine Blood Urine Nitrite Ur Leukocyte Esterase Urine WBC (Auto) Urine RBC (Auto) 03/28/20 03/29/20 03/29/20 22:48 10:28 10:28 Creatine Kinase 34 L Troponin I < 0.012 < 0.012 Impressions: Abdomen/Pelvis CT 03/28/20 21:51 IMPRESSION: 1. Findings consistent with acute pancreatitis. 2. Irregular contour of the liver consistent with changes of cirrhosis. 3. Improvement in abdominal adenopathy, please correlate if the patient underwent treatment for malignancy that would account for this. Otherwise this may represent improved reactive adenopathy. Assessment & Plan - Diagnosis (1) Acute alcoholic pancreatitis Qualifiers: Acute pancreatitis complication: no infection or necrosis Qualified Code(s): K85.20 - Alcohol induced acute pancreatitis without necrosis or infection Is this a current diagnosis for this admission?: Yes Plan: Patient presents with Alcohol pancreatitis, patient be kept n.p.o., control pain with morphine (2) Liver cirrhosis, alcoholic Qualifiers: Ascites presence: without ascites Qualified Code(s): K70.30 - Alcoholic cirrhosis of liver without ascites Is this a current diagnosis for this admission?: Yes Plan: He has a well compensated liver cirrhosis (3) Sarcoidosis Is this a current diagnosis for this admission?: Yes Plan: CT scan showed improved adenopathy suggesting partial remission of sarcoidosis (4) Chronic kidney disease, stage 3 unspecified Qualifiers: Chronic kidney disease stage 3 subtype: unspecified whether 3a or 3b Qualified Code(s): N18.30 - Chronic kidney disease, stage 3 unspecified Is this a current diagnosis for this admission?: Yes - Time Time Spent: Greater than 70 Minutes Medications reviewed and adjusted accordingly: Yes Anticipated Discharge Disposition: Home, Self Care Anticipated Discharge Timeframe: when bed available - Inpatient Certification Based on my medical assessment, after consideration of the patient's comorbidities, presenting symptoms, or acuity I expect that the services needed warrant INPATIENT care.: Yes I certify that my determination is in accordance with my understanding of Medicare's requirements for reasonable and necessary INPATIENT services [42 CFR 412.3e].: Yes Medical Necessity: Need For IV Fluids, Need for Pain Control
[2020-03-29 20:33] LABS: ALBUMIN 3.2 g/dL (3.5-5.0); ALKALINE PHOSPHATASE 151 U/L (38-126); ANION GAP 6 (5-19); ASPARTATE AMINO TRANSFERASE 34 U/L (17-59); BILIRUBIN,DIRECT 0.7 mg/dL (0.0-0.4); BILIRUBIN,TOTAL 2.3 mg/dL (0.2-1.3); BLOOD UREA NITROGEN 30 mg/dL (7-20); CALCIUM 8.4 mg/dL (8.4-10.2); CARBON DIOXIDE 27 mmol/L (22-30); CHLORIDE 103 mmol/L (98-107); GLUCOSE 94 mg/dL (75-110); TOTAL PROTEIN 5.9 g/dL (6.3-8.2)
[2020-03-29] MEDS: AMLODIPINE BESYLATE 10 MG TABLET PO SCH (20:33)
[2020-03-29] MEDS: THIAMINE HCL 100 MG TABLET PO SCH (20:33)
[2020-03-29 20:34] LABS: POTASSIUM 2.8 mmol/L (3.6-5.0)
[2020-03-29] MEDS: POTASSI CL 20 MEQ/D5NS 1L 1000 ML IV PRN (21:31)
[2020-03-29] MEDS: SOTALOL HCL 80 MG TABLET PO SCH (21:31)
[2020-03-29] MEDS: MAGNESIUM SULFATE 1 GM/D5W 100 ML IV SCH ×2 (21:31→23:53)
[2020-03-29] MEDS: POTASSI CL 20 MEQ/50 ML RIDER 20 MEQ/50 ML RTUPB IV SCH ×2 (22:54→23:54)
[2020-03-30] MEDS: HEPARIN SOD (PORCINE) 5,000 UNIT/ML 1 ML VIAL SUBCUT SCH ×3 (06:17→21:50)
[2020-03-30] MEDS: MORPHINE SULFATE 10 MG/ML INJ IV PRN ×2 (06:53→21:51)
[2020-03-30 07:26] LABS: ALBUMIN 2.6 g/dL (3.5-5.0); ALKALINE PHOSPHATASE 139 U/L (38-126); ASPARTATE AMINO TRANSFERASE 23 U/L (17-59); BILIRUBIN,DIRECT 0.4 mg/dL (0.0-0.4); BILIRUBIN,TOTAL 1.9 mg/dL (0.2-1.3); BLOOD UREA NITROGEN 25 mg/dL (7-20); CALCIUM 8.2 mg/dL (8.4-10.2); CHLORIDE 105 mmol/L (98-107); GLUCOSE 97 mg/dL (75-110); POTASSIUM 3.1 mmol/L (3.6-5.0); TOTAL PROTEIN 5.2 g/dL (6.3-8.2)
[2020-03-30 07:33] LABS: CARBON DIOXIDE 25 mmol/L (22-30)
[2020-03-30 07:34] LABS: ANION GAP 2 (5-19)
[2020-03-30] MEDS: POTASSI CL 20 MEQ/D5NS 1L 1000 ML IV PRN ×2 (08:45→17:36)
--- NOTE | 2020-03-30 09:10 | PDOC CONSULTATION ---
Consultation Consult Date: 03/30/20 Attending physician:: MARKY WEI Provider Consulted: ESTHER NERI Consult reason:: Cardiomyopathy History of Present Illness Admission Date/PCP: 03/29/20 07:39 MARKY WEI MD History of Present Illness: AARON ARIZMENDI is a 34 year old male with hx of hypertension, hyperlipidemia, and nonsustained RVOT VT who r was admitted to our facility yesterday with acute pancreatitis and who is consulted to our service for cardiac evaluation. He is well-known to me from prior evaluations in the office, the last time I evaluated him was in October 2018 however he was seen by the EP service at [facility] in April 2019 at which point he was found to be hemodynamically stable and doing well therefore no changes were made to his medical regimen. The patient underwent repeat ablation of the RVOT and focal ablation of the left ventricular basal mitral valve area on 09/04/17 successfully. Unfortunately he developed symptomatic and frequent PVCs with 2 different morphologies and underwent repeat ablation by Dr. Jenkins at [facility] on 07/02/18 followed by dual-chamber ICD placement for primary prevention by the end of June 2018. His flecainide was switched to sotalol 80 mg twice a day. Today he feels well from the cardiovascular standpoint and denies palpitations, racing heart, chest pain, dizziness, lightheadedness, syncope and presyncope. His cardiac telemetry shows normal sinus rhythm with PVCs without sustained ventricular dysrhythmias. Physical exam on 03/30/2020: GENERAL: Pleasant and conversational. Oriented x3 with normal mood. Not in acute distress. Well groomed and well developed. HEENT: Normocephalic, atraumatic. Pupils equal. Sclerae anicteric. Orophar ynx moist. NECK: No JVD. No carotid bruits. LUNGS: Clear to auscultation bilaterally. Normal respiratory effort without the use of accessory muscles or intercostal retractions. CARDIOVASCULAR: Regular rate and rhythm, normal S1 and S2 without murmurs, rubs, or gallops. PMI not displaced. ABDOMEN: No masses or tenderness to palpation. No bruit. No splenomegaly or hepatomegaly. No abdominal aorta bruit noted. EXTREMITIES: No edema, no cyanosis, no clubbing. +2 pulses femoral and pedal pulses bilaterally. SKIN: No lesions or rashes. MUSCULOSKELETAL: No chest tenderness to palpation. NEUROLOGIC: Nonfocal. No gross sensory or motor deficits bilateral upper or lower extremities. Past Medical History Cardiac Medical History: Reports: Hyperlipidema, Hypertension, Other - Cardiac arrhythmia Pulmonary Medical History: Reports: None EENT Medical History: Reports: None Endocrine Medical History: Reports: None, Other - Sarcoidosis Malignancy Medical History: Reports: None GI Medical History: Reports: None Musculoskeltal Medical History: Reports: None Skin Medical History: Reports: None Psychiatric Medical History: Reports: None Denies: Depression Traumatic Medical History: Reports: None Infectious Medical History: Reports: None Past Surgical History Past Surgical History: Reports: Cardiac Catheterization - Cardiac ablation 2, Internal Defibrillator, Pacemaker - Pacemaker defibrillator, Other - Ablation Social History Smoking Status: Current Every Day Smoker Frequency of Alcohol Use: Heavy Hx Recreational Drug Use: No Drugs: None Hx Prescription Drug Abuse: No Family History Family History: Reviewed & Not Pertinent Parental Family History Reviewed: Yes Children Family History Reviewed: Yes Sibling(s) Family History Reviewed.: Yes Medication/Allergy Home Medications: Amlodipine Besylate [Norvasc 10 mg Tablet] 10 mg PO DAILY 03/29/20 Atorvastatin Calcium [Lipitor 20 mg Tablet] 20 mg PO DAILY 03/29/20 Hydrochlorothiazide [Hydrodiuril 25 mg Tablet] 25 mg PO QAM 03/29/20 Sotalol HCl [Betapace 80 mg Tablet] 1 tab PO Q12 03/29/20 Allergies/Adverse Reactions: sulfamethoxazole [From Bactrim] Allergy (Verified 03/29/20 01:02) trimethoprim [From Bactrim] Allergy (Verified 03/29/20 01:02) Physical Exam Vital Signs: Temp Pulse Resp BP Pulse Ox 98.6 F 70 16 110/67 94 03/30/20 03:39 03/30/20 03:39 03/30/20 03:39 03/30/20 03:39 03/30/20 03:39 Intake & Output 03/29/20 03/30/20 03/31/20 06:59 06:59 06:59 Intake Total 3605 Output Total 300 Balance 3305 Weight 84.9 kg 89.9 kg Results Laboratory Results: 03/30/20 06:39 03/30/20 06:39 03/28/20 03/29/20 03/29/20 22:48 10:28 20:01 WBC RBC Hgb Hct MCV MCH MCHC RDW Plt Count Seg Neutrophils % Sodium 135.5 L Potassium 2.8 L* Chloride 103 Carbon Dioxide 27 Anion Gap 6 BUN 30 H Creatinine 1.36 H Est GFR ( Amer) > 60 Glucose 94 Calcium 8.4 Ferritin 290.00 Total Bilirubin 2.3 H AST 34 Alkaline Phosphatase 151 H C-Reactive Protein 10.5 H Total Protein 5.9 L Albumin 3.2 L Urine Color JOSÉ Urine Appearance SLIGHTLY-CLOUDY Urine pH 5.0 Ur Specific [place] 1.033 Urine Protein 100 H Urine Glucose (UA) NEGATIVE Urine Ketones TRACE H Urine Blood LARGE H Urine Nitrite NEGATIVE Ur Leukocyte Esterase TRACE H Urine WBC (Auto) 10 Urine RBC (Auto) 47 03/30/20 03/30/20 06:39 06:39 WBC Cancelled RBC Cancelled Hgb Cancelled Hct Cancelled MCV Cancelled MCH Cancelled MCHC Cancelled RDW Cancelled Plt Count Cancelled Seg Neutrophils % Cancelled Sodium 132.3 L Potassium 3.1 L Chloride 105 Carbon Dioxide 25 Anion Gap 2 L BUN 25 H Creatinine 1.21 Est GFR ( Amer) > 60 Glucose 97 Calcium 8.2 L Ferritin Total Bilirubin 1.9 H AST 23 Alkaline Phosphatase 139 H C-Reactive Protein Total Protein 5.2 L Albumin 2.6 L Urine Color Urine Appearance Urine pH Ur Specific [place] Urine Protein Urine Glucose (UA) Urine Ketones Urine Blood Urine Nitrite Ur Leukocyte Esterase Urine WBC (Auto) Urine RBC (Auto) 03/28/20 03/29/20 03/29/20 22:48 10:28 10:28 Creatine Kinase 34 L Troponin I < 0.012 < 0.012 Impressions: Abdomen/Pelvis CT 03/28/20 21:51 IMPRESSION: 1. Findings consistent with acute pancreatitis. 2. Irregular contour of the liver consistent with changes of cirrhosis. 3. Improvement in abdominal adenopathy, please correlate if the patient underwent treatment for malignancy that would account for this. Otherwise this may represent improved reactive adenopathy. 03/30/20 06:39 03/30/20 06:39 MCV Cancelled 03/30/20 06:39 MCH Cancelled 03/30/20 06:39 MCHC Cancelled 03/30/20 06:39 RDW Cancelled 03/30/20 06:39 Seg Neutrophils % Cancelled 03/30/20 06:39 Chloride 105 mmol/L (98-107) 03/30/20 06:39 Carbon Dioxide 25 mmol/L (22-30) 03/30/20 06:39 Anion Gap 2 (5-19) L 03/30/20 06:39 Est GFR ( Amer) > 60 (>60) 03/30/20 06:39 Glucose 97 mg/dL (75-110) 03/30/20 06:39 Calcium 8.2 mg/dL (8.4-10.2) L 03/30/20 06:39 Magnesium 1.4 mg/dL (1.6-2.3) L 03/28/20 22:48 Ferritin 290.00 ng/mL (17.9-464.0) 03/29/20 10:28 Total Bilirubin 1.9 mg/dL (0.2-1.3) H 03/30/20 06:39 AST 23 U/L (17-59) 03/30/20 06:39 Alkaline Phosphatase 139 U/L (38-126) H 03/30/20 06:39 C-Reactive Protein 10.5 mg/L (<10.0) H 03/29/20 10:28 Total Protein 5.2 g/dL (6.3-8.2) L 03/30/20 06:39 Albumin 2.6 g/dL (3.5-5.0) L 03/30/20 06:39 Lipase 3819.1 U/L (23-300) H 03/28/20 22:48 Urine Color JOSÉ 03/28/20 22:48 Urine Appearance SLIGHTLY-CLOUDY 03/28/20 22:48 Urine pH 5.0 (5.0-9.0) 03/28/20 22:48 Ur Specific [place] 1.033 03/28/20 22:48 Urine Protein 100 mg/dL (NEGATIVE) H 03/28/20 22:48 Urine Glucose (UA) NEGATIVE mg/dL (NEGATIVE) 03/28/20 22:48 Urine Ketones TRACE mg/dL (NEGATIVE) H 03/28/20 22:48 Urine Blood LARGE (NEGATIVE) H 03/28/20 22:48 Urine Nitrite NEGATIVE (NEGATIVE) 03/28/20 22:48 Ur Leukocyte Esterase TRACE (NEGATIVE) H 03/28/20 22:48 Urine WBC (Auto) 10 /HPF 03/28/20 22:48 Urine RBC (Auto) 47 /HPF 03/28/20 22:48 03/28/20 03/29/20 03/29/20 22:48 10:28 10:28 Creatine Kinase 34 L Troponin I < 0.012 < 0.012 Current Medication List Generic Name Dose Route Start Last Admin Trade Name Freq PRN Reason Stop Dose Admin Amlodipine Besylate 10 mg 03/29/20 20:00 03/29/20 20:33 Amlodipine Besylate 10 Mg Tablet PO 04/28/20 19:59 10 mg DAILY KALYANI Administration Dextrose 12.5 gm 03/29/20 08:10 Dextrose 50%-Water 25 Gm/50 Ml Disp.Syrin IV 04/28/20 08:09 PRN PRN FOR BG 50-69 IN ALERT PATIENT Protocol Dextrose 25 gm 03/29/20 08:10 Dextrose 50%-Water 25 Gm/50 Ml Disp.Syrin IV 04/28/20 08:09 PRN PRN See Label Comments Protocol Glucagon 1 mg 03/29/20 08:10 Glucagon,Human Recomb 1 Mg Inj SUBCUT 04/28/20 08:09 PRN PRN Evaluate for BG < 70 Protocol Glucose 15 gm 03/29/20 08:10 Dextrose 40% Gel 15 Gm Tube PO 04/28/20 08:09 PRN PRN For BG 50-69 in Alert Patient Protocol Glucose 30 gm 03/29/20 08:10 Dextrose 40% Gel 15 Gm Tube PO 04/28/20 08:09 PRN PRN FOR BG < 50 IN ALERT PATIENT Protocol Heparin Sodium (Porcine) 5,000 unit 03/29/20 09:00 03/30/20 06:17 Heparin Sod (Porcine) 5,000 Unit/Ml 1 Ml Vial SUBCUT 04/28/20 08:59 5,000 unit Q8 KALYANI Administration Potassium Chloride/Dextrose/Sod Cl 20 meq in 1,000 mls @ 100 mls/hr 03/29/20 21:00 03/29/20 21:31 D5ns 1000 Ml/Kcl 20 Meq Premix Bag IV 04/28/20 20:59 100 mls/hr CONTINUOUS PRN 100 mls/hr THIS MED IS NOT "PRN" Administration Lorazepam 2 mg 03/29/20 10:00 03/29/20 21:31 Lorazepam Inj 2 Mg/1 Ml Vial IV 04/05/20 09:59 2 mg Q12 KALYANI Administration Morphine Sulfate 2 mg 03/29/20 08:14 03/30/20 06:53 Morphine Sulfate 10 Mg/Ml Inj IV 04/05/20 08:13 2 mg Q4HP PRN Administration FOR PAIN Sodium Chloride 2.5 ml 03/29/20 09:00 03/30/20 05:51 Normal Saline Flush 2.5 Ml Disp.Syrin IV 04/28/20 08:59 Not Given Q8 KALYANI Sotalol HCl 80 mg 03/29/20 22:00 03/29/20 21:31 Sotalol Hcl 80 Mg Tablet PO 04/28/20 21:59 80 mg Q12 KALYANI Administration Thiamine HCl 100 mg 03/29/20 20:00 03/29/20 20:33 Thiamine Hcl 100 Mg Tablet PO 04/28/20 19:59 100 mg DAILY KALYANI Administration Discontinued Medications Generic Name Dose Route Start Last Admin Trade Name Freq PRN Reason Stop Dose Admin Hydrocodone Bitart/Acetaminophen 1 tab 03/28/20 21:54 03/28/20 21:56 Hydrocodone/Acetaminophen 5-325 Mg Tablet PO 03/28/20 21:55 1 tab NOW ONE Administration Sodium Chloride 1,000 mls @ 0 mls/hr 03/29/20 06:15 03/29/20 09:25 Nacl 0.9% 1000 Ml Iv Soln IV Infused X 2 BAGS PRN Infusion THIS MED IS NOT "PRN" Wide Open Potassium Chloride/Water 20 meq in 50 mls @ 25 mls/hr 03/29/20 07:33 03/29/20 10:07 Potassium Chloride Cory 20 Meq/50 Ml IV 03/29/20 09:32 Infused NOW ONE Infusion Dextrose/Sodium Chloride 1,000 mls @ 100 mls/hr 03/29/20 08:10 03/29/20 20:34 D5ns 1000 Ml Iv Soln IV 04/28/20 08:09 0 mls/hr CONTINUOUS PRN Infusion THIS MED IS NOT "PRN" Magnesium Sulfate/Dextrose 1 gm in 100 mls @ 100 mls/hr 03/29/20 21:00 00:53 Magnesium Sulfate Rtu-D5w 1 Gm/100 Ml Premix IV 03/29/20 22:59 Infused Q1H KALYANI Infusion Potassium Chloride/Water 20 meq in 50 mls @ 25 mls/hr 03/29/20 21:45 03/30/20 01:54 Potassium Chloride Cory 20 Meq/50 Ml IV 03/30/20 01:44 Infused Q2H KALYANI Infusion Morphine Sulfate 4 mg 03/29/20 07:33 03/29/20 08:02 Morphine Sulfate 10 Mg/Ml Inj IV 03/29/20 07:34 4 mg NOW ONE Administration Assessment & Plan - Diagnosis (1) Ventricular tachycardia Plan: The patient has remained hemodynamically stable and without evidence of sustained ventricular dysrhythmias. He is on appropriate medical therapy and asymptomatic. However he is hypokalemic. Recommendations: -Continue with current cardiac management. -Strict attention to electrolytes and replace both magnesium and potassium to keep a potassium level above 4.5 in order to avoid electrolyte induced dysrhythmias particularly in the setting of antiarrhythmic therapy. -Echocardiogram to assess for LV function. -Further recommendations pending results of echocardiogram. (2) Acute alcoholic pancreatitis Qualifiers: Acute pancreatitis complication: no infection or necrosis Qualified Code(s): K85.20 - Alcohol induced acute pancreatitis without necrosis or infection Is this a current diagnosis for this admission?: Yes Plan: Further management per hospitalist team.
[2020-03-30 10:00] LABS: ABSOLUTE EOSINOPHILS # (AUTO) 0.1 10^3/uL (0.0-0.6); ABSOLUTE LYMPHOCYTES (AUTO) 0.9 10^3/uL (0.5-4.7); ABSOLUTE MONOCYTES (AUTO) 1.1 10^3/uL (0.1-1.4); ABSOLUTE NEUT (AUTO) 8.2 10^3/uL (1.7-8.2); BASOPHILS % (AUTO) 0.1 % (0-2); EOSINOPHILS % (AUTO) 0.8 % (0-6); LYMPHOCYTES % (AUTO) 8.7 % (13-45); MEAN CORPUSCULAR HEMOGLOBIN 32.9 pg (27.0-33.4); MEAN CORPUSCULAR HGB CONC 34.5 g/dL (32.0-36.0); MEAN CORPUSCULAR VOLUME 95 fl (80-97); MONOCYTES % (AUTO) 10.7 % (3-13); RED BLOOD COUNT 4.09 10^6/uL (4.35-5.55); RED CELL DISTRIBUTION WIDTH 16.5 % (11.5-14.0); SEGMENTED NEUTROPHILS % (AUTO) 79.7 % (42-78); TOTAL CELLS COUNTED % (AUTO) 100 %; WHITE BLOOD COUNT 10.3 10^3/uL (4.0-10.5)
[2020-03-30 10:07] LABS: HEMOGLOBIN 13.5 g/dL (13.5-17.0)
[2020-03-30 10:22] LABS: PLATELET COUNT 85 10^3/uL (150-450)
[2020-03-30] MEDS: THIAMINE HCL 100 MG TABLET PO SCH (10:35)
[2020-03-30] MEDS: AMLODIPINE BESYLATE 10 MG TABLET PO SCH (10:35)
[2020-03-30] MEDS: SOTALOL HCL 80 MG TABLET PO SCH ×2 (10:36→21:49)
[2020-03-30] MEDS: LORAZEPAM INJ 2 MG/1 ML VIAL IV SCH ×2 (10:36→21:49)
[2020-03-30] MEDS: POTASSI CL 20 MEQ/50 ML RIDER 20 MEQ/50 ML RTUPB IV SCH ×2 (15:16→17:31)
--- NOTE | 2020-03-30 15:18 | PDOC PROGRESS REPORT ---
Subjective Date:: 03/30/20 Subjective:: Patient was admitted yesterday for the management of acute alcoholic pancreatiti s, he had episode of ventricular tachycardia, he was seen by Cardiology Reason For Visit: ETOH RELATED PANCREATITIS Physical Exam Vital Signs: Temp Pulse Resp BP Pulse Ox 98.8 F 79 17 115/79 99 03/30/20 12:00 03/30/20 12:00 03/30/20 12:00 03/30/20 12:00 03/30/20 12:00 Intake & Output 03/29/20 03/30/20 03/31/20 06:59 06:59 06:59 Intake Total 3605 1260 Output Total 300 Balance 3305 1260 Weight 84.9 kg 89.9 kg General appearance: PRESENT: no acute distress Respiratory exam: PRESENT: clear to auscultation cecilio Cardiovascular exam: PRESENT: +S1, +S2 GI/Abdominal exam: PRESENT: soft Neurological exam: PRESENT: alert Results Laboratory Results: 03/30/20 09:13 03/30/20 06:39 03/28/20 03/29/20 03/30/20 22:48 20:01 06:39 WBC Cancelled RBC Cancelled Hgb Cancelled Hct Cancelled MCV Cancelled MCH Cancelled MCHC Cancelled RDW Cancelled Plt Count Cancelled Seg Neutrophils % Cancelled Sodium 135.5 L Potassium 2.8 L* Chloride 103 Carbon Dioxide 27 Anion Gap 6 BUN 30 H Creatinine 1.36 H Est GFR ( Amer) > 60 Glucose 94 Calcium 8.4 Total Bilirubin 2.3 H AST 34 Alkaline Phosphatase 151 H Total Protein 5.9 L Albumin 3.2 L Lipase Urine Color JOSÉ Urine Appearance SLIGHTLY-CLOUDY Urine pH 5.0 Ur Specific [place] 1.033 Urine Protein 100 H Urine Glucose (UA) NEGATIVE Urine Ketones TRACE H Urine Blood LARGE H Urine Nitrite NEGATIVE Ur Leukocyte Esterase TRACE H Urine WBC (Auto) 10 Urine RBC (Auto) 47 03/30/20 03/30/20 03/30/20 06:39 06:39 09:13 WBC 10.3 RBC 4.09 L Hgb 13.5 D Hct 39.0 MCV 95 MCH 32.9 MCHC 34.5 RDW 16.5 H Plt Count 85 L Seg Neutrophils % 79.7 H Sodium 132.3 L Potassium 3.1 L Chloride 105 Carbon Dioxide 25 Anion Gap 2 L BUN 25 H Creatinine 1.21 Est GFR ( Amer) > 60 Glucose 97 Calcium 8.2 L Total Bilirubin 1.9 H AST 23 Alkaline Phosphatase 139 H Total Protein 5.2 L Albumin 2.6 L Lipase 1862.5 H Urine Color Urine Appearance Urine pH Ur Specific [place] Urine Protein Urine Glucose (UA) Urine Ketones Urine Blood Urine Nitrite Ur Leukocyte Esterase Urine WBC (Auto) Urine RBC (Auto) 03/28/20 22:48 Clean Catch Midstream Urine Culture - Final Proteus Mirabilis 03/28/20 03/29/20 03/29/20 22:48 10:28 10:28 Creatine Kinase 34 L Troponin I < 0.012 < 0.012 Impressions: Abdomen/Pelvis CT 03/28/20 21:51 IMPRESSION: 1. Findings consistent with acute pancreatitis. 2. Irregular contour of the liver consistent with changes of cirrhosis. 3. Improvement in abdominal adenopathy, please correlate if the patient underwent treatment for malignancy that would account for this. Otherwise this may represent improved reactive adenopathy. Assessment & Plan - Diagnosis (1) Acute alcoholic pancreatitis Qualifiers: Acute pancreatitis complication: no infection or necrosis Qualified Code(s): K85.20 - Alcohol induced acute pancreatitis without necrosis or infection Is this a current diagnosis for this admission?: Yes Plan: Continue present treatment, Start clear liquid diet (2) Liver cirrhosis, alcoholic Qualifiers: Ascites presence: without ascites Qualified Code(s): K70.30 - Alcoholic cirrhosis of liver without ascites Is this a current diagnosis for this admission?: Yes (3) Sarcoidosis Is this a current diagnosis for this admission?: Yes (4) Chronic kidney disease, stage 3 unspecified Qualifiers: Chronic kidney disease stage 3 subtype: unspecified whether 3a or 3b Qualified Code(s): N18.30 - Chronic kidney disease, stage 3 unspecified Is this a current diagnosis for this admission?: Yes - Time Time Spent with patient: 35 or more minutes Level of Care: IMCU Medications reviewed and adjusted accordingly: Yes Anticipated discharge: Home Anticipated DC Timeframe: within 72 hours - Inpatient Certification Based on my medical assessment, after consideration of the patient's comorbidities, presenting symptoms, or acuity I expect that the services needed warrant INPATIENT care.: Yes I certify that my determination is in accordance with my understanding of Medicare's requirements for reasonable and necessary INPATIENT services [42 CFR 412.3e].: Yes
--- NOTE | 2020-03-30 18:12 | XCELERA REPORT ---
[address] [address] Transthoracic Echocardiogram Report Name: AARON ARIZMENDI Age: 34 yrs Gender: Male : 1985 Patient Status: Inpatient Patient Location: [address] [place] [address] Study Date: 03/30/2020 11:31 AM Height: 71 in Weight: 198 lb BSA: 2.1 m2 Procedure: A complete two-dimensional transthoracic echocardiogram was performed (2D, M-mode, spectral and color flow Doppler). The study was technically good with many images being of high quality. Reason For Study: Ventricular tachycardia Ordering Physician: ROBERT NERI Performed By: Beverley Bennett Interpretation Summary The left ventricle is grossly normal size. Borderline concentric LVH. Left ventricular systolic function is low normal. The Ejection Fraction estimate is 45-50%. Doppler measurements suggest impaired left ventricular relaxation, which is associated with grade I/IV or mild diastolic dysfunction. There is mild global hypokinesis of the left ventricle. There is no thrombus. Mild to moderate RV dilatation. Mild to moderate JESSICA. Moderate LAE. There is a device lead in the RV. Device lead present in the right atrium. Trace to mild MR, trace AI, trace TR. MMode/2D Measurements & Calculations RVDd: 4.2 cm LVIDd: 5.4 cm FS: 35.1 % Ao root diam: IVSd: 1.2 cm LVIDs: 3.5 cm EDV(Teich): 2.8 cm 143.2 ml Ao root area: LVPWd: 1.1 cm ESV(Teich): 6.0 cm2 51.7 ml EF(Teich): 63.9 % EDV(MOD-sp4): SV(MOD-sp4): 158.5 ml 98.3 ml ESV(MOD-sp4): 60.3 ml EF(MOD-sp4): 62.0 % Doppler Measurements & Calculations MV E max daphne: MV dec slope: Ao V2 max: LV V1 max P.4 cm/sec 140.7 cm/sec 4.2 mmHg MV A max daphne: 209.8 cm/sec2 Ao max PG: LV V1 max: 67.1 cm/sec MV dec time: 0.23 sec7.9 mmHg 101.9 cm/sec MV E/A: 0.71 PA V2 max: TR max daphne: 102.2 cm/sec 213.2 cm/sec PA max P.2 mmHg TR max P.3 mmHg Left Ventricle The left ventricle is grossly normal size. Borderline concentric LVH. Left ventricular systolic function is low normal. The Ejection Fraction estimate is 45-50%. Doppler measurements suggest impaired left ventricular relaxation, which is associated with grade I/IV or mild diastolic dysfunction. There is mild global hypokinesis of the left ventricle. There is no thrombus. Right Ventricle The right ventricle is mild to moderately dilated. There is a device lead in the RV. The right ventricular systolic function is normal. Atria The right atrium is mild to moderately dilated. Device lead present in the right atrium. The left atrium is moderately dilated. There is no Doppler evidence for an interatrial shunt. Mitral Valve The mitral valve is normal in structure and function. There is no mitral valve stenosis. There is a trace to mild amount of mitral regurgitation. Aortic Valve The aortic valve is grossly normal. There is no aortic valve stenosis. There is a trace amount of aortic regurgitation. Tricuspid Valve The tricuspid is normal in structure and function. There is a trace amount of tricuspid regurgitation. Pulmonic Valve The pulmonic valve is normal in structure and function. Great Vessels The pulmonary artery is normal in size. The inferior vena cava appeared normal and decreased > 50% with respiration (RAP 5-10 mmHg). Effusions There is no pericardial effusion. There is no pleural effusion. : ROBERT NERI, Robert
[2020-03-30 19:49] LABS: ABSOLUTE BASOPHILS # (AUTO) 0.1 10^3/uL (0.0-0.2); ABSOLUTE EOSINOPHILS # (AUTO) 0.2 10^3/uL (0.0-0.6); ABSOLUTE LYMPHOCYTES (AUTO) 1.1 10^3/uL (0.5-4.7); ABSOLUTE MONOCYTES (AUTO) 1.1 10^3/uL (0.1-1.4); ABSOLUTE NEUT (AUTO) 9.1 10^3/uL (1.7-8.2); BASOPHILS % (AUTO) 0.9 % (0-2); EOSINOPHILS % (AUTO) 1.3 % (0-6); HEMATOCRIT 40.8 % (37.9-51.0); LYMPHOCYTES % (AUTO) 9.2 % (13-45); MEAN CORPUSCULAR HEMOGLOBIN 32.5 pg (27.0-33.4); MEAN CORPUSCULAR HGB CONC 34.4 g/dL (32.0-36.0); MEAN CORPUSCULAR VOLUME 95 fl (80-97); MONOCYTES % (AUTO) 9.8 % (3-13); RED BLOOD COUNT 4.32 10^6/uL (4.35-5.55); RED CELL DISTRIBUTION WIDTH 16.9 % (11.5-14.0); SEGMENTED NEUTROPHILS % (AUTO) 78.8 % (42-78); TOTAL CELLS COUNTED % (AUTO) 100 %; WHITE BLOOD COUNT 11.6 10^3/uL (4.0-10.5)
[2020-03-30 20:02] LABS: AMYLASE 288 U/L (30-110); BLOOD UREA NITROGEN 23 mg/dL (7-20); CALCIUM 8.5 mg/dL (8.4-10.2); CHLORIDE 104 mmol/L (98-107); GLUCOSE 88 mg/dL (75-110); POTASSIUM 3.7 mmol/L (3.6-5.0)
[2020-03-30 20:07] LABS: PLATELET COUNT 77 10^3/uL (150-450)
[2020-03-30 20:08] LABS: ANION GAP 3 (5-19); CARBON DIOXIDE 25 mmol/L (22-30)
[2020-03-31] MEDS: POTASSI CL 20 MEQ/D5NS 1L 1000 ML IV PRN ×2 (02:32→15:43)
[2020-03-31] MEDS: HEPARIN SOD (PORCINE) 5,000 UNIT/ML 1 ML VIAL SUBCUT SCH ×3 (06:17→21:02)
[2020-03-31 06:56] LABS: ABSOLUTE BASOPHILS # (AUTO) 0.1 10^3/uL (0.0-0.2); ABSOLUTE EOSINOPHILS # (AUTO) 0.1 10^3/uL (0.0-0.6); ABSOLUTE LYMPHOCYTES (AUTO) 1.2 10^3/uL (0.5-4.7); ABSOLUTE MONOCYTES (AUTO) 1.2 10^3/uL (0.1-1.4); ABSOLUTE NEUT (AUTO) 7.3 10^3/uL (1.7-8.2); BASOPHILS % (AUTO) 0.7 % (0-2); EOSINOPHILS % (AUTO) 1.2 % (0-6); HEMATOCRIT 36.9 % (37.9-51.0); HEMOGLOBIN 12.9 g/dL (13.5-17.0); MEAN CORPUSCULAR HEMOGLOBIN 33.4 pg (27.0-33.4); MEAN CORPUSCULAR VOLUME 95 fl (80-97); MONOCYTES % (AUTO) 12.6 % (3-13); RED BLOOD COUNT 3.86 10^6/uL (4.35-5.55); RED CELL DISTRIBUTION WIDTH 16.7 % (11.5-14.0); SEGMENTED NEUTROPHILS % (AUTO) 73.5 % (42-78); TOTAL CELLS COUNTED % (AUTO) 100 %; WHITE BLOOD COUNT 9.9 10^3/uL (4.0-10.5)
[2020-03-31 07:06] LABS: ALBUMIN 2.5 g/dL (3.5-5.0); ALKALINE PHOSPHATASE 153 U/L (38-126); ANION GAP 5 (5-19); ASPARTATE AMINO TRANSFERASE 28 U/L (17-59); BILIRUBIN,DIRECT 0.7 mg/dL (0.0-0.4); BILIRUBIN,TOTAL 1.9 mg/dL (0.2-1.3); BLOOD UREA NITROGEN 19 mg/dL (7-20); CALCIUM 8.2 mg/dL (8.4-10.2); CARBON DIOXIDE 21 mmol/L (22-30); CHLORIDE 108 mmol/L (98-107); GLUCOSE 90 mg/dL (75-110); POTASSIUM 3.4 mmol/L (3.6-5.0); TOTAL PROTEIN 4.9 g/dL (6.3-8.2)
[2020-03-31 07:15] LABS: PLATELET COUNT 69 10^3/uL (150-450)
[2020-03-31] MEDS: SOTALOL HCL 80 MG TABLET PO SCH ×2 (09:46→21:11)
[2020-03-31] MEDS: THIAMINE HCL 100 MG TABLET PO SCH (09:46)
[2020-03-31] MEDS: AMLODIPINE BESYLATE 10 MG TABLET PO SCH (09:46)
[2020-03-31] MEDS: LORAZEPAM INJ 2 MG/1 ML VIAL IV SCH ×2 (10:16→21:12)
--- NOTE | 2020-03-31 10:50 | PDOC PROGRESS REPORT ---
Subjective Date:: 03/31/20 Subjective:: AARON ARIZMENDI is a 34 year old male with hx of hypertension, hyperlipidemia, an d nonsustained RVOT VT who r was admitted to our facility yesterday with acute pancreatitis and who is consulted to our service for cardiac evaluation. He is well-known to me from prior evaluations in the office, the last time I evaluated him was in October 2018 however he was seen by the EP service at [facility] in April 2019 at which point he was found to be hemodynamically stable and doing well therefore no changes were made to his medical regimen. The patient underwent repeat ablation of the RVOT and focal ablation of the left ventricular basal mitral valve area on 09/04/17 successfully. Unfortunately he developed symptomatic and frequent PVCs with 2 different morphologies and underwent repeat ablation by Dr. Jenkins at [facility] on 07/02/18 followed by dual-chamber ICD placement for primary prevention by the end of June 2018. His flecainide was switched to sotalol 80 mg twice a day. Today he feels well from the cardiovascular standpoint and denies palpitations, racing heart, chest pain, dizziness, lightheadedness, syncope and presyncope. His cardiac telemetry shows normal sinus rhythm with PVCs without sustained ventricular dysrhythmias. 03/31/20: The patient had an uneventful night from the cardiac standpoint. His echocardiogram demonstrated a stable LV systolic function among other findings. His telemetry demonstrated normal sinus rhythm with PVCs but no sustained ventricular dysrhythmias. He feels well from the cardiac standpoint and asymptomatic. Physical exam on 03/31/2020: GENERAL: Pleasant and conversational. Oriented x3 with normal mood. Not in acute distress. Well groomed and well developed. HEENT: Normocephalic, atraumatic. Pupils equal. Sclerae anicteric. Oropharynx moist. NECK: No JVD. No carotid bruits. LUNGS: Clear to auscultation bilaterally. Normal respiratory effort without the use of accessory muscles or intercostal retractions. CARDIOVASCULAR: Regular rate and rhythm, normal S1 and S2 without murmurs, rubs, or gallops. PMI not displaced. ABDOMEN: No masses or tenderness to palpation. No bruit. No splenomegaly or hepatomegaly. No abdominal aorta bruit noted. EXTREMITIES: No edema, no cyanosis, no clubbing. +2 pulses femoral and pedal pulses bilaterally. SKIN: No lesions or rashes. MUSCULOSKELETAL: No chest tenderness to palpation. NEUROLOGIC: Nonfocal. No gross sensory or motor deficits bilateral upper or lower extremities. Reason For Visit: ETOH RELATED PANCREATITIS Physical Exam Vital Signs: Temp Pulse Resp BP Pulse Ox 98.7 F 67 15 105/63 95 03/31/20 04:00 03/31/20 04:00 03/31/20 04:00 03/31/20 04:00 03/31/20 04:00 Intake & Output 03/29/20 03/30/20 03/31/20 06:59 06:59 06:59 Intake Total 3605 3398 Output Total 300 Balance 3305 3398 Weight 84.9 kg 89.9 kg Results Laboratory Results: 03/30/20 03/30/20 03/30/20 06:39 06:39 06:39 WBC Cancelled RBC Cancelled Hgb Cancelled Hct Cancelled MCV Cancelled MCH Cancelled MCHC Cancelled RDW Cancelled Plt Count Cancelled Seg Neutrophils % Cancelled Sodium 132.3 L Potassium 3.1 L Chloride 105 Carbon Dioxide 25 Anion Gap 2 L BUN 25 H Creatinine 1.21 Est GFR ( Amer) > 60 Glucose 97 Calcium 8.2 L Total Bilirubin 1.9 H AST 23 Alkaline Phosphatase 139 H Total Protein 5.2 L Albumin 2.6 L Amylase Lipase 1862.5 H 03/30/20 03/30/20 03/30/20 09:13 19:12 19:12 WBC 10.3 11.6 H RBC 4.09 L 4.32 L Hgb 13.5 D 14.0 Hct 39.0 40.8 MCV 95 95 MCH 32.9 32.5 MCHC 34.5 34.4 RDW 16.5 H 16.9 H Plt Count 85 L 77 L Seg Neutrophils % 79.7 H 78.8 H Sodium 131.6 L Potassium 3.7 Chloride 104 Carbon Dioxide 25 Anion Gap 3 L BUN 23 H Creatinine 1.23 Est GFR ( Amer) > 60 Glucose 88 Calcium 8.5 Total Bilirubin AST Alkaline Phosphatase Total Protein Albumin Amylase 288 H Lipase 939.2 H 03/28/20 22:48 Clean Catch Midstream Urine Culture - Final Proteus Mirabilis 03/28/20 03/29/20 03/29/20 22:48 10:28 10:28 Creatine Kinase 34 L Troponin I < 0.012 < 0.012 Impressions: Abdomen/Pelvis CT 03/28/20 21:51 IMPRESSION: 1. Findings consistent with acute pancreatitis. 2. Irregular contour of the liver consistent with changes of cirrhosis. 3. Improvement in abdominal adenopathy, please correlate if the patient underwent treatment for malignancy that would account for this. Otherwise this may represent improved reactive adenopathy. MCV 95 fl (80-97) 03/30/20 19:12 MCH 32.5 pg (27.0-33.4) 03/30/20 19:12 MCHC 34.4 g/dL (32.0-36.0) 03/30/20 19:12 RDW 16.9 % (11.5-14.0) H 03/30/20 19:12 Seg Neutrophils % 78.8 % (42-78) H 03/30/20 19:12 Chloride 104 mmol/L (98-107) 03/30/20 19:12 Carbon Dioxide 25 mmol/L (22-30) 03/30/20 19:12 Anion Gap 3 (5-19) L 03/30/20 19:12 Est GFR ( Amer) > 60 (>60) 03/30/20 19:12 Glucose 88 mg/dL (75-110) 03/30/20 19:12 Calcium 8.5 mg/dL (8.4-10.2) 03/30/20 19:12 Magnesium 1.4 mg/dL (1.6-2.3) L 03/28/20 22:48 Ferritin 290.00 ng/mL (17.9-464.0) 03/29/20 10:28 Total Bilirubin 1.9 mg/dL (0.2-1.3) H 03/30/20 06:39 AST 23 U/L (17-59) 03/30/20 06:39 Alkaline Phosphatase 139 U/L (38-126) H 03/30/20 06:39 C-Reactive Protein 10.5 mg/L (<10.0) H 03/29/20 10:28 Total Protein 5.2 g/dL (6.3-8.2) L 03/30/20 06:39 Albumin 2.6 g/dL (3.5-5.0) L 03/30/20 06:39 Amylase 288 U/L (30-110) H 03/30/20 19:12 Lipase 939.2 U/L (23-300) H 03/30/20 19:12 Urine Color JOSÉ 03/28/20 22:48 Urine Appearance SLIGHTLY-CLOUDY 03/28/20 22:48 Urine pH 5.0 (5.0-9.0) 03/28/20 22:48 Ur Specific [place] 1.033 03/28/20 22:48 Urine Protein 100 mg/dL (NEGATIVE) H 03/28/20 22:48 Urine Glucose (UA) NEGATIVE mg/dL (NEGATIVE) 03/28/20 22:48 Urine Ketones TRACE mg/dL (NEGATIVE) H 03/28/20 22:48 Urine Blood LARGE (NEGATIVE) H 03/28/20 22:48 Urine Nitrite NEGATIVE (NEGATIVE) 03/28/20 22:48 Ur Leukocyte Esterase TRACE (NEGATIVE) H 03/28/20 22:48 Urine WBC (Auto) 10 /HPF 03/28/20 22:48 Urine RBC (Auto) 47 /HPF 03/28/20 22:48 03/28/20 22:48 Clean Catch Midstream Urine Culture - Final Proteus Mirabilis 03/28/20 03/29/20 03/29/20 22:48 10:28 10:28 Creatine Kinase 34 L Troponin I < 0.012 < 0.012 Current Medication List Generic Name Dose Route Start Last Admin Trade Name Freq PRN Reason Stop Dose Admin Amlodipine Besylate 10 mg 03/29/20 20:00 03/30/20 10:35 Amlodipine Besylate 10 Mg Tablet PO 04/28/20 19:59 10 mg DAILY KALYANI Administration Dextrose 12.5 gm 03/29/20 08:10 Dextrose 50%-Water 25 Gm/50 Ml Disp.Syrin IV 04/28/20 08:09 PRN PRN FOR BG 50-69 IN ALERT PATIENT Protocol Dextrose 25 gm 03/29/20 08:10 Dextrose 50%-Water 25 Gm/50 Ml Disp.Syrin IV 04/28/20 08:09 PRN PRN See Label Comments Protocol Glucagon 1 mg 03/29/20 08:10 Glucagon,Human Recomb 1 Mg Inj SUBCUT 04/28/20 08:09 PRN PRN Evaluate for BG < 70 Protocol Glucose 15 gm 03/29/20 08:10 Dextrose 40% Gel 15 Gm Tube PO 04/28/20 08:09 PRN PRN For BG 50-69 in Alert Patient Protocol Glucose 30 gm 03/29/20 08:10 Dextrose 40% Gel 15 Gm Tube PO 04/28/20 08:09 PRN PRN FOR BG < 50 IN ALERT PATIENT Protocol Heparin Sodium (Porcine) 5,000 unit 03/29/20 09:00 03/31/20 06:17 Heparin Sod (Porcine) 5,000 Unit/Ml 1 Ml Vial SUBCUT 04/28/20 08:59 Not Given Q8 KALYANI Potassium Chloride/Dextrose/Sod Cl 20 meq in 1,000 mls @ 100 mls/hr 03/29/20 21:00 03/31/20 02:32 D5ns 1000 Ml/Kcl 20 Meq Premix Bag IV 04/28/20 20:59 100 mls/hr CONTINUOUS PRN 100 mls/hr THIS MED IS NOT "PRN" Administration Lorazepam 2 mg 03/29/20 10:00 03/30/20 21:49 Lorazepam Inj 2 Mg/1 Ml Vial IV 04/05/20 09:59 2 mg Q12 KALYANI Administration Morphine Sulfate 2 mg 03/29/20 08:14 03/30/20 21:51 Morphine Sulfate 10 Mg/Ml Inj IV 04/05/20 08:13 2 mg Q4HP PRN Administration FOR PAIN Sodium Chloride 2.5 ml 03/29/20 09:00 03/31/20 06:17 Normal Saline Flush 2.5 Ml Disp.Syrin IV 04/28/20 08:59 Not Given Q8 KALYANI Sotalol HCl 80 mg 03/29/20 22:00 03/30/20 21:49 Sotalol Hcl 80 Mg Tablet PO 04/28/20 21:59 80 mg Q12 KALYANI Administration Thiamine HCl 100 mg 03/29/20 20:00 03/30/20 10:35 Thiamine Hcl 100 Mg Tablet PO 04/28/20 19:59 100 mg DAILY KALYANI Administration Discontinued Medications Generic Name Dose Route Start Last Admin Trade Name Freq PRN Reason Stop Dose Admin Hydrocodone Bitart/Acetaminophen 1 tab 03/28/20 21:54 03/28/20 21:56 Hydrocodone/Acetaminophen 5-325 Mg Tablet PO 03/28/20 21:55 1 tab NOW ONE Administration Sodium Chloride 1,000 mls @ 0 mls/hr 03/29/20 06:15 03/29/20 09:25 Nacl 0.9% 1000 Ml Iv Soln IV Infused X 2 BAGS PRN Infusion THIS MED IS NOT "PRN" Wide Open Potassium Chloride/Water 20 meq in 50 mls @ 25 mls/hr 03/29/20 07:33 03/29/20 10:07 Potassium Chloride Cory 20 Meq/50 Ml IV 03/29/20 09:32 Infused NOW ONE Infusion Dextrose/Sodium Chloride 1,000 mls @ 100 mls/hr 03/29/20 08:10 03/29/20 20:34 D5ns 1000 Ml Iv Soln IV 04/28/20 08:09 0 mls/hr CONTINUOUS PRN Infusion THIS MED IS NOT "PRN" Magnesium Sulfate/Dextrose 1 gm in 100 mls @ 100 mls/hr 03/29/20 21:00 03/30/20 00:53 Magnesium Sulfate Rtu-D5w 1 Gm/100 Ml Premix IV 03/29/20 22:59 Infused Q1H KALYANI Infusion Potassium Chloride/Water 20 meq in 50 mls @ 25 mls/hr 03/29/20 21:45 03/30/20 01:54 Potassium Chloride Cory 20 Meq/50 Ml IV 03/30/20 01:44 Infused Q2H KALYANI Infusion Potassium Chloride/Water 20 meq in 50 mls @ 25 mls/hr 03/30/20 15:45 03/30/20 19:35 Potassium Chloride Cory 20 Meq/50 Ml IV 03/30/20 19:44 Infused Q2H KALYANI Infusion Morphine Sulfate 4 mg 03/29/20 07:33 03/29/20 08:02 Morphine Sulfate 10 Mg/Ml Inj IV 03/29/20 07:34 4 mg NOW ONE Administration Assessment & Plan - Diagnosis (1) Ventricular tachycardia Plan: The patient continues to be electrically and hemodynamically stable and without evidence of sustained ventricular dysrhythmias on telemetry. He is on appropriate medical therapy and asymptomatic. Recommendations: -Continue to replace electrolytes as needed. -Continue with current cardiac management. -I will arrange for outpatient cardiology follow up. -Cardiology does not have further recommendations, we will sign off the case for now. Please re-consult as needed. (2) Acute alcoholic pancreatitis Qualifiers: Acute pancreatitis complication: no infection or necrosis Qualified Code(s): K85.20 - Alcohol induced acute pancreatitis without necrosis or infection Is this a current diagnosis for this admission?: Yes Plan: Further management per hospitalist team.
--- NOTE | 2020-03-31 20:59 | PDOC PROGRESS REPORT ---
Subjective Date:: 03/31/20 Subjective:: Patient seen by the bedside, he continues to improve, he has no more abdominal p ain, will advance food from liquid diet to regular diet Reason For Visit: ETOH RELATED PANCREATITIS Physical Exam Vital Signs: Temp Pulse Resp BP Pulse Ox 98.8 F 66 18 115/78 99 03/31/20 12:00 03/31/20 14:00 03/31/20 12:00 03/31/20 12:00 03/31/20 12:00 Intake & Output 03/30/20 03/31/20 04/01/20 06:59 06:59 06:59 Intake Total 3605 3398 2040 Output Total 300 Balance 3305 3398 2040 Weight 89.9 kg 90.8 kg General appearance: PRESENT: no acute distress Eye exam: PRESENT: PERRLA Respiratory exam: PRESENT: clear to auscultation cecilio Cardiovascular exam: PRESENT: +S1, +S2 GI/Abdominal exam: PRESENT: soft Neurological exam: PRESENT: alert Results Laboratory Results: 03/31/20 05:50 03/31/20 05:50 03/31/20 03/31/20 05:50 05:50 WBC 9.9 RBC 3.86 L Hgb 12.9 L Hct 36.9 L MCV 95 MCH 33.4 MCHC 35.0 RDW 16.7 H Plt Count 69 L Seg Neutrophils % 73.5 Sodium 134.1 L Potassium 3.4 L Chloride 108 H Carbon Dioxide 21 L Anion Gap 5 BUN 19 Creatinine 1.18 Est GFR ( Amer) > 60 Glucose 90 Calcium 8.2 L Total Bilirubin 1.9 H AST 28 Alkaline Phosphatase 153 H Total Protein 4.9 L Albumin 2.5 L 03/28/20 03/29/20 03/29/20 22:48 10:28 10:28 Creatine Kinase 34 L Troponin I < 0.012 < 0.012 Impressions: Abdomen/Pelvis CT 03/28/20 21:51 IMPRESSION: 1. Findings consistent with acute pancreatitis. 2. Irregular contour of the liver consistent with changes of cirrhosis. 3. Improvement in abdominal adenopathy, please correlate if the patient underwent treatment for malignancy that would account for this. Otherwise this may represent improved reactive adenopathy. Assessment & Plan - Diagnosis (1) Acute alcoholic pancreatitis Qualifiers: Acute pancreatitis complication: no infection or necrosis Qualified Code(s): K85.20 - Alcohol induced acute pancreatitis without necrosis or infect ion Is this a current diagnosis for this admission?: Yes Plan: Stable advance diet to regular diet (2) Liver cirrhosis, alcoholic Qualifiers: Ascites presence: without ascites Qualified Code(s): K70.30 - Alcoholic cirrhosis of liver without ascites Is this a current diagnosis for this admission?: Yes (3) Sarcoidosis Is this a current diagnosis for this admission?: Yes (4) Chronic kidney disease, stage 3 unspecified Qualifiers: Chronic kidney disease stage 3 subtype: unspecified whether 3a or 3b Qualified Code(s): N18.30 - Chronic kidney disease, stage 3 unspecified Is this a current diagnosis for this admission?: Yes (5) Ventricular tachycardia Is this a current diagnosis for this admission?: Yes Plan: He had a nonsustained V. tach, he was seen by Dr. Martinez cardiology, electrolytes corrected - Time Time Spent with patient: 35 or more minutes Level of Care: IMCU Medications reviewed and adjusted accordingly: Yes Anticipated discharge: Home Anticipated DC Timeframe: within 72 hours
[2020-03-31] MEDS ORDERED: CEFTRIAXONE 1 GM/D5W RTU 1 GM/50 ML RTUPB IV SCH (21:00)
[2020-03-31] MEDS: MORPHINE SULFATE 10 MG/ML INJ IV PRN (21:45)
[2020-04-01] MEDS: POTASSI CL 20 MEQ/D5NS 1L 1000 ML IV PRN (02:13)
[2020-04-01] MEDS: HEPARIN SOD (PORCINE) 5,000 UNIT/ML 1 ML VIAL SUBCUT SCH ×2 (05:59→13:13)
[2020-04-01 07:08] LABS: ABSOLUTE EOSINOPHILS # (AUTO) 0.2 10^3/uL (0.0-0.6); ABSOLUTE LYMPHOCYTES (AUTO) 1.2 10^3/uL (0.5-4.7); ABSOLUTE NEUT (AUTO) 5.8 10^3/uL (1.7-8.2); BASOPHILS % (AUTO) 0.4 % (0-2); EOSINOPHILS % (AUTO) 2.9 % (0-6); HEMOGLOBIN 12.1 g/dL (13.5-17.0); LYMPHOCYTES % (AUTO) 14.2 % (13-45); MEAN CORPUSCULAR HEMOGLOBIN 33.1 pg (27.0-33.4); MEAN CORPUSCULAR HGB CONC 34.5 g/dL (32.0-36.0); MEAN CORPUSCULAR VOLUME 96 fl (80-97); MONOCYTES % (AUTO) 11.7 % (3-13); RED BLOOD COUNT 3.64 10^6/uL (4.35-5.55); RED CELL DISTRIBUTION WIDTH 17.1 % (11.5-14.0); SEGMENTED NEUTROPHILS % (AUTO) 70.8 % (42-78); TOTAL CELLS COUNTED % (AUTO) 100 %; WHITE BLOOD COUNT 8.2 10^3/uL (4.0-10.5)
[2020-04-01 07:30] LABS: ALBUMIN 2.4 g/dL (3.5-5.0); ALKALINE PHOSPHATASE 162 U/L (38-126); ASPARTATE AMINO TRANSFERASE 42 U/L (17-59); BILIRUBIN,DIRECT 0.4 mg/dL (0.0-0.4); BILIRUBIN,TOTAL 1.1 mg/dL (0.2-1.3); BLOOD UREA NITROGEN 16 mg/dL (7-20); CALCIUM 8.1 mg/dL (8.4-10.2); GLUCOSE 95 mg/dL (75-110); POTASSIUM 3.5 mmol/L (3.6-5.0); TOTAL PROTEIN 4.7 g/dL (6.3-8.2)
[2020-04-01 07:36] LABS: CARBON DIOXIDE 22 mmol/L (22-30); CHLORIDE 112 mmol/L (98-107)
[2020-04-01 07:40] LABS: ANION GAP 3 (5-19)
[2020-04-01 08:05] LABS: PLATELET COUNT 71 10^3/uL (150-450)
[2020-04-01] MEDS: LORAZEPAM INJ 2 MG/1 ML VIAL IV SCH (09:30)
[2020-04-01] MEDS: THIAMINE HCL 100 MG TABLET PO SCH (09:37)
[2020-04-01] MEDS: AMLODIPINE BESYLATE 10 MG TABLET PO SCH (09:37)
[2020-04-01] MEDS: SOTALOL HCL 80 MG TABLET PO SCH (09:37)
[2020-04-01 13:13] VITALS: BP 115/78
--- NOTE | 2020-04-01 19:21 | PDOC DISCHARGE SUMMARY ---
Impression - Admit/DC Date/PCP Admission Date/Primary Care Provider: 03/29/20 07:39 MARKY WEI MD Discharge Date: 04/01/20 - Discharge Diagnosis (1) Acute alcoholic pancreatitis Is this a current diagnosis for this admission?: Yes (2) Liver cirrhosis, alcoholic Is this a current diagnosis for this admission?: Yes (3) Sarcoidosis Is this a current diagnosis for this admission?: Yes (4) Chronic kidney disease, stage 3 unspecified Is this a current diagnosis for this admission?: Yes (5) Ventricular tachycardia Is this a current diagnosis for this admission?: Yes - Additional Information Discharge Diet: Cardiac Discharge Activity: Activity As Tolerated Referrals: MARKY WEI MD [Primary Care Provider] - 04/11/20 10:00 am Prescriptions: Sulfamethoxazole/Trimethoprim [Bactrim Ds Tablet] 1 each PO BID #14 tablet Home Medications: Amlodipine Besylate [Norvasc 10 mg Tablet] 10 mg PO DAILY 03/29/20 Atorvastatin Calcium [Lipitor 20 mg Tablet] 20 mg PO DAILY 03/29/20 Hydrochlorothiazide [Hydrodiuril 25 mg Tablet] 25 mg PO QAM 03/29/20 Sotalol HCl [Betapace 80 mg Tablet] 1 tab PO Q12 03/29/20 Sulfamethoxazole/Trimethoprim [Bactrim Ds Tablet] 1 each PO BID #14 tablet 04/01/20 History of Present Illiness History of Present Illness: AARON ARIZMENDI is a 34 year old male, He has a history of alcohol abuse, he presented to the emergency room for evaluation of abdominal pain, in the emergency room he was found to have elevated serum lipase 3819, CAT scan of the abdomen and pelvis without contrast was obtained, there is minimal bibasilar atelectasis. There is irregular contour of the liver consistent with changes of cirrhosis. There is extensive peripancreatic fluid and stranding greatest around the pancreatic tail consistent with changes of acute pancreatitis.There are couple of tiny nonobstructing bilateral kidney stones. There are no ureteral stones and no hydronephrosis, he has a history of sarcoidosis on this CT scan that was decrease in the size of the retroperitoneal adenopathy Hospital Course Hospital Course: Patient was admitted for the management of alcohol induced pancreatitis, He was kept n.p.o., pain control achieved with morphine, he also UTI treated with IV Rocephin. Patient feels much better today, is ready for discharge. Physical Exam Vital Signs: Temp Pulse Resp BP Pulse Ox 98.1 F 70 20 115/78 97 04/01/20 13:10 04/01/20 13:10 04/01/20 13:10 04/01/20 13:10 04/01/20 13:10 Intake & Output 03/31/20 04/01/20 04/02/20 06:59 06:59 06:59 Intake Total 3398 3090 Balance 3398 3090 Weight 90.8 kg 91.6 kg General appearance: PRESENT: no acute distress Eye exam: PRESENT: PERRLA Respiratory exam: PRESENT: clear to auscultation cecilio Cardiovascular exam: PRESENT: +S1, +S2 GI/Abdominal exam: PRESENT: soft Neurological exam: PRESENT: alert, CN II-XII grossly intact Results Laboratory Results: WBC 8.2 10^3/uL (4.0-10.5) 04/01/20 06:58 RBC 3.64 10^6/uL (4.35-5.55) L 04/01/20 06:58 Hgb 12.1 g/dL (13.5-17.0) L 04/01/20 06:58 Hct 35.0 % (37.9-51.0) L 04/01/20 06:58 MCV 96 fl (80-97) 04/01/20 06:58 MCH 33.1 pg (27.0-33.4) 04/01/20 06:58 MCHC 34.5 g/dL (32.0-36.0) 04/01/20 06:58 RDW 17.1 % (11.5-14.0) H 04/01/20 06:58 Plt Count 71 10^3/uL (150-450) L 04/01/20 06:58 Lymph % (Auto) 14.2 % (13-45) 04/01/20 06:58 [place] % (Auto) 11.7 % (3-13) 04/01/20 06:58 Eos % (Auto) 2.9 % (0-6) 04/01/20 06:58 Baso % (Auto) 0.4 % (0-2) 04/01/20 06:58 Absolute Neuts (auto) 5.8 10^3/uL (1.7-8.2) 04/01/20 06:58 Absolute Lymphs (auto) 1.2 10^3/uL (0.5-4.7) 04/01/20 06:58 Absolute Monos (auto) 1.0 10^3/uL (0.1-1.4) 04/01/20 06:58 Absolute Eos (auto) 0.2 10^3/uL (0.0-0.6) 04/01/20 06:58 Absolute Basos (auto) 0.0 10^3/uL (0.0-0.2) 04/01/20 06:58 Seg Neutrophils % 70.8 % (42-78) 04/01/20 06:58 Platelet Estimate Cancelled 03/30/20 06:39 PT 14.4 SEC (11.4-15.4) 03/29/20 10:28 INR 1.10 03/29/20 10:28 APTT 26.9 SEC (23.5-35.8) 03/29/20 10:28 Fibrinogen 201 mg/dL (209-497) L 03/29/20 10:28 D-Dimer 1.77 ug/mL (0.00-0.50) H 03/29/20 10:28 Sodium 136.7 mmol/L (137-145) L 04/01/20 06:58 Potassium 3.5 mmol/L (3.6-5.0) L 04/01/20 06:58 Chloride 112 mmol/L (98-107) H 04/01/20 06:58 Carbon Dioxide 22 mmol/L (22-30) 04/01/20 06:58 Anion Gap 3 (5-19) L 04/01/20 06:58 BUN 16 mg/dL (7-20) 04/01/20 06:58 Creatinine 1.07 mg/dL (0.52-1.25) 04/01/20 06:58 Est GFR ( Amer) > 60 (>60) 04/01/20 06:58 Est GFR (MDRD) Non-Af > 60 (>60) 04/01/20 06:58 Glucose 95 mg/dL (75-110) 04/01/20 06:58 Calcium 8.1 mg/dL (8.4-10.2) L 04/01/20 06:58 Magnesium 1.4 mg/dL (1.6-2.3) L 03/28/20 22:48 Ferritin 290.00 ng/mL (17.9-464.0) 03/29/20 10:28 Total Bilirubin 1.1 mg/dL (0.2-1.3) 04/01/20 06:58 Direct Bilirubin 0.4 mg/dL (0.0-0.4) 04/01/20 06:58 Neonat Total Bilirubin Not Reportable 04/01/20 06:58 Neonat Direct Bilirubin Not Reportable 04/01/20 06:58 Neonat Indirect Bili Not Reportable 04/01/20 06:58 AST 42 U/L (17-59) 04/01/20 06:58 ALT 18 U/L (<50) 04/01/20 06:58 Alkaline Phosphatase 162 U/L (38-126) H 04/01/20 06:58 Lactate Dehydrogenase 173 U/L (120-246) 03/29/20 10:28 Creatine Kinase 34 U/L (55-170) L 03/29/20 10:28 Troponin I < 0.012 ng/mL 03/29/20 10:28 C-Reactive Protein 10.5 mg/L (<10.0) H 03/29/20 10:28 Total Protein 4.7 g/dL (6.3-8.2) L 04/01/20 06:58 Albumin 2.4 g/dL (3.5-5.0) L 04/01/20 06:58 Amylase 288 U/L (30-110) H 03/30/20 19:12 Lipase 939.2 U/L (23-300) H 03/30/20 19:12 Urine Color JOSÉ 03/28/20 22:48 Urine Appearance SLIGHTLY-CLOUDY 03/28/20 22:48 Urine pH 5.0 (5.0-9.0) 03/28/20 22:48 Ur Specific [place] 1.033 03/28/20 22:48 Urine Protein 100 mg/dL (NEGATIVE) H 03/28/20 22:48 Urine Glucose (UA) NEGATIVE mg/dL (NEGATIVE) 03/28/20 22:48 Urine Ketones TRACE mg/dL (NEGATIVE) H 03/28/20 22:48 Urine Blood LARGE (NEGATIVE) H 03/28/20 22:48 Urine Nitrite NEGATIVE (NEGATIVE) 03/28/20 22:48 Urine Bilirubin NEGATIVE (NEGATIVE) 03/28/20 22:48 Urine Urobilinogen 4.0 mg/dL (<2.0) H 03/28/20 22:48 Ur Leukocyte Esterase TRACE (NEGATIVE) H 03/28/20 22:48 Urine WBC (Auto) 10 /HPF 03/28/20 22:48 Urine RBC (Auto) 47 /HPF 03/28/20 22:48 Urine Bacteria (Auto) TRACE /HPF 03/28/20 22:48 Squamous Epi Cells Auto 1 /HPF 03/28/20 22:48 Urine Mucus (Auto) FEW /LPF 03/28/20 22:48 Urine Ascorbic Acid NEGATIVE (NEGATIVE) 03/28/20 22:48 Influenza A (RT-PCR) NEGATIVE (NEGATIVE) 03/29/20 09:40 Influenza B (RT-PCR) NEGATIVE (NEGATIVE) 03/29/20 09:40 RSV (RT-PCR) NEGATIVE (NEGATIVE) 03/29/20 09:40 SARS-CoV-2 Rap RNA(RT-PCR) NEGATIVE (NEGATIVE) 03/29/20 09:40 Group A Strep Rapid NEGATIVE (NEGATIVE) 03/29/20 11:17 Slides for Path Review Cancelled 03/30/20 06:39 03/28/20 03/29/20 22:48 10:28 Troponin I < 0.012 < 0.012 Impressions: Abdomen/Pelvis CT 03/28/20 21:51 IMPRESSION: 1. Findings consistent with acute pancreatitis. 2. Irregular contour of the liver consistent with changes of cirrhosis. 3. Improvement in abdominal adenopathy, please correlate if the patient underwent treatment for malignancy that would account for this. Otherwise this may represent improved reactive adenopathy. Stroke Is this a Stroke Patient?: No Acute Heart Failure Is this a Heart Failure Patient?: No
== END 2020-04-01 15:44 | disposition home or self-care (01) | DRG 439 ==
LOC: ER 20:49 → EH 03-29 07:39 → 3S 03-29 11:59
PROVIDERS: ADMIT Internal Medicine; ATTEND Internal Medicine
DX: K85.20 Alcohol induced acute pancreatitis without necrosis or infection (principal); I47.2 Ventricular tachycardia; N39.0 Urinary tract infection, site not specified; K70.30 Alcoholic cirrhosis of liver without ascites; D86.9 Sarcoidosis, unspecified; N18.30 Chronic kidney disease, stage 3 unspecified; N20.0 Calculus of kidney; I12.9 Hypertensive chronic kidney disease with stage 1 through stage 4 chronic kidney disease, or unspecified chronic kidney disease; F17.210 Nicotine dependence, cigarettes, uncomplicated; Z79.899 Other long term (current) drug therapy; Z95.810 Presence of automatic (implantable) cardiac defibrillator; Z88.1 Allergy status to other antibiotic agents; Z88.2 Allergy status to sulfonamides
CPT/HCPCS: 36415; 74176; 80053; 81001; 82150; 82550; 82728; 83615; 83690; 83735; 84484; 85025; 85379; 85384; 85610; 85730; 86140; 87070; 87086; 87088; 87186; 87880; 93005; 93010; 93306; 99285; 0241U; C9803; J0696; J1644; J2060; J2270; J3475; J3480; J3490; J7030; J7042